=== PATIENT | female | born 1940 | race Caucasian/White ===

== ENCOUNTER 2020-11-19 13:40 | Emergency (ER) | payer MEDICARE, OTHER, SELFPAY ==
--- NOTE | ~2020-11-19 | CT_ITS ---
EXAMINATION: CT thoracic spine wo con EXAM DATE: 11/19/2020 15:47 INDICATION: mid back pain, recent fall . TECHNIQUE: Spiral CT thoracic spine wo con was performed without contrast. Axial, coronal and sagit doron images were reviewed. The dose-length product (DLP) for this examination was 1531.81 mGy-cm. Th e exposure was tailored according to patient size (auto mA exposure control), and iterative reconstru ction (ASIR) was used as additional dose reduction technique. Comparison is made to prior examination from 02/27/2019. FINDINGS: There are treated compression fractures with vertebroplasty at the T11, T12, L1 and L2 leve ls. There is mild compression fracture at T8 superior endplate which is new compared to 2019, could b e an acute finding given hazy paraspinal fat planes at this level. The mild compression fracture at t he level below, T9 was present on prior study and appears unchanged. Bones appear osteopenic. No unst able type fractures identified. 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 IMPRESSION: 1. Mild compression fractures T8 and T9, T8 possibly acute. Reviewed, dictated and finalized at location B.
[2020-11-19 13:42] VITALS: BP 144/69; PULSE 91; RESP 18; TEMP 37; O2SAT 97
--- NOTE | 2020-11-19 15:22 | ED.BACK ---
HPI - Back Pain/Injury General Chief Complaint: Back Pain/Injury <Valerie Gaona PA-C - Last Filed: 11/19/20 16:28> Stated Complaint: BACK PAIN <MARIPOSA Villagran Last Filed: 11/19/20 16:28> Time Seen by Provider: 11/19/20 14:52 <MARIPOSA Villagran Last Filed: 11/19/20 16:28> Source: patient <MARIPOSA Villagran Last Filed: 11/19/20 16:28> Mode of arrival: ambulatory <MARIPOSA Villagran Last Filed: 11/19/20 16:28> Limitations: no limitations <MARIPOSA Villagran Last Filed: 11/19/20 16:28> History of Present Illness HPI Narrative: This is a 80 year old female that presents to the ER for mid back pain present over the last couple of days. Reports the pain is worse with movement and relieved with rest. She has been taking Ibuprofen with some relief. Reports she did have a ground level fall a couple weeks ago. Reports tripping down a step and falling forward. Does not report any certain injuries after this though. Denies decreased range of motion, weakness or numbness. <Valerie Gaona PA-C - Last Filed: 11/19/20 16:28> Related Data Home Medications: Home Medications Medication Instructions Recorded Confirmed ezetimibe-simvastatin [Vytorin 1 tablet PO DAILY 02/27/19 11/19/20 10-40] lisinopril 20 mg PO DAILY 11/19/20 11/19/20 meloxicam 15 mg PO PRN 11/19/20 11/19/20 <MARIPOSA Villagran Last Filed: 11/19/20 16:28> Allergies/Adverse Reactions: Allergies Allergy/AdvReac Type Severity Reaction Status Date / Time atorvastatin Allergy Severe CHEST PAIN Verified 08/25/18 16:15 <MARIPOSA Villagran Last Filed: 11/19/20 16:28> Review of Systems Review of Systems: CONSTITUTIONAL: Denies fever SKIN: Denies rash MUSCULOSKELETAL: Reports back pain, joint pain, and myalgia. NEUROLOGIC: Denies numbness, or weakness. <Valerie Gaona PA-C - Last Filed: 11/19/20 16:28> All systems reviewed & are unremarkable except as noted in HPI and below <Valerie Gaona PA-C - Last Filed: 11/19/20 16:28> PMFSH Past Medical History Medical History: Medical History (Updated 11/19/20 @ 16:26 by Valerie Gaona PA-C) History of hyperlipidemia History of osteopenia <Valerie Gaona PA-C - Last Filed: 11/19/20 16:28> Surgical History Surgical History: Surgical History (Updated 02/27/19 @ 10:28 by Valerie Gaona PA-C) History of cataract extraction History of hysterectomy History of spinal fusion <Valerie Gaona PA-C - Last Filed: 11/19/20 16:28> Social History Social History: Social History (Updated 11/19/20 @ 15:25 by Valerie Gaona PA-C) Substance use: never <Valerie Gaona PA-C - Last Filed: 11/19/20 16:28> Exam Narrative: GENERAL: Elderly, well-nourished, and in no acute distress. HEAD: Normocephalic, atraumatic. EYES: EOMI. CHEST: Clear to auscultation. No respiratory distress. No wheezes rales or rhonchi HEART: Regular rate and rhythm. No murmur heard. Normal peripheral pulses. EXTREMITIES: Normal range of motion. No edema. Strength equal in bilateral upper and lower extremities (5/5) SKIN: Warm, dry, no rash. NEURO: No focal deficits. Alert and oriented x3. PSYCH: Normal mood and affect <Valerie Gaona PA-C - Last Filed: 11/19/20 16:28> Course Vital Signs Vital signs: Vital Signs Temperature 98.6 F 11/19/20 13:42 Pulse Rate 91 11/19/20 13:42 Respiratory Rate 18 11/19/20 13:42 Blood Pressure 144/69 H 11/19/20 13:42 Pulse Oximetry 97 11/19/20 13:42 Temperature 98.6 F 11/19/20 13:42 Pulse Rate 91 11/19/20 13:42 Respiratory Rate 18 11/19/20 13:42 Blood Pressure 144/69 H 11/19/20 13:42 Pulse Oximetry 97 11/19/20 13:42 <Valerie Gaona PA-C - Last Filed: 11/19/20 16:28> MDM - Back Pain/Injury MDM Narrative Medical decision making narrative: Patient presents the emergency department for thoracic back pain noted over the last couple
[2020-11-19] MEDS: ACETAMINOPHEN 500 MG TABLET 1000 MG PO (15:31)
== END 2020-11-19 16:35 | disposition home or self-care (01) ==
PROVIDERS: Emergency Provider General Practice; PCP Internal Medicine
DX: S22.000A Wedge compression fracture of unspecified thoracic vertebra, initial encounter for closed fracture (principal); E78.5 Hyperlipidemia, unspecified; Z98.1 Arthrodesis status; W10.9XXA Fall (on) (from) unspecified stairs and steps, initial encounter
CPT/HCPCS: 72128; 99284; A9270

== ENCOUNTER 2020-12-27 07:40 | Emergency (ER) | payer MEDICARE, OTHER, SELFPAY ==
--- NOTE | ~2020-12-27 | US_ITS ---
EXAMINATION: US right upper quadrant DATE: 12/27/2020 08:49 INDICATION: Right upper quadrant pain TECHNIQUE: Multiple grayscale and Doppler ultrasound images of the abdomen were obtained. COMPARISON: None available FINDINGS: Bowel gas obscures visualization of the pancreas. The visualized portions of the pancreas a re unremarkable. The liver is normal with normal echogenicity and echotexture. No surface nodularity. Normal hepatopetal flow in the main portal vein. There is a 3 mm nonmobile echogenic focus of the ga llbladder. The gallbladder is otherwise normal with no abnormal wall thickening or pericholecystic fl uid. The normal common bile duct measures 6 mm. There was no sonographic Luis sign. IMPRESSION: 1. No sonographic correlate for the patient's symptoms. 2. 3 mm echogenic focus of the gallbladder which could reflect a mobile stone or small polyp. Reviewed, dictated and finalized at location A. IMPRESSION: 1. No sonographic correlate for the patient's symptoms. 2. 3 mm echogenic focus of the gallbladder which could reflect a mobile stone o r small polyp.
[2020-12-27 07:46] VITALS: BP 163/73; PULSE 81; RESP 18; TEMP 36.9; O2SAT 99
[2020-12-27 08:24] LABS: Basophils Absolute Auto 0.1 K/mm3 (0.0-0.1); Basophils Percent Auto 0.9 % (0.2-1.2); Eosinophils Absolute Auto 0.3 K/mm3 (0-0.3); Eosinophils Percent Auto 5.6 % (0-4.4); Hematocrit 40.2 % (37.0-47.0); Hemoglobin 13.3 g/dL (12.0-15.0); Immature Granulocyte Absolute 0.02 K/mm3 (0.00-0.031); Immature Granulocyte Percent A 0.4 % (0-0.5); Lymphocytes Absolute Auto 2.29 K/mm3 (0.9-3.2); Lymphocytes Percent Auto 40.4 % (18.3-44.2); Mean Corpuscular HGB Conc 33.1 g/dl (32-36); Mean Corpuscular Volume 96.6 fl (80-100); Mean Platelet Volume 10.4 fl (7.4-10.4); Monocytes Absolute Auto 0.5 K/mm3 (0.1-0.6); Neutrophils Absolute Auto 2.5 K/mm3 (1.3-6.7); Neutrophils Percent Auto 43.7 % (45.5-73.1); Platelet Count Result 144 k/mm3 (150-375); Red Blood Count 4.16 M/mm3 (4.2-5.4); Red Cell Distribution Width 12.5 % (11.5-14.5); White Blood Count 5.7 K/mm3 (4.5-10.0)
[2020-12-27 08:34] LABS: Alanine Aminotransferase 27 U/L (4-35); Albumin Level 4.3 g/dL (3.5-5.1); Alkaline Phosphatase 68 U/L (38-126); Anion Gap 6 mmol/L (8-16); Aspartate Amino Transferase 34 U/L (14-36); Bilirubin,Total 0.7 mg/dL (0.2-1.3); Blood Urea Nitrogen 21 mg/dL (7-17); Calcium 9.6 mg/dL (8.4-10.2); Carbon Dioxide 27 mmol/L (22-30); Chloride 104 mmol/L (98-107); Estimated CRCL calculation 49 ml/min; Estimated Glomerular Filt Rate > 60; Glucose 114 mg/dL (65-110); Lipase 67 U/L (23-300); Potassium 4.1 mmol/L (3.4-5.0); Sodium 137 mmol/L (137-145)
[2020-12-27 09:15] LABS: Add Urine Microscopic? YES; Appearance Urine Cloudy (Clear); Bilirubin Urine Negative (Negative); Blood Urine Negative (Negative); Color Urine Yellow (Yellow); Glucose Urine UA Negative (Negative); Ketones Urine Negative (Negative); Leukocyte Esterase Ur 2+ LEU/UL (Negative); Mucus Urine Few /lpf; Nitrate Urine Negative (Negative); Protein Urine Negative (Negative); Specific Grav Ur 1.017 (1.001-1.035); Squamous Epithelial Cell Urine Many /hpf (Few); Transitional Epi Cells Urine Rare /hpf (None Seen); Urobilinogen Urine Negative mg/dL (<2.0)
--- NOTE | 2020-12-27 09:47 | ED.GENADULT ---
HPI - General Adult General Chief complaint: Abdominal Pain Stated complaint: flank pain Time Seen by Provider: 12/27/20 07:44 History of Present Illness HPI narrative: Patient is a 80-year-old female who presents ER with epigastric abdominal pain. Ongoing for over a month. Radiates to her right back. Reports worsening over the last 2 days. No fevers or chills or sweats. No nausea or vomiting. Patient thought it may have been related to chronic back pain and underwent vertebroplasty 3 weeks ago but did not improve her abdominal discomfort. She is concerned is related to her gallbladder. She does think it worsens with eating. No urinary symptoms. Reports normal bowel movements. Related Data Home Medications Medication Instructions Recorded Confirmed ezetimibe-simvastatin [Vytorin 1 tablet PO DAILY 02/27/19 11/19/20 10-40] lisinopril 20 mg PO DAILY 11/19/20 11/19/20 meloxicam 15 mg PO PRN 11/19/20 11/19/20 Allergies Allergy/AdvReac Type Severity Reaction Status Date / Time atorvastatin AdvReac Severe CHEST PAIN Verified 12/27/20 07:52 Review of Systems Review of Systems: All systems reviewed & are unremarkable except as noted in HPI and below Constitutional: Constitutional: Denies chills, Denies fever(s) and Denies weakness ENT: Denies nasal congestion and Denies sore throat Cardiovascular: Cardiovascular: Denies chest pain and Denies radiating jaw, neck or arm pain Respiratory: Respiratory: Denies cough, Denies dyspnea and Denies wheezing Gastrointestinal: Gastrointestinal: Reports abdominal pain, Denies bloating, Denies constipation, Denies diarrhea, Denies nausea and Denies vomiting Musculoskeletal: Musculoskeletal: Denies back pain and Denies muscle cramps PMFSH Past Medical History Medical History (Updated 12/27/20 @ 09:52 by Tl Jennings MD) History of hyperlipidemia History of osteopenia Surgical History Surgical History (Updated 12/27/20 @ 09:48 by Tl Jennings MD) History of cataract extraction History of hysterectomy History of spinal fusion History of vertebroplasty Social History Social History (Updated 11/19/20 @ 15:25 by Valerie Gaona PA-C) Substance use: never Exam Narrative: GENERAL: Well-appearing, well-nourished, and in no acute distress. HEAD: Normocephalic, atraumatic. CHEST: Clear to auscultation. No respiratory distress. HEART: Regular rate and rhythm. Normal peripheral pulses. ABDOMEN: Soft, mild right quadrant tenderness without guarding, nondistended, normal active bowel sounds. EXTREMITIES: Normal range of motion. No edema. SKIN: Warm, dry, no rash. NEURO: Alert and oriented x3. PSYCH: Normal mood and affect. Course Course Emergency Course: Unremarkable evaluation. Informed results. No stones on ultrasound. No evidence of cholecystitis. UA contaminated and patient without urinary symptoms. Discharge home and follow-up with PCP for further evaluation. Vital Signs Vital signs: Vital Signs Temperature 98.5 F 12/27/20 07:46 Pulse Rate 81 12/27/20 07:46 Respiratory Rate 18 12/27/20 07:46 Blood Pressure 163/73 H 12/27/20 07:46 Pulse Oximetry 99 12/27/20 07:46 Temperature 98.5 F 12/27/20 07:46 Pulse Rate 81 12/27/20 07:46 Respiratory Rate 18 12/27/20 07:46 Blood Pressure 163/73 H 12/27/20 07:46 Pulse Oximetry 99 12/27/20 07:46 Medical Decision Making Vital Signs Vital Signs: Vital Signs Temperature 98.5 F 12/27/20 07:46 Pulse Rate 81 12/27/20 07:46 Respiratory Rate 18 12/27/20 07:46 Blood Pressure 163/73 H 12/27/20 07:46 Pulse Oximetry 99 12/27/20 07:46 Temperature 98.5 F 12/27/20 07:46 Pulse Rate 81 12/27/20 07:46 Respiratory Rate 18 12/27/20 07:46 Blood Pressure 163/73 H 12/27/20 07:46 Pulse Oximetry 99 12/27/20 07:46 Lab Data Result diagrams: 12/27/20 08:11 12/27/20 08:11 Labs: Lab Results 12/27/20 12/27/20
[2020-12-27 10:20] VITALS: BP 141/85; PULSE 65; RESP 18; O2SAT 98
== END 2020-12-27 10:22 | disposition home or self-care (01) ==
PROVIDERS: Emergency Provider Emergency Medicine; PCP Internal Medicine
DX: R10.11 Right upper quadrant pain (principal); E78.5 Hyperlipidemia, unspecified; M85.80 Other specified disorders of bone density and structure, unspecified site; Z98.49 Cataract extraction status, unspecified eye; Z98.1 Arthrodesis status; R93.2 Abnormal findings on diagnostic imaging of liver and biliary tract
CPT/HCPCS: 36415; 76705; 80053; 81001; 83690; 85025; 99284

== ENCOUNTER 2023-01-29 12:27 | Inpatient (IN) | payer MEDICARE, OTHER, SELFPAY ==
[2023-01-29] VITALS (8 sets, daily range): BP systolic 120–148; BP diastolic 59–88; PULSE 85–102; RESP 11–22; TEMP 36.4–37.6; O2SAT 92–100; BMI 30.2
--- NOTE | ~2023-01-29 | XR_ITS ---
EXAMINATION: XR chest 2V 01/29/2023 13:50 INDICATION: Status post fall. Weakness. PROCEDURE: 2 view chest COMPARISON: No prior studies for comparison. FINDINGS: The lungs are clear. The cardiomediastinal silhouette is within normal limits. There are no pleural effusions. There is no pneumothorax suspected. There are multiple thoracic and lumbar co mpression fractures treated with vertebroplasty. IMPRESSION: 1: NO ACUTE CARDIOPULMONARY DISEASE. Reviewed, dictated and finalized at location B. NICAL TRAINING INSTRUCTOR
--- NOTE | ~2023-01-29 | CT_ITS ---
EXAMINATION: CT hip LT wo con DATE: 01/29/2023 14:49 INDICATION: Left hip fracture TECHNIQUE: Computed tomography (CT) of the left hip was performed without intravenous contrast. The d ose-length product was 243.92 mGy-cm. Automated exposure control and iterative reconstruction [employer] ue were employed. COMPARISON: 01/29/2023 FINDINGS: There is a minimally displaced left femoral intertrochanteric fracture with slight posterio r angulation. Soft tissue surrounding the fracture site, consistent with hematoma. No foreign bodies. No pelvic fractures are seen. 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 IMPRESSION: 1. Mildly displaced left femoral intertrochanteric fracture. Reviewed, dictated and finalized at location B. ENERGY CONSULTANT SUPERVISOR
--- NOTE | ~2023-01-29 | XR_ITS ---
XR hip LT 2V w AP pelvis, XR femur LT min 2V 01/29/2023 13:50 Indication: Left leg pain after fall Procedure: 3 views left hip and 2 views left femur Comparison: No prior studies for comparison. Findings: There is a probable nondisplaced left femoral intertrochanteric fracture. Pelvic rings are intact. There is osteitis pubis. There is lower lumbar spondylosis partially visualized. Impression: 1: Probable nondisplaced left femoral intertrochanteric fracture. Consider confirmation with CT. Reviewed, dictated and finalized at location B. NESS PROCESS REPRESENTATIVE Impression: 1: Probable nondisplaced left femoral intertrochanteric fracture. Consider conf irmation with CT. Impression: 1: Probable nondisplaced left femoral intertrochanteric fracture. Consider conf irmation with CT.
--- NOTE | ~2023-01-29 | CT_ITS ---
EXAMINATION: CT brain wo con DATE: 01/29/2023 13:33 INDICATION: Trauma. Head injury. TECHNIQUE: Computed tomography (CT) of the head was performed without intravenous contrast. The dose- length product was 681.00 mGy-cm. Automated exposure control and iterative reconstruction technique w ere employed. COMPARISON: None FINDINGS: Generalized atrophy. There are scattered mild periventricular and subcortical white matter changes, most likely related to small vessel ischemic disease (microangiopathy). No ventriculomegaly or midline shift. Basilar cisterns are patent. Paranasal sinuses and mastoids are pneumatized. No dep ressed skull fractures. No acute intracranial hemorrhage, infarction, mass or mass effect. IMPRESSION: 1. No acute intracranial abnormality. Reviewed, dictated and finalized at location B. ODIAL WORKER
--- NOTE | ~2023-01-29 | CT_ITS ---
EXAMINATION: CT cervical spine wo con DATE: 01/29/2023 13:34 INDICATION: Neck pain after trauma TECHNIQUE: Computed tomography (CT) of the cervical spine was performed without intravenous contrast. The dose-length product was 221 mGy-cm. Automated exposure control and iterative reconstruction tech nique were employed. COMPARISON: None FINDINGS: Accentuated cervical lordosis. There is degenerative anterolisthesis at C3-4, retrolisthesi s at C5-6 and anterolisthesis at C7-T1. Craniovertebral junction is normal. No paraspinal soft tissue abnormality. Lung apices are normal. Mild dextrocurvature of the cervical spine. There is multilevel uncinate and facet hypertrophy. No evidence for perched facet. IMPRESSION: 1. No acute abnormality of the cervical spine. Reviewed, dictated and finalized at location B. CASTING OPERATOR
--- NOTE | ~2023-01-29 | XR_ITS ---
XR surgery orthopedic Indication: Left intertrochanteric nail placement TECHNIQUE: Fluoroscopy used during Left intertrochanteric nail placement performed by [Matty Markham MD] on 01/31/2023. 89 seconds of fluoroscopy with 6 fluoroscopic images captured. FINDINGS: Correlate with procedure note. IMPRESSION: Fluoroscopy used during Left intertrochanteric nail placement. Reviewed, dictated and finalized at location B. UNICATIONS SUPERINTENDENT
--- NOTE | 2023-01-29 13:00 | ED.FALL ---
HPI - Fall General Chief Complaint: Fall Stated Complaint: fall-ladder 6ft Time Seen by Provider: 01/29/23 12:40 History of Present Illness HPI Narrative: Patient is an 82-year-old female here after a fall off of a ladder. She states that she was in the garage on a 6 ft ladder, about care home up the ladder when she lost her footing and fell to the ground. She notes she fell onto her left side, she does believe that she hit her head. She is currently complaining of left hip and upper leg pain. She was lying on the ground for approximately 45 minutes before family was able to hear her and help her. EMS was called. [facility] gave her 25 mcg of fentanyl which only mildly helped the pain. She is currently complaining of pain in her left hip and left upper leg. Denies any back pain or headache. She denies any blood thinner use. No prodromal chest pain, shortness of breath or lightheadedness prior to the fall. Related Data Home Medications Medication Instructions Recorded Confirmed ezetimibe 10 mg-simvastatin 40 mg 1 tablet PO DAILY 02/27/19 11/19/20 tablet (Vytorin) lisinopril 20 mg tablet 20 mg PO DAILY 11/19/20 11/19/20 meloxicam 15 mg tablet 15 mg PO PRN 11/19/20 11/19/20 Allergies Allergy/AdvReac Type Severity Reaction Status Date / Time atorvastatin AdvReac Severe CHEST PAIN Verified 01/29/23 12:37 Review of Systems Review of Systems: All systems reviewed & are unremarkable except as noted in HPI and below PMFSH Past Medical History Medical History (Updated 01/29/23 @ 14:43 by Brenda Martin MD) History of hyperlipidemia History of osteopenia Surgical History Surgical History (Updated 12/27/20 @ 09:48 by Tl Jennings MD) History of cataract extraction History of hysterectomy History of spinal fusion History of vertebroplasty Social History Social History (Updated 11/19/20 @ 15:25 by Valerie Gaona PA-C) Substance use: never Exam Narrative: GENERAL: Well-appearing, well-nourished, and in no acute distress. HEAD: Normocephalic, atraumatic. EYES: PERRLA and EOMI. ENT: Nares clear. Mucous membranes moist. NECK: Supple. No C-spine tenderness CHEST: Clear to auscultation. No respiratory distress. No chest wall tenderness. HEART: Regular rate and rhythm. Normal peripheral pulses. ABDOMEN: Soft, nontender, nondistended. EXTREMITIES: No thoracic or lumbar tenderness. No upper extremity trauma appreciated. Strong bilateral radial pulses with normal range of motion bilateral upper extremities. Right hip nontender. Strong DP pulses bilaterally. She has tenderness over the lateral left hip and is holding this leg in flexion. Tenderness seems to extend to mid femur. No knee tenderness appreciated. Normal sensation distal to the injury. SKIN: Warm, dry, no rash. NEURO: No focal deficits. Alert and oriented x3. PSYCH: Normal mood and affect. Course Course Emergency Course: Chart review performed. Patient here after a fall with left hip pain. Triage vitals within normal limits. Last visit in our system was for abdominal pain and flank pain in 2020. Patient seen evaluated, appears to be in pain. She appears to have an isolated injury to the left hip and upper leg. Morphine and Zofran ordered for pain. Advised to remain NPO. Will additionally do CT head, C-spine given she did have head injury and is greater than 65, cannot apply Wirt head CT rules. Chest x-ray additionally ordered given mechanism. Basic blood work including a CPK of been ordered as she was down on the floor for 45 minutes waiting for help. Anticipate she will likely have a hip fracture and require hospitalization. Imaging reviewed by myself. She appears to have a left IT fracture. Will discuss with orthopedic surgery. Lab work performed, CBC within normal limits, mild alejandra, will give IVF, CPK only 270, unlikely rhabdomyolysis. Spoke with Dr. Capellan, patient should be NPO at midnight. Spoke with Pamela
--- NOTE | 2023-01-29 13:07 | ECG_ITS ---
Measurements Intervals Loop Rate: 87 P: 35 SC: 192 QRS: -6 QRSD: 105 T: 10 QT: 373 QTc: 449 Interpretive Statements SINUS RHYTHM LOW QRS VOLTAGE IN PRECORDIAL LEADS BASELINE ARTIFACT- I, II, III, AVR, AVL, AVF, V1 BORDERLINE ECG NO PREVIOUS ECG AVAILABLE FOR COMPARISON Electronically Signed On 01-29-2023 13:38:49 AMMUNITION STOREKEEPER by Freddie Toro D.O.
[2023-01-29] MEDS: MORPHINE SULFATE (*CRX) 4 MG/ML INJ IV PUSH (13:08)
[2023-01-29] MEDS: ONDANSETRON INJ 4 MG/2 ML VIAL IV PUSH (13:11)
[2023-01-29 13:59] LABS: Basophils Percent Auto 0.4 % (0.2-1.2); Eosinophils Absolute Auto 0.1 K/mm3 (0-0.3); Eosinophils Percent Auto 0.9 % (0-4.4); Hematocrit 32.9 % (37.0-47.0); Immature Granulocyte Absolute 0.04 K/mm3 (0.00-0.031); Immature Granulocyte Percent A 0.5 % (0-0.5); Lymphocytes Absolute Auto 1.03 K/mm3 (0.9-3.2); Lymphocytes Percent Auto 13.9 % (18.3-44.2); Mean Corpuscular HGB Conc 33.4 g/dl (32-36); Mean Corpuscular Hemoglobin 32.1 pg (26-34); Mean Corpuscular Volume 95.9 fl (80-100); Mean Platelet Volume 10.4 fl (7.4-10.4); Monocytes Absolute Auto 0.5 K/mm3 (0.1-0.6); Monocytes Percent Auto 6.1 % (2.6-8.5); Neutrophils Absolute Auto 5.8 K/mm3 (1.3-6.7); Neutrophils Percent Auto 78.2 % (45.5-73.1); Platelet Count Result 127 k/mm3 (150-375); Red Blood Count 3.43 M/mm3 (4.2-5.4); Red Cell Distribution Width 13.7 % (11.5-14.5); White Blood Count 7.4 K/mm3 (4.5-10.0)
[2023-01-29 14:09] LABS: Alanine Aminotransferase 34 U/L (6-35); Albumin Level 3.9 g/dL (3.5-5.1); Alkaline Phosphatase 81 U/L (38-126); Anion Gap 9 mmol/L (8-16); Aspartate Amino Transferase 46 U/L (14-36); Bilirubin,Total 0.8 mg/dL (0.2-1.3); Blood Urea Nitrogen 40 mg/dL (7-17); Calcium 9.3 mg/dL (8.4-10.2); Carbon Dioxide 24 mmol/L (22-30); Chloride 100 mmol/L (98-107); Creatine Kinase 270 U/L (30-135); Estimated Glomerular Filt Rate 43; Glucose 104 mg/dL (65-110); Potassium 3.5 mmol/L (3.4-5.0); Sodium 133 mmol/L (137-145)
[2023-01-29 14:10] LABS: INR 0.9
[2023-01-29 14:11] LABS: Partial Thromboplastin Time 29.1 SECONDS (22.3-36.8)
[2023-01-29] MEDS: SODIUM CHLORIDE 0.9% IV 1,000 ML 999 ML IV CONT (14:52)
[2023-01-29 15:34] LABS: Appearance Urine Clear (Clear); Bilirubin Urine Negative (Negative); Blood Urine Negative (Negative); Color Urine Yellow (Yellow); Glucose Urine UA Negative (Negative); Ketones Urine Negative (Negative); Leukocyte Esterase Ur Negative LEU/UL (Negative); Nitrate Urine Negative (Negative); Protein Urine Negative (Negative); Specific Grav Ur 1.012 (1.001-1.035); pH Urine 6.5 (5.0-9.0)
[2023-01-29 15:40] LABS: Add Urine Microscopic? NO
--- NOTE | 2023-01-29 16:12 | ADMGEN ---
This patient, Ally Brooks, was admitted to [facility] Room 330-01. Patient/family oriented to hospital policies and general routines including ID bracelet, bed and alarms, visiting hours, pain management, procedures, bathroom and other care routines, personal items, smoking policy, room service/diet, and visiting hours. Information on how to activate the Rapid Response Team has been discussed. Patient/Family are encouraged to report perceived risks to care and to ask questions if they do not understand what they are told or what they should do.
--- NOTE | 2023-01-29 17:19 | PM.IMHP ---
H&P: HPI History of Present Illness Date/Time: 01/29/23 18:00 Chief Complaint: Left hip pain after a fall. Narrative: This is a pleasant 82-year-old female with hypertension, chronic kidney disease stage 3, anemia, and gastroesophageal reflux disease who presented to the emergency department via EMS for evaluation of left hip pain after a fall. The patient provides the following history. She was on the 4th rung of a 6 ft ladder getting some decorations out of the garage when she lost her footing and fell to the ground. She landed on her left side with immediate pain in the left hip and upper leg. She believes that she hit her head but there was no loss of consciousness. She yelled for her but he did not hear her and eventually someone came around about 45 minutes later and called 911. CT of the head and neck were without acute findings. Hip CT showed a mildly displaced left femoral inter trochanteric fracture. She is being admitted in this setting for pain control and orthopedic consultation. At the time my evaluation she feels better after having received morphine. She denies paresthesias, skin color, and temperature changes distal to the fracture site. Review of Systems Review of Systems: Twelve systems were reviewed. No fever, chills, or sweats. No recent cold or flu symptoms. No history of cardiac or pulmonary disease. She denies exertional chest pain and shortness of breath. No orthopnea, paroxysmal nocturnal dyspnea, or lower extremity edema. No nausea, vomiting, or diarrhea. No dysuria. Except as documented, all other systems were reviewed and are negative. [facility] Past Medical History Medical History (Updated 01/29/23 @ 22:07 by Pamela Dinero PA-C) Chronic kidney disease, stage 3 Gastroesophageal reflux disease Hyperlipidemia Hypertension Osteopenia Surgical History Surgical History (Updated 01/29/23 @ 17:24 by Pamela Dinero PA-C) History of bilateral carpal tunnel release History of breast biopsy History of cataract extraction History of hysterectomy History of lumbar fusion History of repair of left rotator cuff History of vertebroplasty Family History Family History (Updated 01/29/23 @ 17:24 by Pamela Dinero PA-C) Other Family history non-contributory Social History Social History (Updated 01/29/23 @ 17:24 by Pamela Dinero PA-C) Social History: Surrogate medical decision maker: Jose Brooks, spouse. Code status: Modified code, no intubation. Okay with CPR and medication. Smoking status: Never smoker Substance use: never Lack of Transportation: No Lack of Food: Never True Current Housing: I Have Housing Concerned About Future Housing: No Difficulty Paying Gas/Electric Bills: No Difficulty Paying for Meds: No Currently Unemployed: No Education: Decline to Answer Difficulty w/ Childcare or Family Care: No Spiritual care concerns: No Meds Home Medications and Allergies Home Medications Medication Instructions Recorded Confirmed Type allopurinol 100 mg tablet 100 mg PO DAILY 01/29/23 01/29/23 History furosemide 40 mg tablet 40 mg PO BID 01/29/23 01/29/23 History losartan 25 mg tablet 25 mg PO DAILY 01/29/23 01/29/23 History pantoprazole 40 mg tablet,delayed 40 mg PO DAILY 01/29/23 01/29/23 History release Allergies Allergy/AdvReac Type Severity Reaction Status Date / Time atorvastatin AdvReac Severe CHEST PAIN Verified 01/29/23 16:13 Vital Signs Vital Signs - 24 hr 01/29/23 12:26 01/29/23 12:55 01/29/23 13:11 Temperature 97.5 F L Pulse Rate 87 85 92 Respiratory Rate 16 19 22 H Blood Pressure 124/73 121/70 148/88 H Pulse Oximetry 100 100 100 Oxygen Delivery Room Air 01/29/23 14:02 01/29/23 14:49 01/29/23 15:06 Temperature Pulse Rate 90 95 96 Respiratory Rate 12 11 L 13 Blood Pressure 130/67 139/70 127/59 L Pulse Oximetry 100 99 92 Oxygen Delivery 01/29/23 16:12 01/29/23 16:45 Temperature
[2023-01-29] MEDS: MORPHINE SULFATE (*CRX) 2 MG/ML INJ IV PUSH ×2 (18:53→23:38)
[2023-01-29] MEDS: traMADol HCL (*CRX) 25 MG TABLET PO (20:42)
[2023-01-30] MEDS: MORPHINE SULFATE (*CRX) 2 MG/ML INJ IV PUSH ×5 (05:33→22:10)
[2023-01-30 06:00] VITALS: BP 107/59; PULSE 85; RESP 18; TEMP 36.8; O2SAT 95
[2023-01-30 06:47] LABS: Hematocrit 29.4 % (37.0-47.0); Hemoglobin 9.7 g/dL (12.0-15.0); Immature Platelet Fraction Pct 2.5 % (0.9-11.2); Mean Corpuscular Hemoglobin 32.3 pg (26-34); Mean Platelet Volume 10.8 fl (7.4-10.4); Platelet Count Result 113 k/mm3 (150-375); Red Cell Distribution Width 13.7 % (11.5-14.5); White Blood Count 7.3 K/mm3 (4.5-10.0)
[2023-01-30 07:15] LABS: Alanine Aminotransferase 26 U/L (6-35); Albumin Level 3.1 g/dL (3.5-5.1); Alkaline Phosphatase 53 U/L (38-126); Anion Gap 6 mmol/L (8-16); Aspartate Amino Transferase 38 U/L (14-36); Bilirubin,Total 0.9 mg/dL (0.2-1.3); Blood Urea Nitrogen 28 mg/dL (7-17); Calcium 8.5 mg/dL (8.4-10.2); Carbon Dioxide 25 mmol/L (22-30); Chloride 105 mmol/L (98-107); Estimated Glomerular Filt Rate 48; Glucose 106 mg/dL (65-110); Magnesium 2.1 mg/dL (1.6-2.3); Potassium 3.6 mmol/L (3.4-5.0); Sodium 136 mmol/L (137-145)
--- NOTE | 2023-01-30 08:10 | PM.CNOR ---
Assessment and Plan Assessment and plan (1) Closed intertrochanteric fracture of left femur: Qualifiers: Encounter type: initial encounter Fracture alignment: displaced Qualified Code(s): S72.142A - Displaced intertrochanteric fracture of left femur, initial encounter for closed fracture Code(s): S72.142A - Displaced intertrochanteric fracture of left femur, initial encounter for closed fracture Status: Acute Assessment and Plan: 82-year-old woman with fall at home yesterday. Left hip fracture with impaction, comminution. New patient evaluation for chief complaint Left hip fracture. History, physical exam and radiographs reviewed with the patient. Discussed the condition, nature, etiology and course of natural history with the patient. Treatment options including surgical and nonoperative treatment were reviewed. Risks and benefits of each as well as alternatives reviewed. The patient's questions were answered. Conservative treatment ice, Pain control, mechanical DVT prophylaxis. Discussed nonoperative and operative treatment options with the patient. Risks and benefits of each as well as alternatives were reviewed. All of the patient's questions were answered. The risks of surgery reviewed including but not limited to: Neurovascular damage, wound complication, infection, blood clot, pulmonary embolus, stroke, myocardial infarction, and anesthetic risks up to and including . Continued pain and possible dysfunction were explained. Specific risks of the procedure including later recurrence of deformity. No guarantees were offered. If hardware used, discussed risk of failure/ breakage and possible need for removal. If complications occur, the patient understands the need for further treatment, possible further surgery. Patient verbalizes understanding and wishes to proceed. PLAN: left reduction with trochanteric nail fixation History of Present Illness HPI Consult date: 01/30/23 Requesting physician: Brenda Martin MD Chief complaint: Left Hip Fracture Narrative: 82-year-old with fall at home yesterday off of ladder. Left hip pain and inability to move left leg found to have left hip fracture. Admitted for further care. Lives at home with . Previous independent ambulator. Denies any prior problems with the left hip. Denies numbness or tingling. Review of Systems Constitutional: Constitutional: Denies fever(s) Eyes: Eyes: Denies blurry vision ENT: Reports Normal hearing present Cardiovascular: Cardiovascular: Denies chest pain and Denies dyspnea Respiratory: Respiratory: Denies dyspnea and Denies wheezing Gastrointestinal: Gastrointestinal: Denies abdominal pain Genitourinary: Genitourinary: Denies urinary urgency Musculoskeletal: Musculoskeletal: Reports as per HPI and Denies numbness Integumentary/Breasts: Skin/Breast: Denies changing lesions and Denies sores Neurologic: Reports Normal hearing present, Denies behavioral changes, Denies confusion, Denies numbness and Denies convulsions Psychiatric: Psychiatric: Denies behavioral changes, Denies confusion and Denies hallucinations Endocrine: Endocrine: Denies heat intolerance Hematologic/Lymphatic: Hematologic/Lymphatic: Denies easy bleeding Allergic/Immunologic: Allergic/Immunologic: Denies wheezing PMFSH Past Medical History Medical History Chronic kidney disease, stage 3 Gastroesophageal reflux disease Hyperlipidemia Hypertension Osteopenia Surgical History Surgical History History of bilateral carpal tunnel release History of breast biopsy History of cataract extraction History of hysterectomy History of lumbar fusion History of repair of left rotator cuff History of vertebroplasty Family History Family History Other Family history non
[2023-01-30] MEDS: ACETAMINOPHEN 325 MG TABLET 650 MG PO (10:10)
[2023-01-30] MEDS: LOSARTAN POTASSIUM 25 MG TABLET PO (10:11)
[2023-01-30] MEDS: allopurinoL 100 MG TABLET PO (10:11)
[2023-01-30] MEDS: PANTOPRAZOLE 40 MG TABLET PO (10:11)
[2023-01-30] MEDS: FUROSEMIDE 40 MG TABLET PO (10:11)
[2023-01-30] MEDS: SODIUM CHLORIDE 0.9% IV 1,000 ML 75 ML IV CONT ×2 (11:15→22:10)
[2023-01-30 14:00] VITALS: BP 99/51; PULSE 74; RESP 16; TEMP 35.7; O2SAT 97
--- NOTE | 2023-01-30 14:37 | PM.IMPN ---
Progress Note: A&P Assessment and Plan (1) Closed intertrochanteric fracture of left femur: Qualifiers: Encounter type: initial encounter Fracture alignment: displaced Qualified Code(s): S72.142A - Displaced intertrochanteric fracture of left femur, initial encounter for closed fracture Code(s): S72.142A - Displaced intertrochanteric fracture of left femur, initial encounter for closed fracture Status: Acute Assessment and Plan: Hip CT showed left inter trochanteric fracture Ortho consulted, to have surgical repair tomorrow at 12 continue pain control (2) Elevated creatine kinase: Code(s): R74.8 - Abnormal levels of other serum enzymes Status: Acute Assessment and Plan: CK was a bit elevated but likely due to being on the ground for 45 minutes post fall. Repeat CK level in a.m (3) Chronic kidney disease, stage 3: Code(s): N18.30 - Chronic kidney disease, stage 3 unspecified Status: Chronic Assessment and Plan: chronic kidney disease stage 3 and her creatinine today is 1.10. continue to monitor Subjective Date/time seen: 01/30/23 14:37 Interval history: Patient is an 82 YO female with PMH hypertension, chronic kidney disease stage 3, anemia, and gastroesophageal reflux disease admitted from ER for left hip pain after a fall. She was on the 4th rung of a 6 ft ladder getting some decorations out of the garage when she lost her footing and fell to the ground. She landed on her left side with immediate pain in the left hip and upper leg. She believes that she hit her head but there was no loss of consciousness. CT of the head and neck showed no acute findings. Hip CT showed a mildly displaced left femoral inter trochanteric fracture. She denies paresthesias, skin color, and temperature changes distal to the fracture site. Ortho consulted and scheduled for surgery tomorrow at noon. Will make NPO at midnight, continue pain control and fluids per her son's request. PT/OT and care coordination consulted for d/c planning post surgery as she will likely need rehab placement. Review of Systems Review of Systems: Twelve systems were reviewed. No fever, chills, or sweats. No recent cold or flu symptoms. No history of cardiac or pulmonary disease. She denies exertional chest pain and shortness of breath. No orthopnea, paroxysmal nocturnal dyspnea, or lower extremity edema. No nausea, vomiting, or diarrhea. No dysuria. Except as documented, all other systems were reviewed and are negative. Exam Narrative: General: Well-developed female appearing younger than her stated age supine in bed in moderate pain. HEENT: Normocephalic, atraumatic. PERRL, EOMI. Oral mucosa moist. Neck: Supple. Respiratory: Lungs are clear to auscultation bilaterally. Cardiovascular: RRR with S1-S2. Gastrointestinal: Abdomen is soft, nontender, and nondistended with positive bowel sounds. Skin: Warm and dry. No rash or lesions on limited exam. Extremities: No cyanosis, clubbing, or edema. Radial and pedal pulses intact. Musculoskeletal: She is tender to palpation over the left anterolateral hip. Neurological: Alert and oriented. Cranial nerves 2-12 are grossly intact. No gross focal deficits to casual conversation. Psychiatric: Pleasant and cooperative with normal mood and affect. Judgment and insight intact. Objective Data Vital Signs Vital Signs: Vital Signs - 24 hr 01/29/23 14:49 01/29/23 15:06 01/29/23 16:12 Temperature 97.6 F Pulse Rate 95 96 102 H Respiratory Rate 11 L 13 18 Blood Pressure 139/70 127/59 L 148/66 H Pulse Oximetry 99 92 98 Oxygen Delivery 01/29/23 16:45 01/29/23 22:00 01/30/23 06:00 Temperature 99.6 F 98.3 F Pulse Rate 90 85 Respiratory Rate 18 18 Blood Pressure 120/60 107/59 L Pulse Oximetry 97 95 Oxygen Delivery Room Air 01/30/23 10:11 01/30/23 14:00 Temperature 96.2 F L Pulse Rate 74 Respiratory Rate 16 Blo
[2023-01-30] MEDS: TIZANIDINE HCL 2 MG TABLET PO (15:31)
[2023-01-30 20:00] VITALS: PULSE 74; RESP 16; O2SAT 97
[2023-01-30 22:00] VITALS: BP 120/61; PULSE 79; RESP 12; TEMP 36.9; O2SAT 96
[2023-01-31] VITALS (12 sets, daily range): BP systolic 106–134; BP diastolic 51–67; PULSE 83–101; RESP 12–18; TEMP 36–38.8; O2SAT 92–100
[2023-01-31] MEDS: TIZANIDINE HCL 2 MG TABLET PO (00:50)
[2023-01-31] MEDS: MORPHINE SULFATE (*CRX) 2 MG/ML INJ IV PUSH ×5 (01:52→20:44)
[2023-01-31 05:43] LABS: Basophils Percent Auto 0.2 % (0.2-1.2); Eosinophils Absolute Auto 0.2 K/mm3 (0-0.3); Hematocrit 30.4 % (37.0-47.0); Immature Granulocyte Absolute 0.06 K/mm3 (0.00-0.031); Immature Granulocyte Percent A 0.6 % (0-0.5); Immature Platelet Fraction Pct 2.4 % (0.9-11.2); Lymphocytes Absolute Auto 1.53 K/mm3 (0.9-3.2); Lymphocytes Percent Auto 15.8 % (18.3-44.2); Mean Corpuscular HGB Conc 32.9 g/dl (32-36); Mean Corpuscular Hemoglobin 32.3 pg (26-34); Mean Corpuscular Volume 98.1 fl (80-100); Mean Platelet Volume 10.4 fl (7.4-10.4); Monocytes Absolute Auto 0.9 K/mm3 (0.1-0.6); Monocytes Percent Auto 9.5 % (2.6-8.5); Neutrophils Percent Auto 71.9 % (45.5-73.1); Platelet Count Result 106 k/mm3 (150-375); Red Cell Distribution Width 13.7 % (11.5-14.5); White Blood Count 9.7 K/mm3 (4.5-10.0)
[2023-01-31 06:08] LABS: Anion Gap 7 mmol/L (8-16); Blood Urea Nitrogen 28 mg/dL (7-17); Calcium 8.3 mg/dL (8.4-10.2); Carbon Dioxide 26 mmol/L (22-30); Chloride 105 mmol/L (98-107); Creatine Kinase 137 U/L (30-135); Estimated Glomerular Filt Rate 53; Glucose 106 mg/dL (65-110); Potassium 3.7 mmol/L (3.4-5.0); Sodium 138 mmol/L (137-145)
--- NOTE | 2023-01-31 08:24 | WPDHPUPDATE1 ---
History and Physical Update Update Date/Time: 01/31/23 08:24 History and Physical has been reviewed, including an updated exam of the patient. There are NO changes in the patient's condition. Risks, benefits, and alternatives have been discussed and questions answered. Patient agrees to proceed with procedure.
--- NOTE | 2023-01-31 09:03 | PM.IMPN ---
Progress Note: A&P Assessment and Plan (1) Closed intertrochanteric fracture of left femur: Qualifiers: Encounter type: initial encounter Fracture alignment: displaced Qualified Code(s): S72.142A - Displaced intertrochanteric fracture of left femur, initial encounter for closed fracture Code(s): S72.142A - Displaced intertrochanteric fracture of left femur, initial encounter for closed fracture Status: Acute Assessment and Plan: 01/30/[address] showed left inter trochanteric fracture Ortho consulted, to have surgical repair tomorrow at 12 continue pain control 01/31/23: S/P Trochanteric nail fixation of left hip intertrochanteric fracture. Continue pain control PT and OT ordered for tomorrow, will likely need rehab placement Orthopedics following (2) Elevated creatine kinase: Code(s): R74.8 - Abnormal levels of other serum enzymes Status: Acute Assessment and Plan: 01/30/23: CK was a bit elevated but likely due to being on the ground for 45 minutes post fall. Repeat CK level in a.m 01/31/23: Total CK 137 (3) Chronic kidney disease, stage 3: Code(s): N18.30 - Chronic kidney disease, stage 3 unspecified Status: Chronic Assessment and Plan: 01/30/23: chronic kidney disease stage 3 and her creatinine today is 1.10. continue to monitor 01/31/23: BUN 28, creatinine 1.0 Continue to monitor Time Spent With Patient Time with patient: Greater than 35 minutes Subjective Date/time seen: 01/31/23 09:03 Interval history: This is an 82 year old female who presented to the hospital after sustaining a fall from a 6 foot ladder. Patient was on the 4th rung when she lost her footing falling on her left side. She had immediate pain in the left hip and upper leg. Work up in the hospital includes a head CT which was negative for any acute intracranial abnormality; CT of the C-spine was negative for any acute abnormality; probable nondisplaced left femoral intertrochanteric fracture; left femur x-ray shown probable nondisplaced left femoral intertrochanteric fracture; chest x-ray which did not reveal any acute cardiopulmonary disease; Left hip CT which revealed mild displaced left femoral intertrochanteric fracture. Orthopedics was consulted. UA was negative for bacteria. Total CK 270, BUN 40, Creatinine 1.20 On examination today patient is alert and oriented x4, lying in the bed. She denies any pain at this time. S/P ORIF of left hip fracture. Currently has an ice bag to her left hip with two small incisions present that are well approximated. VSS, she is on room air, she remains afebrile. She denies any nausea, vomiting, diarrhea, shortness of breath, chest pain, or abdominal pain. Labs today revealed WBC 9.7, Hgb 10., Hct 30.4,Na+ 138, K+ 3.7, Chloride 105, BUN 28, Creatinine 1.0, Ca+ 8.3, Total CK 137. Review of Systems Review of Systems: All systems reviewed & are unremarkable except as noted in HPI and below Constitutional: Constitutional: Reports as per HPI and Reports no additional constitutional complaints Eyes: Eyes: Reports as per HPI and Reports no additional eye complaints ENT: Reports system reviewed and no additional complaints, except as documented and Reports as per HPI Cardiovascular: Cardiovascular: Reports as per HPI and Reports no additional cardiovascular complaints Respiratory: Respiratory: Reports as per HPI and Reports no additional respiratory complaints Gastrointestinal: Gastrointestinal: Reports as per HPI and Reports no additional gastrointestinal complaints Genitourinary: Genitourinary: Reports no additional female genitourinary complaints and Reports as per HPI Musculoskeletal: Musculoskeletal: Reports no additional musculoskeletal complaints and Reports as per HPI Integumentary/Breasts: Skin/Breast: Reports system reviewed and no additional complaints, except as docu and Reports as per HPI Neurologic: Reports system re
[2023-01-31] MEDS: ACETAMINOPHEN 500 MG TABLET 1000 MG PO (11:35)
[2023-01-31] MEDS: LACTATED RINGERS 1,000 ML 30 ML IV CONT ×2 (11:45→13:40)
--- NOTE | 2023-01-31 11:45 | WPDANESEPPF ---
Anes - Initial Pre Proc Eval Procedure: Operation Date: 01/31/23 12:00 Proposed Procedures p Left Hip Intertrochanteric Nail(Left) - Matty Markham MD Date/Time: 01/31/23 11:45 Surgeon: Truong Sylvester MD Pre Op Diagnosis: Left Hip Fracture Patient Data Age: 82 Gender: F Height: 1.5 m Weight: 68 kg Last Vital Signs Temp 36.6 C 01/31/23 04:18 Pulse 87 01/31/23 04:18 Resp 16 01/31/23 04:18 BP 130/61 01/31/23 04:18 Pulse Ox 98 01/31/23 04:18 O2 Del Method Room Air 01/31/23 08:10 Allergies Allergy/AdvReac Type Severity Reaction Status Date / Time atorvastatin AdvReac Severe CHEST PAIN Verified 01/31/23 11:23 Home Medications Medication Instructions Recorded Confirmed Type allopurinol 100 mg tablet 100 mg PO DAILY 01/29/23 01/29/23 History furosemide 40 mg tablet 40 mg PO BID 01/29/23 01/29/23 History losartan 25 mg tablet 25 mg PO DAILY 01/29/23 01/29/23 History pantoprazole 40 mg tablet,delayed 40 mg PO DAILY 01/29/23 01/29/23 History release Laboratory Tests 01/31/23 05:19 WBC 9.7 K/mm3 (4.5-10.0) RBC 3.10 L M/mm3 (4.2-5.4) Hgb 10.0 L g/dL (12.0-15.0) Hct 30.4 L % (37.0-47.0) MCV 98.1 fl (80-100) MCH 32.3 pg (26-34) MCHC 32.9 g/dl (32-36) RDW 13.7 % (11.5-14.5) Plt Count 106 L k/mm3 (150-375) MPV 10.4 fl (7.4-10.4) Immature Gran % (Auto) 0.6 H % (0-0.5) Neut % (Auto) 71.9 % (45.5-73.1) Lymph % (Auto) 15.8 L % (18.3-44.2) Mcduffie % (Auto) 9.5 H % (2.6-8.5) Eos % (Auto) 2.0 % (0-4.4) Baso % (Auto) 0.2 % (0.2-1.2) Lymph # (Auto) 1.53 K/mm3 (0.9-3.2) [place]duffie # (Auto) 0.9 H K/mm3 (0.1-0.6) Eos # (Auto) 0.2 K/mm3 (0-0.3) Baso # (Auto) 0.0 K/mm3 (0.0-0.1) Abs Immat Gran (auto) 0.06 H K/mm3 (0.00-0.031) Absolute Neuts (auto) 7.0 H K/mm3 (1.3-6.7) Absolute Nucleated RBC 0.0 K/mm3 (0.0-0.012) Nucleated RBC % 0.0 % (0.0-0.2) % Immature Plt Fraction 2.4 % (0.9-11.2) Sodium 138 mmol/L (137-145) Potassium 3.7 mmol/L (3.4-5.0) Chloride 105 mmol/L (98-107) Carbon Dioxide 26 mmol/L (22-30) Anion Gap 7 L mmol/L (8-16) BUN 28 H mg/dL (7-17) Creatinine 1.00 mg/dL (0.7-1.0) Estim Creat Clear Calc Not Reportable Estimated GFR 53 L (59 - ) Glucose 106 mg/dL (65-110) Calcium 8.3 L mg/dL (8.4-10.2) Total Creatine Kinase 137 H U/L (30-135) Patient hx anesthesia problems: none Family hx anesthesia problems: none Results Review: All pre-operative results and documents have been reviewed as part of the pre-operative evaluation. [facility] Past Medical History Medical History Chronic kidney disease, stage 3 Gastroesophageal reflux disease Hyperlipidemia Hypertension Osteopenia Surgical History Surgical History History of bilateral carpal tunnel release History of breast biopsy History of cataract extraction History of hysterectomy History of lumbar fusion History of repair of left rotator cuff History of vertebroplasty Family History Family History Other Family history non-contributory Social History Social History Social History: Surrogate medical decision maker: Jose Brooks, spouse. Code status: Modified code, no intubation. Okay with CPR and medication. Smoking status: Never smoker Substance use: never Lack of Transportation: No Lack of Food: Never True Current Housing: I Have Housing Concerned About Future Housing: No Difficulty Paying Gas/Electric Bills: No Difficulty Paying for Meds: No Currently Unemployed: No Education: Decline to Answer Difficulty w/ Childcare or Family Care: No Spiritual care conc
[2023-01-31] MEDS: KETOROLAC 15 MG/ML VIAL (*BKC) IV PUSH (11:53)
[2023-01-31] MEDS: TRANEXAMIC ACID 1,000MG/ISO100 1,000 MG/100 ML BAG 200 MG IVPB (11:53)
[2023-01-31] MEDS: ceFAZolin 2 GM/D5W 50 ML 2 GM/50 ML BAG IVPB (12:15)
[2023-01-31] MEDS: BUPIVACAINE/EPINEPHRINE 0.5% 50 ML VIAL INFILTRATE (13:03)
--- NOTE | 2023-01-31 13:47 | W.PM.PROC2 ---
Procedure Note - Detailed Date of Procedure 01/31/23 Pre-op Diagnosis Left Hip Fracture Post-op Diagnosis Same Procedure Performed Trochanteric nail fixation left hip intertrochanteric fracture Surgeon Matty Markham MD [employer] Specialist 1st banking assistant Anesthesia General Indications 82-year-old woman who fell and sustained a left hip intertrochanteric fracture. Presents for operative treatment Description of Procedure After informed consent the operative extremity was marked in the preoperative holding area. Patient received intravenous antibiotics. The patient was taken to the operative room, placed in the supine position, general anesthesia induced by the anesthesia team. Patient was placed on a fracture table with longitudinal traction applied to the left leg. Right leg was extended out of the field. The hip fracture was reduced to near anatomic position and verified with image intensification. A time-out was performed confirming the patient, site of the surgery and plan. The left lower extremity was prepped and draped sterilely from the knee to the iliac crest region using a ChloraPrep skin solution. Incision was made just proximal to greater trochanter down to the subcutaneous tissues. Hemostasis controlled with electrocautery. Blunt dissection through the fascia to the tip of the greater trochanter. A starter awl was placed at the tip of the greater trochanter into the medullary canal of the femur. This was checked with image intensification and was in good position. Intramedullary guide pérez positioned. A one-step hand reaming done proximally. Intramedullary canal was reamed with a 12.5 millimeter flexible reamer. Neck angle selected off of preoperative radiographs temp plating. 130 degree 12mm X 20cm Nail opened on the back table and assembled. This was then inserted over the guide pérez to the correct depth. Guide pérez removed. Lag screw was then placed with a stab incision over the lateral femur using a 10 blade knife. Blunt dissection down to the lateral side of the bone. Soft tissue protectors placed. Guide pin placed in the center- center position of the femoral head and measured. 85 millimeter x 10 millimeter lag screw placed to correct depth and verified with image intensification. Traction released from the leg and compression of the fracture performed with the external compression device. Distal locking of the nail then performed. Stab incision made lateral distal thigh. Blunt dissection down lateral side of the femur. Soft tissue protector placed. Femur drilled from lateral to medial through the distal nail. Distal femur measured and the appropriate size screw placed. Image intensification confirmed the placement through the locking hole. Final image intensification confirmed reduction of the fracture and placement of the hardware. Wounds then thoroughly irrigated with antibiotic solution. Fascia repaired with 0 Vicryl interrupted suture. Subcutaneous tissue repaired with 00 Vicryl interrupted suture and skin repaired with 3-0 Monocryl subcuticular stitch and Dermabond. Sterile dressings applied. Patient then awoke from anesthesia, extubated, taken to recovery room stable condition. All sponge, needle and instrument counts correct at the end the case. Implants Arthrex left side standard trochanteric nail, 12 mm, 130 degree with 85 mm lag screw, 42 mm distal locking screw. Left handed screw utilized. Estimated Blood Loss -50.0 Urine Output -325.0 Drains No Packing No Pathology None sent Complications None Condition Stable Disposition PACU [facility] Billing Surgery - Charge Forward: Surgery Billing ([id number])
[2023-01-31] MEDS: FUROSEMIDE 40 MG TABLET PO (17:11)
[2023-01-31] MEDS: SENNA/DOCUSATE SODIUM TABLET 2 TAB PO (17:11)
--- NOTE | 2023-01-31 19:25 | PC.NURSE ---
On 01/31/23, the ARCHIVIST POLITICAL HISTORY, Reta Munoz, provided care and completed [facility]le[facility] documentation on this patient. I have reviewed the ARCHIVIST POLITICAL HISTORY's documentation and agree with the findings.
[2023-01-31] MEDS: ceFAZolin 1 GM/NS 50 ML 1 GM/50 ML BAG IVPB (20:06)
[2023-01-31] MEDS: SODIUM CHLORIDE 0.9% IV 1,000 ML 75 ML IV CONT (20:06)
--- NOTE | 2023-01-31 20:08 | PC.NURSE ---
Pt arrived to the unit post op and was reporting no pain. Pt resting comfortably in bed. Pt tolerating diet and was able to take medication. Pt has family at bedside. Pt monitored for any changes in status. Report given to broth mixer nurse.
[2023-02-01 00:25] VITALS: BP 103/61; PULSE 85; RESP 16; TEMP 36.2; O2SAT 97
[2023-02-01] MEDS: TIZANIDINE HCL 2 MG TABLET PO (01:33)
[2023-02-01] MEDS: ceFAZolin 1 GM/NS 50 ML 1 GM/50 ML BAG IVPB ×2 (03:53→11:34)
[2023-02-01 05:23] VITALS: BP 99/63; PULSE 73; RESP 16; TEMP 36.2; O2SAT 100
[2023-02-01 06:30] LABS: Basophils Percent Auto 0.1 % (0.2-1.2); Hematocrit 28.3 % (37.0-47.0); Hemoglobin 9.1 g/dL (12.0-15.0); Immature Granulocyte Absolute 0.08 K/mm3 (0.00-0.031); Immature Granulocyte Percent A 0.5 % (0-0.5); Immature Platelet Fraction Pct 4.8 % (0.9-11.2); Lymphocytes Absolute Auto 0.88 K/mm3 (0.9-3.2); Mean Corpuscular HGB Conc 32.2 g/dl (32-36); Mean Corpuscular Hemoglobin 31.9 pg (26-34); Mean Corpuscular Volume 99.3 fl (80-100); Mean Platelet Volume 10.8 fl (7.4-10.4); Monocytes Absolute Auto 0.9 K/mm3 (0.1-0.6); Neutrophils Absolute Auto 12.7 K/mm3 (1.3-6.7); Neutrophils Percent Auto 87.4 % (45.5-73.1); Platelet Count Result 91 k/mm3 (150-375); Red Blood Count 2.85 M/mm3 (4.2-5.4); Red Cell Distribution Width 13.6 % (11.5-14.5); White Blood Count 14.6 K/mm3 (4.5-10.0)
[2023-02-01 06:42] LABS: Anion Gap 7 mmol/L (8-16); Blood Urea Nitrogen 36 mg/dL (7-17); Calcium 8.3 mg/dL (8.4-10.2); Carbon Dioxide 23 mmol/L (22-30); Chloride 105 mmol/L (98-107); Estimated Glomerular Filt Rate 43; Glucose 127 mg/dL (65-110); Sodium 135 mmol/L (137-145)
[2023-02-01 07:30] LABS: Ovalocytes 1+ (NORMAL)
[2023-02-01 07:31] LABS: Anisocytosis 1+ (NORMAL); Schistocytes None Seen (NORMAL)
--- NOTE | 2023-02-01 08:21 | PM.IMPN ---
Progress Note: A&P Assessment and Plan (1) Closed intertrochanteric fracture of left femur: Qualifiers: Encounter type: initial encounter Fracture alignment: displaced Qualified Code(s): S72.142A - Displaced intertrochanteric fracture of left femur, initial encounter for closed fracture Code(s): S72.142A - Displaced intertrochanteric fracture of left femur, initial encounter for closed fracture Status: Acute Assessment and Plan: 01/30/[address] showed left inter trochanteric fracture Ortho consulted, to have surgical repair tomorrow at 12 continue pain control 01/31/23: S/P Trochanteric nail fixation of left hip intertrochanteric fracture. Continue pain control PT and OT ordered for tomorrow, will likely need rehab placement Orthopedics following 02/01/23: Post op day 1 from a trochanteric nail fixation of the left hip intertrochanteric fracture. Continue pain control PT and OT to eval and treat today Orthopedic surgery following Will touch base with case management for outpatient rehab needs. reporting a sore throat today and difficulty swallowing, will start throat lozengers and will get speech therapy to see for bedside swallow study Reporting restless legs, will order Requip for tonight. Plan to discontinue garcia in the morning (2) Elevated creatine kinase: Code(s): R74.8 - Abnormal levels of other serum enzymes Status: Acute Assessment and Plan: 01/30/23: CK was a bit elevated but likely due to being on the ground for 45 minutes post fall. Repeat CK level in a.m 01/31/23: Total CK 137 02/01/23: Trending down as of yesterday. (3) Chronic kidney disease, stage 3: Code(s): N18.30 - Chronic kidney disease, stage 3 unspecified Status: Chronic Assessment and Plan: 01/30/23: chronic kidney disease stage 3 and her creatinine today is 1.10. continue to monitor 01/31/23: BUN 28, creatinine 1.0 Continue to monitor 02/01/23: BUN 36, Creatinine 1.20 continue to trend labs Time Spent With Patient Time with patient: 25 - 35 minutes Subjective Date/time seen: 02/01/23 08:21 Interval history: 01/31/23: This is an 82 year old female who presented to the hospital after sustaining a fall from a 6 foot ladder. Patient was on the 4th rung when she lost her footing falling on her left side. She had immediate pain in the left hip and upper leg. Work up in the hospital includes a head CT which was negative for any acute intracranial abnormality; CT of the C-spine was negative for any acute abnormality; probable nondisplaced left femoral intertrochanteric fracture; left femur x-ray shown probable nondisplaced left femoral intertrochanteric fracture; chest x-ray which did not reveal any acute cardiopulmonary disease; Left hip CT which revealed mild displaced left femoral intertrochanteric fracture. Orthopedics was consulted. UA was negative for bacteria. Total CK 270, BUN 40, Creatinine 1.20 On examination today patient is alert and oriented x4, lying in the bed. She denies any pain at this time. S/P ORIF of left hip fracture. Currently has an ice bag to her left hip with two small incisions present that are well approximated. VSS, she is on room air, she remains afebrile. She denies any nausea, vomiting, diarrhea, shortness of breath, chest pain, or abdominal pain. Labs today revealed WBC 9.7, Hgb 10., Hct 30.4,Na+ 138, K+ 3.7, Chloride 105, BUN 28, Creatinine 1.0, Ca+ 8.3, Total CK 137. 02/01/23: On examination today patient is alert oriented x4, sitting in the chair. Vital signs are stable, she remains on room air, she is afebrile. She states that she is not experiencing much pain in the left hip. She has been working with physical therapy and occupational therapy. She denies any fever, chills, nausea, vomiting, diarrhea, abdominal pain, chest pain, shortness of breath. She does report restless leg syndrome and I ordered Requip for her
--- NOTE | 2023-02-01 09:18 | PM.PNORT ---
Progress Note: A&P Assessment and Plan (1) Closed intertrochanteric fracture of left femur: Qualifiers: Encounter type: initial encounter Fracture alignment: displaced Qualified Code(s): S72.142A - Displaced intertrochanteric fracture of left femur, initial encounter for closed fracture <Kelli Hernandez BUSINESS SERVICES ASSISTANT - Last Filed: 02/01/23 09:54> Code(s): S72.142A - Displaced intertrochanteric fracture of left femur, initial encounter for closed fracture <Kellisa Abelino Hernandez BUSINESS SERVICES ASSISTANT - Last Filed: 02/01/23 09:54> Status: Acute <Kellisa Abelino Hernandez BUSINESS SERVICES ASSISTANT - Last Filed: 02/01/23 09:54> Assessment and Plan: POD #1 : Trochanteric nail fixation left hip intertrochanteric fracture Continue PT/OT. WBAT. Walker. HIGH FALL RISK. Continue pain control. Ice Hip. Protect skin. DVT prophylaxis with Arixtra. SCDs. Incentive Spirometry Use reviewed. Monitor Incisions. Dermabond in place. Bowel Regimen. Dispo: SCOTT pending progress with PT/OT <Kelli Hernandez, BUSINESS SERVICES ASSISTANT - Last Filed: 02/01/23 09:54> POD #1 : Trochanteric nail fixation left hip intertrochanteric fracture Continue PT/OT. WBAT. Walker. HIGH FALL RISK. Continue pain control. Ice Hip. Protect skin. DVT prophylaxis with Arixtra. SCDs. Incentive Spirometry Use reviewed. Monitor Incisions. Dermabond in place. Bowel Regimen. Dispo: SCOTT pending progress with PT/OT Plan switch from Arixtra to aspirin for DVT prophylaxis at discharge. <Matty Markham MD - Last Filed: 02/01/23 11:03> (2) Dysphagia: Qualifiers: Dysphagia type: unspecified Qualified Code(s): R13.10 - Dysphagia, unspecified <Kelli Hernandez BUSINESS SERVICES ASSISTANT - Last Filed: 02/01/23 09:54> Code(s): R13.10 - Dysphagia, unspecified <Kellisa Abelino Hernandez BUSINESS SERVICES ASSISTANT - Last Filed: 02/01/23 09:54> Status: Acute <Kelli Hernandez BUSINESS SERVICES ASSISTANT - Last Filed: 02/01/23 09:54> Assessment and Plan: Patient reports difficulty with swallowing s/p anesthesia. Appreciate hospitalist recommendations. Swallow study to be initiated. <RODERICK Metcalf - Last Filed: 02/01/23 09:54> Assessment and Plan: Reviewed postoperative exam, labs, vitals with attending MD, Dr. Markham, who agrees with plans as indicated above. No further recommendations at this time. <RODERICK Metcalf - Last Filed: 02/01/23 09:54> Subjective Subjective Date/Time Seen: 02/01/23 09:18 <RODERICK Metcalf - Last Filed: 02/01/23 09:54> Post Op day: 1 <RODERICK Metcalf - Last Filed: 02/01/23 09:54> Interval history: POD #1: Trochanteric nail fixation left hip intertrochanteric fracture Pain well controlled. Concerns about difficulty with swallowing s/p anesthesia. No difficulties preoperatively. <RODERICK Metcalf - Last Filed: 02/01/23 09:54> Review of Systems Constitutional: Constitutional: Denies chills, Denies fatigue, Denies fever(s), Denies night sweats and Denies weakness <RODERICK Metcalf - Last Filed: 02/01/23 09:54> Cardiovascular: Cardiovascular: Denies chest pain, Denies lightheadedness, Denies palpitations and Denies dyspnea <RODERICK Metcalf - Last Filed: 02/01/23 09:54> Respiratory: Respiratory: Denies cough, Denies dyspnea and Denies wheezing <RODERICK Metcalf - Last Filed: 02/01/23 09:54> Gastrointestinal: Gastrointestinal: Denies abdominal pain, Reports dysphagia, Denies diarrhea, Denies nausea and Denies vomiting <RODERICK Metcalf - Last Filed: 02/01/23 09:54> Musculoskeletal: Musculoskeletal: Reports arthralgias (left hip ), Reports joint swelling (left hip ) and Denies numbness <RODERICK Metcalf - Last Filed: 02/01/23 09:54> Neurologic: Denies numbness and Denies weakness <RODERICK Metcalf - Last Filed: 02/01/23 09:54> Endocrine: Endocrine: Denies fatigue and Denies palpitations <RODERICK Metcalf - Last Filed: 02/01/23 09:54> Allergic/Immunologic: Allergic/Immunologic: Denies wheezing <KIRIT Metcalf
[2023-02-01] MEDS: LOSARTAN POTASSIUM 25 MG TABLET PO (09:32)
[2023-02-01] MEDS: allopurinoL 100 MG TABLET PO (09:32)
[2023-02-01] MEDS: SENNA/DOCUSATE SODIUM TABLET 2 TAB PO ×2 (09:32→17:26)
[2023-02-01] MEDS: traMADol HCL (*CRX) 25 MG TABLET PO (09:32)
[2023-02-01] MEDS: PANTOPRAZOLE 40 MG TABLET PO (09:33)
[2023-02-01] MEDS: polyethylene glycoL 3350 17 GM POWD.PACK PO (09:33)
[2023-02-01] MEDS: FUROSEMIDE 40 MG TABLET PO ×2 (09:33→17:26)
[2023-02-01 12:22] VITALS: BP 108/58; PULSE 78; RESP 16; TEMP 36.2; O2SAT 99
--- NOTE | 2023-02-01 15:36 | PCSTNOTE ---
Bedside swallowing evaluation completed. Patient reportedly coughed when drinking water earlier today. She was recently intubated during hip surgery and states that her throat is sore. She states that she has no difficulty swallowing other than throat pain. Cursory oral peripheral examination results within normal limits. Patient reports that she ate chicken noodle soup for lunch and drank water with no difficulty and that she has lozenges for throat pain which are helping. Trials of water were given by straw in uncontrolled amounts. No signs of aspiration or any other swallowing difficulty occurred. Patient accepted one bite of chilled applesauce but refused to trial other food textures due to sore throat. Again, swallowing of pureed consistency was within normal limits. Recommend thin liquids and pureed consistency food and advance diet as tolerated by patient's pain threshold for sore throat. No further speech therapy is recommended. Please note that silent aspiration cannot be ruled out at bedside and can be evaluated with a modified barium swallow study. Thank you for the referral of this patient.
[2023-02-01 16:34] VITALS: BP 110/62; PULSE 80; TEMP 36.6; O2SAT 100
--- NOTE | 2023-02-01 19:36 | PC.NURSE ---
Reta Munoz provided care for this patient on 02/01/23. I have reviewed her assessments and agree with her charting
[2023-02-01] MEDS: rOPINIRole HCL 0.125 MG TABLET PO (20:01)
[2023-02-01 20:05] VITALS: O2SAT 99
[2023-02-01 23:25] VITALS: BP 131/65; PULSE 92; RESP 18; TEMP 36.7; O2SAT 99
[2023-02-02 06:49] VITALS: BP 137/72; PULSE 88; RESP 16; TEMP 36.7; O2SAT 98
[2023-02-02 06:59] LABS: Hemoglobin 9.3 g/dL (12.0-15.0); Immature Platelet Fraction Pct 4.1 % (0.9-11.2); Mean Corpuscular HGB Conc 33.2 g/dl (32-36); Mean Corpuscular Hemoglobin 32.6 pg (26-34); Mean Corpuscular Volume 98.2 fl (80-100); Mean Platelet Volume 10.8 fl (7.4-10.4); Platelet Count Result 122 k/mm3 (150-375); Red Blood Count 2.85 M/mm3 (4.2-5.4); Red Cell Distribution Width 13.7 % (11.5-14.5); White Blood Count 11.8 K/mm3 (4.5-10.0)
[2023-02-02 07:10] LABS: Alanine Aminotransferase 19 U/L (6-35); Albumin Level 2.9 g/dL (3.5-5.1); Alkaline Phosphatase 61 U/L (38-126); Anion Gap 8 mmol/L (8-16); Aspartate Amino Transferase 47 U/L (14-36); Bilirubin,Total 0.7 mg/dL (0.2-1.3); Blood Urea Nitrogen 39 mg/dL (7-17); Calcium 8.1 mg/dL (8.4-10.2); Carbon Dioxide 27 mmol/L (22-30); Chloride 102 mmol/L (98-107); Estimated Glomerular Filt Rate 39; Glucose 100 mg/dL (65-110); Potassium 3.7 mmol/L (3.4-5.0); Sodium 137 mmol/L (137-145)
[2023-02-02] MEDS: FUROSEMIDE 40 MG TABLET PO (08:15)
[2023-02-02] MEDS: allopurinoL 100 MG TABLET PO (08:15)
[2023-02-02] MEDS: SENNA/DOCUSATE SODIUM TABLET 2 TAB PO (08:15)
[2023-02-02] MEDS: LOSARTAN POTASSIUM 25 MG TABLET PO (08:15)
[2023-02-02] MEDS: FONDAPARINUX SODIUM 2.5 MG/0.5 ML SYRINGE SUB-Q (08:15)
[2023-02-02] MEDS: PANTOPRAZOLE 40 MG TABLET PO (08:15)
[2023-02-02] MEDS: polyethylene glycoL 3350 17 GM POWD.PACK PO (08:16)
--- NOTE | 2023-02-02 09:27 | PM.DS ---
DS: Admitting Diagnosis Discharge Date 02/02/23 Admitting Diagnosis Closed intertrochanteric fracture of left femur Fall from ladder Elevated creatinine kinase Chronic kidney disease, stage 3 Hypertension Hyperlipidemia Normocytic anemia DS: Discharge Diagnosis Discharge Diagnosis (1) Closed intertrochanteric fracture of left femur: Qualifiers: Encounter type: initial encounter Fracture alignment: displaced Qualified Code(s): S72.142A - Displaced intertrochanteric fracture of left femur, initial encounter for closed fracture Code(s): S72.142A - Displaced intertrochanteric fracture of left femur, initial encounter for closed fracture Status: Acute (2) Elevated creatine kinase: Code(s): R74.8 - Abnormal levels of other serum enzymes Status: Acute (3) Chronic kidney disease, stage 3: Code(s): N18.30 - Chronic kidney disease, stage 3 unspecified Status: Chronic DS: Summary Hospital Course Reason for hospitalization: Displaced intertrochanteric fracture of left femur Fall Hospital Course: This is an 82 year old female who presented to the hospital after sustaining a fall from a 6 foot ladder. Patient was on the 4th rung when she lost her footing falling on her left side. She had immediate pain in the left hip and upper leg. Work up in the hospital includes a head CT which was negative for any acute intracranial abnormality; CT of the C-spine was negative for any acute abnormality; probable nondisplaced left femoral intertrochanteric fracture; left femur x-ray shown probable nondisplaced left femoral intertrochanteric fracture;? chest x-ray which did not reveal any acute cardiopulmonary disease; Left hip CT which revealed mild displaced left femoral intertrochanteric fracture. Orthopedics was consulted. UA was negative for bacteria. Total CK 270, BUN 40, Creatinine 1.20. Patient was taken to the OR on 01/31/23 with Ortho and had a trochanteric nail fixation of left hip intertrochanteric fracture. PT and OT evaluated patient. Case management set patient up with SNF for outpatient rehab needs. She did have some post op trouble swallowing and had a bedside swallow study done which did not show any signs of aspiration or trouble with swallowing Patient did have a sore throat likely due to breathing tube during surgery. On examination today patient states that the sore throat is resolved. She denies any pain at this time. VSS, she is afebrile, currently on room air. Labs today shown WBC 11.8, Hgb 9.3, Hct 28.0, Plt 122, BUN 39, Creatinine 1.30, Ca+ 8.1. Patient is stable for discharge to SNF at this time. She will need to continue aspirin only for DVT prophylaxis as she recovers. She will follow up with ortho in 2 weeks and primary care within 1 week. Final diagnosis: Nondisplaced left femoral intertrochanteric fracture Procedure: Trochanteric nail fixation of left hip intertrochanteric fracture. Status at Discharge Cognitive/behavioral status at discharge: Alert and oriented x4 Functional status at discharge: uses cane/walker Overall status at discharge: patient is not back to baseline Time Spent with Patient Time attestation: Total time spent providing and/or coordinating discharge services: Time spent: Greater than 30 minutes Exam Narrative: General: In no acute distress, well nourished Head: atraumatic, no encephalopathy Eyes: EOMI, PERRLA, sclera clear ENT: mucous membranes tachy, reports sore throat today and difficulty swallowing Neck: supple, no JVD, no adenopathy, trachea midline Cardiac: Normal S1 and S2. No murmur, gallops or friction rubs, peripheral pulses intact. Respiratory: Lungs clear to auscultation, no adventitious lung sounds Gastrointestinal: soft, non-distended, non-tender, hypoactive bowel sounds. : voiding without difficulty. Extremities: Limited ROM of left hip, Moves all other extremities well Skin: Left hip two incisions open to air, well approximated. Neuro: Alert
--- NOTE | 2023-02-02 09:46 | PM.PNORT ---
Progress Note: A&P Assessment and Plan (1) Closed intertrochanteric fracture of left femur: Qualifiers: Encounter type: initial encounter Fracture alignment: displaced Qualified Code(s): S72.142A - Displaced intertrochanteric fracture of left femur, initial encounter for closed fracture <Kellisa Abelino Hernandez TIME PIECE REPAIRER - Last Filed: 02/02/23 09:53> Code(s): S72.142A - Displaced intertrochanteric fracture of left femur, initial encounter for closed fracture <Kellisa Abelino Hernandez, TIME PIECE REPAIRER - Last Filed: 02/02/23 09:53> Status: Acute <Kellisa Abelino Hernandez, TIME PIECE REPAIRER - Last Filed: 02/02/23 09:53> Assessment and Plan: POD #2: Trochanteric nail fixation left hip intertrochanteric fracture Continue PT/OT. WBAT. Walker. HIGH FALL RISK. Continue pain control. Ice Hip. Protect skin. DVT prophylaxis with Arixtra. SCDs. Incentive Spirometry Use reviewed. Monitor Incisions. Dermabond in place. Bowel Regimen. Dispo: SCOTT pending progress with PT/OT Plan switch from Arixtra to aspirin for DVT prophylaxis at discharge. <Kellisa Abelino Hernandez, TIME PIECE REPAIRER - Last Filed: 02/02/23 09:53> (2) Dysphagia: Qualifiers: Dysphagia type: unspecified Qualified Code(s): R13.10 - Dysphagia, unspecified <Kellisa Abelnio Hernandez, TIME PIECE REPAIRER - Last Filed: 02/02/23 09:53> Code(s): R13.10 - Dysphagia, unspecified <Kelli Abelino Hernandez TIME PIECE REPAIRER - Last Filed: 02/02/23 09:53> Status: Acute <Kelli Abelino Hernandez, TIME PIECE REPAIRER - Last Filed: 02/02/23 09:53> Assessment and Plan: Resolved <Kellisa Abelino Hernandez TIME PIECE REPAIRER - Last Filed: 02/02/23 09:53> (3) Fall from ladder: Qualifiers: Encounter type: initial encounter Qualified Code(s): W11.XXXA - Fall on and from ladder, initial encounter <Kellisa Abelino Hernandez TIME PIECE REPAIRER - Last Filed: 02/02/23 09:53> Code(s): W11.XXXA - Fall on and from ladder, initial encounter <RODERICK Metcalf - Last Filed: 02/02/23 09:53> Status: Acute <RODERICK Metcalf - Last Filed: 02/02/23 09:53> Assessment and Plan: Patient seen and examined with orthopedic team. Reviewed operative findings and treatment with the patient, , daughter in the room. Up in chair at this time tolerating diet. Pain controlled. Agree with plan. <Matty Markham MD - Last Filed: 02/02/23 10:23> Assessment and Plan: Reviewed postoperative exam, labs, vitals with attending MD, Dr. Markham, who agrees with plans as indicated above. No further recommendations at this time. <RODERICK Metcalf - Last Filed: 02/02/23 09:53> Subjective Subjective Date/Time Seen: 02/02/23 09:46 <RODERICK Metcalf - Last Filed: 02/02/23 09:53> Post Op day: 2 <RODERICK Metcalf - Last Filed: 02/02/23 09:53> Interval history: POD #2: Trochanteric nail fixation left hip intertrochanteric fracture Pain well controlled. Sitting up eating in the chair. No longer having difficulty with swallowing. <RODERICK Metcalf - Last Filed: 02/02/23 09:53> Review of Systems Constitutional: Constitutional: Denies chills, Denies fatigue, Denies fever(s), Denies night sweats and Denies weakness <RODERICK Metcalf - Last Filed: 02/02/23 09:53> Cardiovascular: Cardiovascular: Denies chest pain, Denies lightheadedness, Denies palpitations and Denies dyspnea <RODERICK Metcalf - Last Filed: 02/02/23 09:53> Respiratory: Respiratory: Denies cough, Denies dyspnea and Denies wheezing <RODERICK Metcalf - Last Filed: 02/02/23 09:53> Gastrointestinal: Gastrointestinal: Denies abdominal pain, Reports dysphagia, Denies diarrhea, Denies nausea and Denies vomiting <RODERICK Metcalf - Last Filed: 02/02/23 09:53> Musculoskeletal: Musculoskeletal: Reports arthralgias (left hip ), Reports joint swelling (left hip ) and Denies numbness <RODERICK Metcalf - Last Filed: 02/02/23 09:53> Neurologic: Denies numbness and Denies weakness <RODERICK Metcalf - Last Filed: 02/02/23 09:53> Endocrin
[2023-02-02] MEDS: traMADol HCL (*CRX) 25 MG TABLET PO (11:17)
== END 2023-02-02 12:41 | DRG 482 ==
LOC: ANHED 14:43 → ANH3MEDSUR 15:04
PROVIDERS: Nurse Practitioner; Orthopaedic Surgery; Physician Assistant; Admitting Provider Internal Medicine; Emergency Provider Student in an Organized Health Care Education/Training Program; PCP Internal Medicine; Visit Provider Nurse Practitioner Acute Care
PROC: 0QS736Z Reposition Left Upper Femur with Intramedullary Internal Fixation Device, Percutaneous Approach (ICD-10-PCS; CPT 27245; principal; 2023-01-31 12:00)
DX: S72.142A Displaced intertrochanteric fracture of left femur, initial encounter for closed fracture (principal); E78.5 Hyperlipidemia, unspecified; D63.1 Anemia in chronic kidney disease; R13.10 Dysphagia, unspecified; I12.9 Hypertensive chronic kidney disease with stage 1 through stage 4 chronic kidney disease, or unspecified chronic kidney disease; K21.9 Gastro-esophageal reflux disease without esophagitis; M85.80 Other specified disorders of bone density and structure, unspecified site; N18.30 Chronic kidney disease, stage 3 unspecified; R74.8 Abnormal levels of other serum enzymes; W11.XXXA Fall on and from ladder, initial encounter; Z90.710 Acquired absence of both cervix and uterus
CPT/HCPCS: 36415; 70450; 71046; 72125; 73502; 73552; 73700; 80048; 80053; 81003; 82550; 83735; 85025; 85027; 85055; 85610; 85730; 92610; 93005; 96374; 96375; 97110; 97116; 97161; 97166; 97530; 97535; 99199; 99285; A9270; C1713; J0690; J1100; J1652; J1885; J2270; J2405; J2704; J3010; J7030; J7120

== ENCOUNTER 2023-03-30 08:59 | Outpatient (CLI) | payer MEDICARE, OTHER, SELFPAY ==
--- NOTE | ~2023-03-30 | US_ITS ---
EXAMINATION:US venous doppler LE BI INDICATION:Prior left hip fracture. Status post surgery. Swelling. TECHNIQUE: Multiple grayscale, color flow and Doppler images of the right and left lower extremity de ep venous systems were obtained and reviewed. COMPARISON:No prior studies for comparison. FINDINGS: The common femoral, superficial femoral and popliteal veins demonstrate normal respiratory variation, augmentation and compressibility. Color flow is also seen within the posterior tibial, pe roneal, greater saphenous and profunda veins. IMPRESSION: 1: No lower extremity deep venous thrombosis. Reviewed, dictated and finalized at location B. JAVASCRIPT DEVELOPER
== END 2023-03-30 09:00 | disposition home or self-care (01) ==
LOC: ANHIMG 09:00
PROVIDERS: PCP Pain Medicine Pain Medicine; Visit Provider Orthopaedic Surgery
DX: M79.89 Other specified soft tissue disorders (principal); I82.409 Acute embolism and thrombosis of unspecified deep veins of unspecified lower extremity
CPT/HCPCS: 93970

== ENCOUNTER 2023-07-20 14:16 | Outpatient (CLI) | payer MEDICARE, OTHER, SELFPAY ==
[2023-07-20 14:56] LABS: Basophils Percent Auto 0.6 % (0.2-1.2); Eosinophils Absolute Auto 0.3 K/mm3 (0-0.3); Eosinophils Percent Auto 4.6 % (0-4.4); Hematocrit 31.8 % (37.0-47.0); Hemoglobin 10.6 g/dL (12.0-15.0); Immature Granulocyte Absolute 0.03 K/mm3 (0.00-0.031); Immature Granulocyte Percent A 0.4 % (0-0.5); Lymphocytes Absolute Auto 1.96 K/mm3 (0.9-3.2); Lymphocytes Percent Auto 28.4 % (18.3-44.2); Mean Corpuscular HGB Conc 33.3 g/dl (32-36); Mean Corpuscular Hemoglobin 31.5 pg (26-34); Mean Corpuscular Volume 94.6 fl (80-100); Mean Platelet Volume 10.4 fl (7.4-10.4); Monocytes Absolute Auto 0.6 K/mm3 (0.1-0.6); Monocytes Percent Auto 8.1 % (2.6-8.5); Neutrophils Percent Auto 57.9 % (45.5-73.1); Platelet Count Result 133 k/mm3 (150-375); Red Blood Count 3.36 M/mm3 (4.2-5.4); Red Cell Distribution Width 14.5 % (11.5-14.5); White Blood Count 6.9 K/mm3 (4.5-10.0)
[2023-07-20 15:14] LABS: Alanine Aminotransferase 30 U/L (6-35); Albumin Level 4.2 g/dL (3.5-5.1); Alkaline Phosphatase 83 U/L (38-126); Anion Gap 6 mmol/L (4-12); Aspartate Amino Transferase 41 U/L (14-36); Bilirubin,Total 0.8 mg/dL (0.2-1.3); Blood Urea Nitrogen 36 mg/dL (7-17); Calcium 9.1 mg/dL (8.4-10.2); Carbon Dioxide 25 mmol/L (22-30); Chloride 104 mmol/L (98-107); Estimated Glomerular Filt Rate 43; Glucose 107 mg/dL (65-110); Potassium 3.9 mmol/L (3.4-5.0); Sodium 135 mmol/L (137-145); Uric Acid 5.3 mg/dL (2.5-7.5)
== END 2023-07-20 14:17 | disposition home or self-care (01) ==
PROVIDERS: PCP Family Medicine; Visit Provider Family Medicine
DX: E03.9 Hypothyroidism, unspecified (principal); I10 Essential (primary) hypertension; E79.0 Hyperuricemia without signs of inflammatory arthritis and tophaceous disease; D50.0 Iron deficiency anemia secondary to blood loss (chronic)
CPT/HCPCS: 36415; 80053; 82607; 84443; 84550; 85025

== ENCOUNTER 2023-08-14 08:45 | Outpatient (RCR) | payer MEDICARE, OTHER, SELFPAY ==
--- NOTE | 2023-06-04 09:01 | OPREHPOC ---
Outpatient Therapy Plan of Care This is a Multidisciplinary Plan of Care that may contain components documented by all disciplines (PT, OT, and ST.) PT Problem 1 PT Problem #1 Knowledge Deficit PT Goal 1 Goal 1. Patient will perform independent HEP Target Visit 4 PT Problem 2 PT Problem #2 Pain PT Goal 1 Goal 1. Patient will report no pain with all ADLs Target Visit 10 PT Problem 3 PT Problem #3 Impaired Strength PT Goal 1 Goal 1. Improve LE strength to 4+/5 in all planes eagle Target Visit 10 PT Problem 4 PT Problem #4 Impaired Balance PT Goal 1 Goal 1. Improve single limb stance to 10 seconds each to improve support with single limb activities like gait Target Visit 10 PT Problem 5 PT Problem #5 Impaired Gait PT Goal 1 Goal 1. Patient able to ambulate at least 250 feet on the 2 minute walk test without a walker Target Visit 10
--- NOTE | 2023-06-04 09:01 | PTOPEVAL1 ---
Assessment and note entered by Jesenia Chavez DPT Evaluation Information Assessment Status Evaluation Subjective Information Pt reports she fractured her L hip the week before . Fell off a ladder in her garage. She had surgery (Dr. Markham) the next day and then had therapy in the hospital for a week. Had home health therapy for about a month. States she has had no therapy since home health discharged her at the end of March. Highest pain 3-4/10 and lowest 0/10. Is using a walker now, did not use one prior to her fall. Is doing some cooking and cleaning but not what she would normally be doing. Dressing and bathing independently and is able to drive. Patient has 1 step in to her living room, has stairs to the basement but does not use them. Patient goal: walk without a walker Sees Dr. Markham in July, returns to PCP in July as well. Pt has osteoporosis Reported Pain Level Pain Score 0: Self Report Assessment PT Clinical Summary The patient is presenting to skilled therapy following a L hip fracture and surgery in February 2023. She presents with decreased gait, balance, and LE strength contributing to her current walker use and pain and difficulty performing normal cooking and cleaning tasks. She will highly benefit from therapy to address her impairments in order to reduce pain and improve overall function . Plan of Care Interventions Electrical Stimulation,Gait Training,Hot Pack/Cold Pack,Manual Therapy,Neuro Re-education,Patient/ Caregiver Education,Therapeutic Activities, Therapeutic Exercise PT Services Indicated Yes Treatment Frequency and 2 times a week for 10 visits Duration These treatments will address the objective and functional deficits as defined above. The patient will be advanced safely and appropriately in order for the patient to progress towards his/her prior level of function. Additional exercises will be introduced and as well as a comprehensive home exercise program upon discharge, if needed, ?to ensure carryover of functional gains achieved in the clinic. This treatment plan has been reviewed and agreement upon by the patient.
--- NOTE | 2023-07-12 14:19 | OPREHPOC ---
Outpatient Therapy Plan of Care This is a Multidisciplinary Plan of Care that may contain components documented by all disciplines (PT, OT, and ST.) PT Problem 1 PT Problem #1 Knowledge Deficit PT Goal 1 Goal 1. Patient will perform independent HEP Target Visit 4 Progress Met PT Problem 2 PT Problem #2 Pain PT Goal 1 Goal 1. Patient will report no pain with all ADLs Target Visit 18 Progress Partially Met PT Problem 3 PT Problem #3 Impaired Strength PT Goal 1 Goal 1. Improve LE strength to 4+/5 in all planes eagle Target Visit 18 Progress Partially Met PT Problem 4 PT Problem #4 Impaired Balance PT Goal 1 Goal 1. Improve single limb stance to 10 seconds each to improve support with single limb activities like gait Target Visit 18 Progress Not Met PT Problem 5 PT Problem #5 Impaired Gait PT Goal 1 Goal 1. Patient able to ambulate at least 250 feet on the 2 minute walk test without a walker Target Visit 18 Progress Partially Met
--- NOTE | 2023-07-12 14:19 | PTOPPROG ---
Assessment and note entered by Jesenia Chavez DPT Evaluation Information Assessment Status Progress Subjective Information Pt feels much better than when she started therapy. States she is able to get out and about like she did previously and is now using a cane instead of a walker. Highest pain in last week 5/ 10 and lowest 0/10. Returns to MD at the end of the month. Prior to fall and surgery patient did not use a cane most of the time. Assessment PT Clinical Summary The patient has made good progress in therapy and reports overall decreased pain and improved function with activities like cooking and cleaning . She is now walking with a cane and she demonstrates improved LE strength and ability to navigate stairs. She continues to display gait impairments and will benefit from further therapy to address strength, gait, and balance in order to return to prior level of function. Plan of Care Interventions Electrical Stimulation,Gait Training,Hot Pack/Cold Pack,Manual Therapy,Neuro Re-education,Patient/ Caregiver Education,Therapeutic Activities, Therapeutic Exercise PT Services Indicated Yes Treatment Frequency and 2 times a week for 8 visits Duration These treatments will address the objective and functional deficits as defined above. The patient will be advanced safely and appropriately in order for the patient to progress towards his/her prior level of function. Additional exercises will be introduced and as well as a comprehensive home exercise program upon discharge, if needed, ?to ensure carryover of functional gains achieved in the clinic. This treatment plan has been reviewed and agreement upon by the patient.
--- NOTE | 2023-07-26 10:46 | PCPTNOTE ---
Patient no show, left voice mail.
--- NOTE | 2023-08-16 08:50 | PCPTNOTE ---
The patient did not show for her scheduled appointment on this date. Prince Palm, MPT
--- NOTE | 2023-08-22 11:35 | PCPTNOTE ---
This treatment is being continued on visit number [id number]. Please see documentation on both accounts to view progress. Completed interventions, outcomes, and problems have been marked as Inactive to facilitate the copying of the Care plan routine for recurring accounts.
== END 2023-08-22 10:36 | disposition home or self-care (01) ==
LOC: ANHPT 08:45
PROVIDERS: PCP Family Medicine; Visit Provider Family Medicine
DX: R26.9 Unspecified abnormalities of gait and mobility (principal); R26.89 Other abnormalities of gait and mobility
CPT/HCPCS: 97014; 97110; 97112; 97116; 97140; 97161; 97530; 97750; 99199; G0283

== ENCOUNTER 2023-09-04 10:14 | Outpatient (RCR) | payer MEDICARE, OTHER, SELFPAY ==
--- NOTE | 2023-08-22 11:36 | PCPTNOTE ---
This treatment is being continued from visit number [id number] . Please see documentation on both accounts to view progress. Completed interventions, outcomes, and problems have been marked as Inactive to facilitate the copying of the Care plan routine for recurring accounts.
--- NOTE | 2023-09-04 11:36 | PTOPDC ---
Assessment and note entered by Charla De La Vega, PT Discharge Report Assessment Status Discharge Subjective Information still have spasms and pain in R leg- thigh; have been doing more, active and doing yard work now; is able to do all of her usual home chores; use the cane 90% of the time, balance still a problem; sometimes in the house lose her cane and have to find it; am still doing the exercises at home; in the past week have had dizzy spells, think because dehyrated from lasix that take 2x day; have been going to her basement with the railing; Reported Pain Level Pain Score Self Report Additional Pain Score Comments no pain in legs or back right now, with sitting down; when stand up- back hurts 4/10; have spasms in R thigh - more with sitting about 1 hour. Assessment PT Clinical Summary Ally has received 18 PT sessions. She did not show for 2 appointments. Compared to the last progress report: pain in her legs has decreased, but continues to have low back pain 0-4/10; increase strength of R and L LE 2 minute walking test distance is within 10'; is using the small base quad cane for walking, and uses the walker for walking in the grass outside; education completed for HEP. The goals were partially met. Discharge PT services. She is to continue with her HEP and walking as tolerated, with limitation of back pain. Plan of Care PT Services Indicated No
== END 2023-09-04 14:03 | disposition home or self-care (01) ==
LOC: ANHPT 10:14
PROVIDERS: PCP Family Medicine; Visit Provider Family Medicine
DX: R26.9 Unspecified abnormalities of gait and mobility (principal); R26.89 Other abnormalities of gait and mobility
CPT/HCPCS: 97110; 97530

== ENCOUNTER 2023-12-17 10:44 | Emergency (ER) | payer MEDICARE, OTHER, SELFPAY ==
--- NOTE | ~2023-12-17 | XR_ITS ---
EXAMINATION: XR ribs LT 2V w CXR 2V DATE: 12/17/2023 11:22 INDICATION: Posterior lateral left rib pain post fall TECHNIQUE: PA and lateral of the chest and 4 views of the left ribs were obtained. COMPARISON: Chest radiograph dated 01/29/2023 FINDINGS: There is some callus formation associated with likely subacute or chronic fracture of the posterolate ral right third and/or fourth ribs. Additional chronic-appearing fractures of the posterolateral righ t 10th and 11th ribs. The right-sided rib fractures appear new since the prior study. Unchanged old h ealed fracture of the posterolateral left eighth rib which is appears unchanged since the prior study . There is an additional minimally displaced fracture of the anterolateral left seventh rib, unclear whether this was present at the time of the prior imaging. Lungs are clear with no focal airspace op[place] cities, pulmonary edema, pleural effusion or pneumothorax. Heart size within normal limits for AP sara hnique. No evident interval change in thoracic kyphosis with multiple chronic compression fractures i n the mid thoracic through the mid lumbar spine and with chronic vertebroplasties at multiple levels. IMPRESSION: 1. Age-indeterminate minimally displaced fracture of the anterolateral left seventh rib. There are a few additional bilateral subacute or chronic rib fractures. 2. No acute cardiopulmonary disease. 3. Stable appearance of a thoracic kyphosis with multiple chronic compression fractures, many with ve rtebro plasties in the thoracic and lumbar spine. Reviewed, dictated and finalized at location A. IMPRESSION: 1. Age-indeterminate minimally displaced fracture of the anterolateral left sev enth rib. There are a few additional bilateral subacute or chronic rib fracture s. 2. No acute cardiopulmonary disease. 3. Stable appearance of a thoracic kyphosis with multiple chronic compression f ractures, many with vertebro plasties in the thoracic and lumbar spine.
[2023-12-17 10:48] VITALS: BP 141/68; PULSE 60; RESP 16; TEMP 36.2; O2SAT 99
--- NOTE | 2023-12-17 12:12 | ED.FALL ---
HPI - Fall General Chief Complaint: Fall Stated Complaint: L LATERAL RIB PAIN S/P TRIP AND FALL Time Seen by Provider: 12/17/23 11:09 History of Present Illness HPI Narrative: Patient is an 83-year-old female who presents ER with left back/chest wall pain. She stumbled backwards into a metal shelf 4 days ago. She has had pain since then. No difficulty breathing. She can feel something moving/ clicking in her chest wall. She is known to have osteoporosis. Has tried bnjv-ohe-krxkusr medications without improvement. She does have hydrocodone at home but has not tried it. Related Data Home Medications Medication Instructions Recorded Confirmed calcitriol 0.25 mcg capsule 0.25 mcg PO DAILY 05/08/23 07/24/23 ergocalciferol (vitamin D2) 1,250 1,250 mcg PO WEEKLY 05/08/23 07/24/23 mcg (50,000 unit) capsule bdjxgbta-ylpnsdu-jcyv-lutein tablet tablet PO 05/08/23 07/24/23 Allergies Allergy/AdvReac Type Severity Reaction Status Date / Time No Known Allergies Allergy Unverified 12/13/23 09:26 Review of Systems Constitutional: Constitutional: Reports no additional constitutional complaints Cardiovascular: Cardiovascular: Reports no additional cardiovascular complaints Respiratory: Respiratory: Reports no additional respiratory complaints Gastrointestinal: Gastrointestinal: Reports no additional gastrointestinal complaints [facility] Past Medical History Medical History Arthritis of knee, left Chronic kidney disease, stage 3 Closed intertrochanteric fracture of left femur Dysphagia Fall from ladder Gastroesophageal reflux disease Hyperlipidemia Hypertension Osteopenia Painful orthopaedic hardware Surgical History Surgical History History of bilateral carpal tunnel release History of breast biopsy History of cataract extraction History of hysterectomy History of lumbar fusion History of repair of left rotator cuff History of vertebroplasty Family History Family History Other Family history non-contributory Social History Social History Social History: Surrogate medical decision maker: Jose Deleonen, spouse. Code status: Modified code, no intubation. Okay with CPR and medication. Smoking status: Never smoker Second hand tobacco smoke exposure: No Alcohol intake: never Substance use: never Substance use type: does not use Do You Feel Safe in your Home?: Yes Lack of Transportation: No Lack of Food: Never True Current Housing: I Have Housing Concerned About Future Housing: No Difficulty Paying Gas/Electric Bills: No Difficulty Paying for Meds: No Currently Unemployed: YES Education: Don't Know Difficulty w/ Childcare or Family Care: No Living arrangements: with family Occupation/Education: retired Gender identity (if verbalized by the patient): Female Sexual Orientation (if Verbalized by the Patient): Straight or Heterosexual Spiritual care concerns: No Exam Narrative: GENERAL: Well-appearing, well-nourished, and in no acute distress. HEAD: Normocephalic, atraumatic. ENT: Mucous membranes moist. CHEST: Clear to auscultation. No respiratory distress. Bruising along lateral chest wall left side with tenderness with palpation HEART: Regular rate and rhythm. Normal peripheral pulses. EXTREMITIES: Normal range of motion. No edema. NEURO: Alert and oriented x3. PSYCH: Normal mood and affect. Course Course Emergency Course: discussed imaging results and treatment plan. Incentive spirometry ordered. Discharge home. Vital Signs Vital signs: Vital Signs Temperature 97.2 F L 12/17/23 10:48 Pulse Rate 60 12/17/23 10:48 Respiratory Rate 16 12/17/23 10:48 Blood Pressure 141/68 H 12/17/23 10:48 Pulse Oximetry 99 12/17/23 10:4
[2023-12-17 12:38] VITALS: BP 136/72; PULSE 67; RESP 18; TEMP 36.4; O2SAT 97
== END 2023-12-17 12:38 | disposition home or self-care (01) ==
PROVIDERS: Emergency Provider Emergency Medicine; PCP Family Medicine
DX: S22.32XA Fracture of one rib, left side, initial encounter for closed fracture (principal); I12.9 Hypertensive chronic kidney disease with stage 1 through stage 4 chronic kidney disease, or unspecified chronic kidney disease; N18.30 Chronic kidney disease, stage 3 unspecified; E78.5 Hyperlipidemia, unspecified; K21.9 Gastro-esophageal reflux disease without esophagitis; M81.0 Age-related osteoporosis without current pathological fracture; M17.12 Unilateral primary osteoarthritis, left knee; Z98.42 Cataract extraction status, left eye; Z98.41 Cataract extraction status, right eye; Z90.710 Acquired absence of both cervix and uterus; Z98.1 Arthrodesis status; W01.198A Fall on same level from slipping, tripping and stumbling with subsequent striking against other object, initial encounter
CPT/HCPCS: 71046; 71100; 99283

== ENCOUNTER 2024-02-22 12:20 | Emergency (ER) | payer MEDICARE, OTHER, SELFPAY ==
--- NOTE | ~2024-02-22 | CT_ITS ---
EXAMINATION: CT pelvis wo con DATE: 02/22/2024 13:11 INDICATION: Trauma with fall one week prior TECHNIQUE: High resolution computed tomography (CT) of the pelvis was performed without intravenous c ontrast. Additional sagittal and coronal reconstructions were performed. Automated exposure control a nd iterative reconstruction technique were employed. The dose-length product was 419.61 mGy-cm. COMPARISON: Radiographs dated 01/09/2024, 04/18/2023 and 03/14/2023 FINDINGS: Again seen is a chronic comminuted intratrochanteric fracture of the proximal left femur which is bee n fixed with an antegrade intramedullary pérez and femoral neck dynamic compression screw. There is wagner e chronic callus formation about the fracture with minimal osseous bridging along the inferior margin of the fracture at the majority the fracture plane remains ununited. There is been ongoing progressi ve increasing subsidence of the femoral head and neck with progressive osteolysis of the femoral neck along the proximal margin of the fracture. The tip of the femoral neck screw which on prior radiogra phs has been progressively moving towards and eventually beyond the articular cortical margin of the femoral head now extends 7 mm beyond the articular cortex of the femoral head now contacting the supe romedial articular cortex of the left acetabulum. No acute pelvic or proximal femoral fractures ident ified. Mild osteoarthritis at the bilateral hip and sacroiliac joints. There is some heterotopic ossi fication along the distal left iliopsoas tendon. Lumbarized S1 segment. Chronic L3 and L4 lumbar compression fractures with change of prior vertebropl asty. There has been interval progression in vertebral body height loss at and L5 superior endplate c ompression fracture since lumbar spine CT dated 02/27/2019. There is subtle cortical angulation with underlying linear sclerosis at the anterior margin of the L4 vertebral body suggesting acute to subac [place] fracture. Gallbladder and visualized portions of the liver and bilateral kidneys are normal. There are few dive rticula along the sigmoid colon without adjacent from trace stranding to suggest diverticulitis. Pelv ic floor relaxation with rectoanal junction approximately 2.5 similar caudal to the level of the pubo coccygeal line. Bladder is normal. The uterus is not identified and has likely been surgically resect ed. IMPRESSION: 1. Likely acute to subacute progression of a chronic L5 compression fracture. 2. Internally fixed chronic comminuted intratrochanteric fracture of the proximal left femur with sug gestion of minimal amount of osseous bridging anteriorly with the majority fracture remaining ununite d. 3. Chronic progressive subsidence of the femoral head and neck with some osteolysis along the proxima l fracture margin and progressive protrusion of the tip of the femoral neck screw which extends 7 mm beyond the articular cortex of the femoral head and abuts the articular cortex at the superomedial le ft acetabulum. Reviewed, dictated and finalized at location A. LY CONTROLLER IMPRESSION: 1. Likely acute to subacute progression of a chronic L5 compression fracture. 2. Internally fixed chronic comminuted intratrochanteric fracture of the proxim al left femur with suggestion of minimal amount of osseous bridging anteriorly with the majority fracture remaining ununited. 3. Chronic progressive subsidence of the femoral head and neck with some osteol ysis along the proximal fracture margin and progressive protrusion of the tip o f the femoral neck screw which extends 7 mm beyond the articular cortex of the femoral head and abuts the articular cortex at the superomedial left acetabulum .
--- NOTE | ~2024-02-22 | CT_ITS ---
Noncontrast CT scan of the lumbar spine CLINICAL HISTORY: Trauma TECHNIQUE: Axial noncontrast imaging of the lumbar spine was performed. Sagittal and coronal reformat gonzalo images were constructed. Dose reduction technique was used on this scan by utilizing automated ex posure control and iterative reconstruction technique. The dose-length product (DLP) was 875.63 mGy-c m. FINDINGS: There is severe compression fracture of L4, with progressive loss of height as compared to prior exam from 02/27/2019, however the acuity of the progressive loss of height is unclear. Multiple additional compression fractures are present, with vertebroplasty cement, involving T10, T11, T12, L 1, L2, L3. These findings are stable as compared to 02/27/2019. Stable retropulsion of T12. At L1-L2, no definite disc bulge or herniation seen. There is mild facet hypertrophy. No spinal canal stenosis. There is mild bilateral neural foraminal narrowing. At L2-L3, there is minimal disc bulge and mild facet arthropathy. No central canal stenosis or defini te neural foraminal narrowing. L3-L4, there is no disc bulge or herniation. There is prominent facet arthropathy. No central canal s tenosis. There is moderate bilateral neural foraminal narrowing. At L4-L5, there is disc bulge and severe facet arthropathy, resulting in severe spinal canal stenosis . There is severe right neural foraminal narrowing, and moderate to advanced left neural foraminal na rrowing. At L5-S1, there is no disc bulge or herniation. No spinal canal stenosis or neural foraminal narrowin g. Paravertebral soft tissues are unremarkable. Large hiatal hernia present. Impression: Severe compression fracture of L4. There has been progressive loss of height since prior exam from 2018. This is suspected to be chronic compression fracture, but this is not certain. MR could be considered to better evaluate for marrow edema, as indicated. Multiple additional stable compression fractures of the thoracolumbar spine with vertebroplasty cemen t. Severe degenerative spondylosis at L4-L5. Relatively mild degenerative change at the remainder of the lumbar spine. Reviewed, dictated and finalized at location M. TENANCE COORDINATOR Impression: Severe compression fracture of L4. There has been progressive loss of height si nce prior exam from February 2019. This is suspected to be chronic compression fracture, but this is not certain. MR could be considered to better evaluate fo r marrow edema, as indicated. Multiple additional stable compression fractures of the thoracolumbar spine wit h vertebroplasty cement. Severe degenerative spondylosis at L4-L5. Relatively mild degenerative change a t the remainder of the lumbar spine.
[2024-02-22 12:26] VITALS: BP 141/74; PULSE 100; RESP 20; TEMP 36.2; O2SAT 98
--- NOTE | 2024-02-22 12:52 | ED.GENADULT ---
HPI - General Adult General Chief complaint: Fall Stated complaint: fall Time Seen by Provider: 02/22/24 12:29 History of Present Illness HPI narrative: 83-year-old female presented to the emergency department for evaluation for lower back pain. Patient reports she had a ground level fall in her driveway approximately a 1.5 weeks ago. Patient reports she is trying to close the door of her jeep when she fell backwards and landed on her buttocks. Patient states she did not fall back and strike her head. Patient was able to be assisted to her feet and was able to ambulate and continue on with her day. Related Data Home Medications ?Medication ?Instructions ?Recorded ?Confirmed ?Last Taken ?Type calcitriol 0.25 mcg capsule 0.25 mcg PO DAILY 05/08/23 02/15/24 Unknown History ergocalciferol (vitamin D2) 1,250 1,250 mcg PO WEEKLY 05/08/23 02/15/24 Unknown History mcg (50,000 unit) capsule tmexinup-pfdowsd-fjfo-lutein tablet tablet PO 05/08/23 02/15/24 Unknown History Allergies Allergy/AdvReac Type Severity Reaction Status Date / Time No Known Allergies Allergy Unverified 02/15/24 09:36 Review of Systems Review of Systems: All systems reviewed & are unremarkable except as noted in HPI and below PMFSH Past Medical History Medical History Trochanteric bursitis, left hip Painful orthopaedic hardware Arthritis of knee, left Dysphagia Chronic kidney disease, stage 3 Gastroesophageal reflux disease Hypertension Osteopenia Hyperlipidemia Closed intertrochanteric fracture of left femur Fall from ladder Surgical History Surgical History History of bilateral carpal tunnel release History of repair of left rotator cuff History of breast biopsy History of lumbar fusion History of vertebroplasty History of cataract extraction History of hysterectomy Family History Family History Other Family history non-contributory Social History Social History Social History: Surrogate medical decision maker: Jose Deleonen, spouse. Code status: Modified code, no intubation. Okay with CPR and medication. Smoking status: Never smoker Second hand tobacco smoke exposure: No Alcohol intake: never Substance use: never Substance use type: does not use Do You Feel Safe in your Home?: Yes Lack of Transportation: No Lack of Food: Never True Current Housing: I Have Housing Concerned About Future Housing: No Difficulty Paying Gas/Electric Bills: No Difficulty Paying for Meds: No Currently Unemployed: YES Education: Don't Know Difficulty w/ Childcare or Family Care: No Living arrangements: with family Occupation/Education: retired Gender identity (if verbalized by the patient): Female Sexual Orientation (if Verbalized by the Patient): Straight or Heterosexual Spiritual care concerns: No Exam Narrative: APPEARANCE: Well appearing, no pain, no distress, well-nourished. HEAD: normocephalic, atraumatic. EYES: PERRLA/EOMI, conjunctivae clear. NOSE: Normal no drainage EARS:TMS clear with good light reflex. THROAT: Pharynx clear, no exudate. NECK: Supple. No adenopathy, no masses. RESPIRATORY: Airway patent, respirations nonlabored. Clear to auscultation bilaterally, no rales, rhonchi, wheezing. CARDIOVASCULAR: Regular rate and rhythm without murmurs rubs or gallops. ABDOMINAL: Soft, nontender, nondistended, normal bowel sounds MUSCULOSKELETAL: Moves all extremities. Strength/ROM intact, No edema, No calf tenderness. No midline tenderness to palpation of the lumbar spine NEURO: Alert. Cranial nerves II through XII intact. Good gait. Good coordination SKIN: Warm, dry. Normal Color Course Vital Signs Vital signs: Vital Signs Temperature 97.2 F L 02/22/24 12:26 Pulse Rate 100 02/22/24 12:26 Respiratory Rate 20 02/22/24 12:26 Blood Pressure 141/74 H 02/22/24 12:26 Pulse Oximetry 98 02/22/24 12:26 Oxygen Delivery Room Air 02/22/24 12:26 Temperature 97.8 F 02/22/24 16:09 Pulse Rate 95 02/22/24 16:09 Respiratory Rate 18 02/22/24 16:09 Blood Pressure 128/80 02/22/24 16:09 Pulse Oximetry 99 02/22/24 16:09 Oxygen Delivery Room Air 02/22/24 12:26 Medical Decision Making MDM Narrative Medical decision making narrative: 83-year-old female present to the emergency department for evaluation for lower back pain after a fall last week. CT was concerning for acute on chronic L4 compression fracture. Patient is neurologically intact. Patient was emphatic about not receiving pain medications. Patient was willing to try a back brace. [facility] clinic was consulted and patient was placed in an LSO. Patient does have previous follow-up with Neurosurgery and she was encouraged to have follow-up with them at [place]. Patient was also provided information to follow-up with our neurosurgeons if needed. Patient was comfortable the plan for discharge and close follow-up. All questions concerns were addressed. Differential Diagnosis Differential Diagnosis: Lumbar fracture, sciatica Vital Signs Vital Signs: Vital Signs Temperature 97.2 F L 02/22/24 12:26 Pulse Rate 100 02/22/24 12:26 Respiratory Rate 20 02/22/24 12:26 Blood Pressure 141/74 H 02/22/24 12:26 Pulse Oximetry 98 02/22/24 12:26 Oxygen Delivery Room Air 02/22/24 12:26 Temperature 97.8 F 02/22/24 16:09 Pulse Rate 95 02/22/24 16:09 Respiratory Rate 18 02/22/24 16:09 Blood Pressure 128/80 02/22/24 16:09 Pulse Oximetry 99 02/22/24 16:09 Oxygen Delivery Room Air 02/22/24 12:26 Imaging Data Radiologist's impression: Impressions Pelvis CT 02/22/24 13:37 IMPRESSION: 1. Likely acute to subacute progression of a chronic L5 compression fracture. 2. Internally fixed chronic comminuted intratrochanteric fracture of the proximal left femur with suggestion of minimal amount of osseous bridging anteriorly with the majority fracture remaining ununited. 3. Chronic progressive subsidence of the femoral head and neck with some osteolysis along the proximal fracture margin and progressive protrusion of the tip of the femoral neck screw which extends 7 mm beyond the articular cortex of the femoral head and abuts the articular cortex at the superomedial left acetabulum. Lumbar Spine CT 02/22/24 13:51 Impression: Severe compression fracture of L4. There has been progressive loss of height since prior exam from February 2019. This is suspected to be chronic compression fracture, but this is not certain. MR could be considered to better evaluate for marrow edema, as indicated. Multiple additional stable compression fractures of the thoracolumbar spine with vertebroplasty cement. Severe degenerative spondylosis at L4-L5. Relatively mild degenerative change at the remainder of the lumbar spine. Discharge Plan Discharge Clinical Impression: Closed compression fracture of L4 vertebra Patient Disposition: Home, Self-Care Condition: Stable Instructions: Antibiotic Form, Vertebral Compression Fracture (ED) Additional Instructions: LSO brace for comfort. Have close follow-up with your neurosurgeon. If you have any worsening symptoms and please call or return to the emergency department. Patient Language: [place]de[place] Prescriptions: New (DME) back brace Misc See Rx Instructions .Route Qty: 1 0RF Rx Instructions: LSO back brace No Action calcitriol 0.25 mcg capsule 0.25 mcg PO DAILY ergocalciferol (vitamin D2) 1,250 mcg (50,000 unit) capsule 1,250 mcg PO WEEKLY fgdevxtq-ibkofyt-wsrw-lutein Tablet PO ropinirole 0.5 mg tablet 0.5 mg PO QHS Qty: 90 1RF baclofen 5 mg tablet 5 mg PO Q8H Qty: 90 0RF acetaminophen-codeine 300-30 mg tablet 1 tablet PO Q8H PRN (Reason: pain) Qty: 60 0RF furosemide 40 mg tablet 40 mg PO BID Qty: 60 0RF allopurinol 100 mg tablet 100 mg PO DAILY Qty: 30 0RF pantoprazole 40 mg tablet,delayed release (DR/EC) 40 mg PO DAILY Qty: 90 0RF losartan 25 mg tablet 25 mg PO DAILY Qty: 30 0RF Follow-up/Referrals: Negrita Dexter MD [Physician] - Kindra Becerra MD [Primary Care Provider] -
[2024-02-22 16:09] VITALS: BP 128/80; PULSE 95; RESP 18; TEMP 36.6; O2SAT 99
== END 2024-02-22 16:25 | disposition home or self-care (01) ==
PROVIDERS: Emergency Provider Emergency Medicine; PCP Family Medicine
DX: S32.040A Wedge compression fracture of fourth lumbar vertebra, initial encounter for closed fracture (principal); I12.9 Hypertensive chronic kidney disease with stage 1 through stage 4 chronic kidney disease, or unspecified chronic kidney disease; N18.30 Chronic kidney disease, stage 3 unspecified; E78.5 Hyperlipidemia, unspecified; M85.80 Other specified disorders of bone density and structure, unspecified site; M17.12 Unilateral primary osteoarthritis, left knee; Z98.1 Arthrodesis status; Z98.49 Cataract extraction status, unspecified eye; Z90.710 Acquired absence of both cervix and uterus; W18.39XA Other fall on same level, initial encounter
CPT/HCPCS: 72131; 72192; 99284

== ENCOUNTER 2024-03-12 11:39 | Outpatient (CLI) | payer MEDICARE, OTHER, SELFPAY ==
--- NOTE | ~2024-03-12 | XR_ITS ---
XR hip RT min 2V Ordering provider: Sandy Guerrier PA-C History: . W19.XXXA - Unspecified fall, initial encounter . Comparison: None. FINDINGS: BONES: No acute fracture or dislocation. HIP JOINT SPACES: Mild to moderate osteoarthritic changes of the right hip. SACROILIAC JOINT SPACES/LUMBAR SPINE: The sacroiliac joint spaces are normal. Mild degenerative du es of the visualized lower lumbar spine. PUBIC SYMPHYSIS: Pubic symphysitis. SOFT TISSUES: Normal. IMPRESSION: No acute osseous abnormality pelvis and right hip. Reviewed, dictated and finalized at location A. CTOR OF HEALTHCARE SYSTEMS
--- NOTE | ~2024-03-12 | XR_ITS ---
3 VIEWS LUMBAR SPINE Ordering provider: Sandy Guerrier PA-C History: . W19.XXXA - Unspecified fall, initial encounter . Comparison: None. FINDINGS: VERTEBRAL BODIES:Fast is seen in T10, T11 , T12, L1, L2 and L3. Highly suggestive compression fractu re of L4. MRI evaluation advised. DISK SPACES: Narrowing of the disc L4-L5 and and L5-S1. Multilevel facet joint disease. SOFT TISSUES: Normal. Pubic symphysitis. IMPRESSION: Highly suggestive compression fracture of L4. MRI evaluation advised. Multilevel vertebroplasty. Reviewed, dictated and finalized at location A. OWN MACHINE OPERATOR
== END 2024-03-12 11:40 | disposition home or self-care (01) ==
LOC: ANHIMG 11:42
PROVIDERS: PCP Physician Assistant; Visit Provider Physician Assistant
DX: M54.50 Low back pain, unspecified (principal); M25.551 Pain in right hip; W19.XXXA Unspecified fall, initial encounter
CPT/HCPCS: 72100; 73502

== ENCOUNTER 2024-08-02 12:24 | Emergency (ER) | payer MEDICARE, OTHER, SELFPAY ==
--- NOTE | ~2024-08-02 | XR_ITS ---
[XR ribs RT 2V w CXR 2V ] INDICATION: Right rib pain after fall TECHNIQUE: Frontal projection of the upper right ribs, frontal projection of the lower right ribs, ob lique projection of all the right ribs, frontal inspiratory chest x-ray for interpretation. FINDINGS: There are right ninth, 10th and 11th rib fractures. There are healed right third and fourth rib fractures. There are multiple compression fractures of the thoracic lumbar spine many of which a re treated with vertebroplasty. Generalized osteopenia. Cardiomegaly. Large hiatal hernia. Accentuate d thoracic kyphosis secondary to compression fractures. There are no soft tissue abnormality seen. T he lungs are clear. No pneumothorax identified. IMPRESSION: 1: Acute right ninth, 10th and 11th rib fractures. Reviewed, dictated and finalized at location A.
--- OUTSIDE RECORDS SUMMARY | 2024-08-02 12:27 | XMS_ITS ---
Author Organization [facility] Address [address] [place] [address] Care Team Providers Care Heavy Duty Custodian Name Role Phone Philip Rony Unavailable [phone] Encounters Encounter Location Date Provider Diagnosis [place] Office 2043 [facility] [address] [place] [address] 05/02/2024 Rony Palacios Plan Of Treatment Next Appt Details Provider Name:Rony Palacios , 08/22/2024 01:30:00 PM, 2043 [facility], [facility] 15, [place], [address], Progress Notes * Ally BROOKSDOB:1940 (84 yo F)Acc No.[id number]:05/02/2024 Progress Notes Patient: Ally ALFARO Provider: Tommie PICKETT MD, Michaelle.Lidia.C.P, F.A.S.N. :1940 A ge:84 Y S ex:Female Date:05/02/2024 Address:[address] , [facility] Subjective: * Chief Complaints: * * Medical History: Objective: * Vitals: Assessment: Plan: * Treatment: * Billing Information: * Visit Code: * Procedure Codes: * Electronic signature of Eliot Palacios MD on 08/02/2024 at 12:27 PM CDT Sign off status: Pending * Provider: Tommie PICKETT MD, Michaelle.Lidia.C.P, F.A.S.N. Date: 05/02/2024 Generated for Printing/Faxing/eTransmitting on: 08/02/2024 12:27 PM CDT
--- OUTSIDE RECORDS SUMMARY | 2024-08-02 12:27 | XMS_ITS | Encounter Summary ---
Author Organization [facility] Address [address] [place] [address] Care Team Providers Care Filler Block Inserter Remover Name Role Phone Jagdish Hay MD Primary Care Provider Justin Salmeron MD Primary Care Provider [phone] Encounter Details Date Type Department Care Team (Late st Contact Info) Description 03/10/2019 Telephone [facility] [address] [place] [address] Brenda Steel, RN Social History Tobacco Use Types Packs/Day Years Used Date Smoking Tobacco: Never Assessed Comments Unknown Sex and Gender Information Value Date Recorded Sex Assigned at Not on file Legal Sex Female 6:43 PM LEASING ASSISTANT Gender Identity Not on file Sexual Orientation Not on file documented as of this encounter Plan of Treatment Not on file documented as of this encounter Visit Diagnoses Not on filedocumented in this encounter Care Teams Filler Block Inserter Remover Relationship Specialty Start Date End Date Jagdish Hay MD PCP - General 11/03/16 12/20/20 Justin Salmeron MD PCP - General 12/21/20 documented as of this encounter
--- OUTSIDE RECORDS SUMMARY | 2024-08-02 12:27 | XMS_ITS | Referral Summary ---
Author Organization [facility] Address 1 [place] [address] Care Team Providers Care Hazardous Waste Remover Name Role Phone Justin Salmeron MD Primary Care Provider Encounters Date Type Department Care Team Description 06/05/2024 Telephone [facility] [address] [facility] Medical Office Building [address] [place] [address] Juliane Burris MD 06/03/2024 Orders Only [facility] [address] [facility] Advanced Medicine 5th [place] [address] [place] [id number] Juliane Burris MD Age-related osteoporosis without current pathological fracture (Primary Dx) 05/27/[address] Medical Office Building [address] [place] [address] Juliane Burris MD from Last 3 Months Allergies Active Allergy Reactions Criticality Noted Date Comments Atorvastatin Other (See comments) Low 04/03/2017 Medications multivitamin capsuleIndicatio ns:supplement includes calcium and Vit D Take 1 capsule by mouth daily Multi- Calcium 150 mg/ 1000 international units vitamin D Active UNABLE TO FINDIndications: hypertension Take 1 each by mouth daily Med Name: 20 mg lexipril per pt Active UNABLE TO FINDIndications: Pain Take 2 each by mouth 2 (two) times a day Med Name:extra strength ibuprofen Active varicella zoster (Zostavax, PF,) 19,400 unit/0.65 mL injection zostavax 18738 unt/0.65ml solr Active aspirin 81 mg enteric coated tablet aspirin 81 mg tablet,delayed release Take 1 tablet every day by oral route. 06/05/19 14 Active calcium carbonate-vitami n D3 1,500 mg (600mg elemental) -800 unit per tablet 500 mg +800 international units 150 mg from multi Total calcium 650 mg 04/08/19 21 Active cholecalciferol (VITAMIN D-3) 25 mcg (1,000 unit) tablet 5 tablets (5,000 Units total) Vitamin D 1000+1000 multi +800 calcium = Vitamin D 2800 international units daily Active ezetimibe-simvas tatin (VYTORIN) 10-40 mg per tablet ezetimibe 10 mg-simvastatin 40 mg tablet Take 1 tablet every day by oral route. Active fluticasone propionate (FLONASE) 50 mcg/actuation nasal spray fluticasone propionate 50 mcg/actuation nasal spray,suspension Active lisinopril-hydro CHLOROthiazide (ZESTORETIC) 20-25 mg per tablet lisinopril 20 mg-hydrochlorothi azide 25 mg tablet Active meloxicam (MOBIC) 15 mg tablet meloxicam 15 mg tablet TAKE 1 TABLET BY MOUTH ONCE DAILY Active pantoprazole DR (PROTONIX) 40 mg EC tablet Active pen needle, diabetic (Unifine Pentips) 31 gauge x 3/16 needleIndication s:Age-related osteoporosis without current pathological fracture Use daily with Tymlos 100 each 1 09/22/19 22 Active Additional Information Patient not taking.Reported on 09/12/2022 pen needle, diabetic (Unifine Pentips) 32 gauge x 5/32 needleIndication s:Age-related osteoporosis without current pathological fracture Use daily with Forteo 100 each 1 10/04/19 22 Active Additional Information Patient not taking.Reported on 03/10/2022 allopurinoL (ZYLOPRIM) 100 mg tablet Take 1 tablet (100 mg total) by mouth daily 01/12/20 22 Active calcitRIOL (ROCALTROL) 0.25 mcg capsule Take 1 capsule (0.25 mcg total) by mouth daily 01/12/20 22 Active furosemide (LASIX) 40 mg tablet Take 1 tablet (40 mg total) by mouth 2 (two) times a day 02/07/20 22 Active losartan (COZAAR) 25 mg tablet Take 1 tablet (25 mg total) by mouth daily 01/12/20 22 Active calcium carbonate/vitami n D3 (CALCIUM 500 + D ORAL) Take 1,000 mg by mouth Active mupirocin (BACTROBAN) 2 % ointmentIndicati ons:Minor Bacterial Skin Infections Apply topically 2 (two) times a day 22 g 06/24/19 23 Active Additional Information Patient not taking.Reported on 09/12/2022 traZODone (DESYREL) 50 mg tablet Take by mouth daily as needed 07/29/19 23 Active abaloparatide 80 mcg (3,120 mcg/1.56 mL) pen injectorIndicati ons:Age-related osteoporosis without current pathological fracture Inject 0.04 mL (80 mcg total) under the skin daily 1.56 mL 09/13/19 23 Active Additional Information Patient not taking.Reported on 10/30/2022 Active Problems Problem Noted Date Diagnosed Date Essential hypertension 04/15/2024 Hyperlipidemia 04/15/2024 Idiopathic osteoarthritis 04/15/2024 Incontinence without sensory awareness Renal osteodystrophy 04/15/2024 Stage 2 chronic kidney disease 04/15/2024 Stage 3 chronic kidney disease 04/15/2024 Compression fracture of lumbar vertebra 04/04/19 17 06/23/2022 Immunizations Immunization Administration Dates Next Due Influenza, Quadrivalent, Split, Intramuscular Influenza, Quadrivalent, Spl it, Preservative Free, Intramuscular 12/09/2019 Influenza, Trivalent, High D ose, Split, Preservative Free, Intramuscular 04/03/2017,04/03/2017 Pneumococcal Polysaccharide PPV23 12/29/2015 ZOSTER LIVE 08/25/2014 Social History Tobacco Use Types Packs/Day Years Used Date Smoking Tobacco: Never Smokeless Tobacco: Never Alcohol Use Standard Drinks/Week Comments Yes 0 (1 standard drink = 0.6 oz pur e alcohol) rare AUDIT-C Answer Date Recorded Frequency of Alcohol Consumption Never 03/31/2019 Average Number of Drinks Not on file 020 Frequency of Binge Drinking Not on file 03/06 Personal Safety Answer Date Recorded Have you ever been in or are you currently in a harmful physical or emotional relationship or is someone making you feel afraid or unsafe? Denies 03/31/2024 Comments Unknown Sex and Gender Information Value Date Recorded Sex Assigned at Not on file Legal Sex Female 6:43 PM HEAD WAITER Gender Identity Not on file Sexual Orientation Not on file Last Filed Vital Signs Vital Sign Reading Time Taken Comments Blood Pressure 113/55 03/31/2024 12:30 PM HEAD WAITER Pulse 86 03/31/2024 12:30 PM HEAD WAITER Temperature 36.6 C (97.8 F) 03/31/2024 10:25 AM HEAD WAITER Respiratory Rate 10 03/31/2024 12:00 PM HEAD WAITER Oxygen Saturation 98% 03/31/2024 12:30 PM HEAD WAITER Inhaled Oxygen Concentration - - Weight 59.9 kg (132 lb) 04/15/2024 10:25 AM HEAD WAITER Height 149.9 cm (4' 11) 04/15/2024 10:25 AM HEAD WAITER Body Mass Index 26.66 04/15/2024 10:25 AM HEAD WAITER Plan of Treatment Not on file Medical Devices Implanted Type Area Supervisor Pastry Device Identifier Shelf Expiration Date Model / Serial / Lot [employer] [id number] [employer] H[employer]oplex Without Needle Delivery System Kit Bone - [id number] Implanted:Qty: 1 on 03/31/2019 at [facility] [employer] XII 02/01/2021 [id number] / / [id number] Procedures Procedure Name Priority Date/Time Associated Diagnosis Comments DEXA TBS AXIAL SKELETON BONE DENSITY 1 OR MORE SITES Schedule Routine, Read Routine (OP Routine) 09/12/2022 11:13 AM CDT Age-related osteoporosis without current pathological fracture from Last 3 Months or Most Recently Relevant to Health Maintenance Results * Dexa TBS Axial Skeleton Bone Density 1 or more sites (09/12/2022 11:13 AM CDT) Anatomical Region Laterality Modality Wrist, Body N/A Radiographic Chioma ging Narrative 09/12/2022 8:41 PM CDT Patient Name: Ally Brooks Date of : 1940 Date of scan: 09/12/2022 Bone mineral density was performed on a [employer] Discovery Densitometer. Based on machine cross-calibration and precision studies the least significant changes of this densitometer is 0.024 g/cm2 at the spine, 0.020 g/cm2 at the total proximal femur, and 0.014g/cm2 at the forearm. HISTORY: This is a 82 y.o. postmenopausal female with a history of osteoporosis and vitamin D deficiency. She reports that she has never smoked. She has never used smokeless tobacco. Currently on treatment with calcium, vitamin D, and abaloparatide (Tymlos), previously treated with alendronate (Fosamax) and denosumab (Prolia), and current complaint of back pain and neck pain. INDICATIONS: Menopause status, treatment monitoring, vitamin D deficiency, and history of osteoporosis. FINDINGS: BONE MINERAL DENSITY OF THE PROXIMAL FEMUR Bone Mineral Density (BMD) of the left hip total was found to be 0.752 gm/cm2. This corresponds to a T-score standard deviations from the mean of young adults of -1.6. Femoral neck is 0.634 gm/cm2 with a T-score (standard deviations from the mean of young adults) of -1.9. When compared to the previous study of 03/10/2022 there has been no significant changes in bone density. BONE MINERAL DENSITY OF THE FOREARM Bone Mineral density (BMD) of the left proximal 1/3 of the radius measures 0.522 gm/cm2. This corresponds to a T-score (standard deviations from the mean of young adults) of -2.9. When compared to the previous study of 03/10/2022 there has been no significant changes in bone density. A forearm bone density study was performed in addition to the routine study because of the presence of vertebroplasty material. SUMMARY: Bone mineral density shows evidence of osteoporosis and marked increase risk of fracture. There has been no significant changes in bone density since previous measurement. The lumbar spine Trabecular Bone Score TBS was not obtained due to the bone mineral density of the spine not being acquired. ADDITIONAL COMMENTS: Postmenopausal Women and Men Over 50: Diagnostic criteria: Osteoporosis: BMD at or below -2.5 T-score; Osteopenia (low bone mass): BMD between -1.0 and -2.5 T-score. If the patient has a history of a fragility fracture, a fracture that occurred with trauma equivalent to a fall from a standing position or less, then the diagnosis is osteoporosis regardless of bone density. The history and data sections of the bone mineral density scan were prepared by Stefanie Guzman)(CBDT) who is accredited by the International Society of Clinical Densitometry. The overall patient assessment and scan interpretation were performed by Juliane Burris M.D. who is certified by the International Society of Clinical Densitometry. [id number] Juliane Burris MD IMG DXA PROCEDURES Final Resu lt from Last 3 Months or Most Recently Relevant to Health Maintenance Insurance MEDICARE RAILROAD [facility] MEDICARE ADVANTAGE [facility] Address: [address] [address] [place] [phone] [id number] [facility] UHC MEDICARE ADVANTAGE [place] [phone] [facility] MEDICARE Advance Directives For more information, please contact: [phone] * Full Code (Latest Code Status on File) Date Activated Date Inactivated Comments 12/14/2020 10:28 AM 12/14/2020 4:20 PM * Full Code Date Activated Date Inactivated Comments 12/14/2020 10:28 AM 12/14/2020 10:28 AM Care Teams Hazardous Waste Remover Relationship Specialty Start Date End Date Justin Salmeron MD PCP - General 12/21/20
--- OUTSIDE RECORDS SUMMARY | 2024-08-02 12:28 | XMS_ITS ---
Author Organization [facility] Address [address] [place] [address] Care Team Providers Care Director Of Corporate Sponsorships Name Role Phone Rony Palacios Unavailable [phone] Problems Problem Type SNOMED Code ICD Code Onset Dates Problem Status W/U Status Risk Notes Problem Chronic kidney disease stage 3 (disorder) (913254637) Chronic kidney disease, stage 3 unspecified (N18.30) Active confirmed Problem Primary generalised osteoarthritis (534314968) Primary generalized (osteo)arthritis (M15.0) Active confirmed Problem Incontinence without sensory awareness (289293407) 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 :1940 A ge:83 Y S ex:Female Date:04/04/2024 Address:[address] [place] [address] [place]ma[place] , [facility] Subjective: * Chief Complaints: * * Medical [...] Treatment: * Billing Information: * Visit Code: 95549 Office Visit, Est Pt., Level 4. * Procedure Codes: * Electronic signature of Eliot Palacios MD on 08/02/2024 at 12:27 PM CDT Sign off status: Pending * Provider: Tommie PICKETT MD, F.A.C.P, F.A.S.N. Date: 0 04/04/2024 Generated for Printing/Faxing/eTransmitting on: 0 08/02/2024 12:27 PM CDT
--- OUTSIDE RECORDS SUMMARY | 2024-08-02 12:28 | XMS_ITS | Patient Health Record ---
Author Organization [facility] Address [address] [place] [address] Care Team Providers Care Party Coordinator Name Role Phone Rony Palacios Unavailable [phone] Reason For Referral No Information Medications Medication SIG (Take, Route, Frequency, Duration) Notes Start Date End Date Status Allopurinol 100 MG Take 1 tablet by mary th once daily for 90 Active Calcitriol 0.25 MCG Take 1 capsule by mo uth once daily for 90 days Active Furosemide 40 MG 1 tablet Orally TWIC E A DAY for 90 days Active Losartan Potassium 25 MG Take 1 tablet b y mouth once daily for 90 Active Problems Problem Type SNOMED Code ICD Code Onset Dates Problem Status W/U Status Risk Notes Problem Hyperlipidemia (58124042) Hyperlipidemia, unspecified (E78.5) Active confirmed Problem Essential hypertension (80481253) Essential (primary) hypertension (I10) Active confirmed Problem Primary generalised osteoarthritis (917380362) Primary generalized (osteo)arthritis (M15.0) Active confirmed Problem Renal osteodystrophy (48565241) Renal osteodystrophy (N25.0) Active confirmed Problem Secondary hyperparathyroidism of renal origin (79310493) Secondary hyperparathyroidism of renal origin (N25.81) Active confirmed Problem Incontinence without sensory awareness (632324087) Incontinence without sensory awareness (N39.42) Active confirmed Problem Proteinuria (00030843) Proteinuria, unspecified (R80.9) Active confirmed Problem Chronic kidney disease stage 3 (disorder) (247693082) Chronic kidney disease, stage 3 unspecified (N18.30) Active confirmed Problem Elevation of lev els of liver transaminase levels (R74.01) Active confirmed Encounters Encounter Location Date Provider Diagnosis [facility] [address] [facility] 15 [place] [address] 08/31/2023 Rony Palacios Chronic kidney disea se, stage 2 (mild) N18.2 ; Essential (primary) hypertension I10 ; Hyperlipidemia, unspecified E78.5 and Renal osteodystrophy N25.0 [facility] [address] [place] [address] 11/02/2023 Rony Palacios Chronic kidney disea se, stage 2 (mild) N18.2 ; Renal osteodystrophy N25.0 ; Essential (primary) hypertension I10 and Hyperlipidemia, unspecified E78.5 [facility] [address] [place] [address] 04/04/2024 Rony Palacios Chronic kidney disea se, stage 3 unspecified N18.30 ; Essential (primary) hypertension I10 ; Renal osteodystrophy N25.0 ; 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 ; Primary generalized (osteo)arthritis M15.0 and Incontinence without sensory awareness N39.42 [facility] [address] [place] [address] 05/16/2024 Rony Palacios Chronic kidney disea se, stage 3 unspecified N18.30 ; Renal osteodystrophy N25.0 ; Essential (primary) hypertension I10 ; Hyperlipidemia, unspecified E78.5 ; Primary generalized (osteo)arthritis M15.0 ; Incontinence without sensory awareness N39.42 ; Secondary hyperparathyroidism of renal origin N25.81 ; Proteinuria, unspecified R80.9 and Elevation of levels of liver transaminase levels R74.01 Tony Anderson [address] [place] [address] 05/14/2024 Rony Palacios [facility] [address] [place] [address] 05/16/2024 Rony Palacios [facility] [address] [facility] [address] [address] 05/19/2024 Rony Palacios Assessments Encounter Date Diagnosis (ICD Code) Assessment Notes Treatment Notes Treatment Clinical Notes Section Notes 08/31/2023 Chronic kidney disea se, stage 2 (mild) (ICD-10 - N18.2) 11/02/2023 Chronic kidney disea se, stage 2 (mild) (ICD-10 - N18.2) 11/02/2023 Renal osteodystrophy (ICD-10 - N25.0) 04/04/2024 Essential (primary) hypertension (ICD-10 - I10) 04/04/2024 Chronic kidney disea se, stage 3 unspecified (ICD-10 - N18.30) 05/16/2024 Chronic kidney disea se, stage 3 unspecified (ICD-10 - N18.30) 11/02/2023 Essential (primary) hypertension (ICD-10 - I10) 05/16/2024 Renal osteodystrophy (ICD-10 - N25.0) 04/04/2024 Renal osteodystrophy (ICD-10 - N25.0) 08/31/2023 Essential (primary) hypertension (ICD-10 - I10) 08/31/2023 Hyperlipidemia, unspecified (ICD-10 - E78.5) 11/02/2023 Hyperlipidemia, unspecified (ICD-10 - E78.5) 04/04/2024 Hyperuricemia withou t signs of inflammatory arthritis and tophaceous disease (ICD-10 - E79.0) 05/16/2024 Essential (primary) hypertension (ICD-10 - I10) 05/16/2024 Hyperlipidemia, unspecified (ICD-10 - E78.5) 04/04/2024 Primary generalized (osteo)arthritis (ICD-10 - M15.0) 08/31/2023 Renal osteodystrophy (ICD-10 - N25.0) 04/04/2024 Incontinence without sensory awareness (ICD-10 - N39.42) 05/16/2024 Primary generalized (osteo)arthritis (ICD-10 - M15.0) 05/16/2024 Incontinence without sensory awareness (ICD-10 - N39.42) 05/16/2024 Secondary hyperparathyroidism of renal origin (ICD-10 - N25.81) 05/16/2024 Proteinuria, unspecified (ICD-10 - R80.9) 05/16/2024 Elevation of levels of liver transaminase levels (ICD-10 - R74.01) Plan Of Treatment Next Appt Details Provider Name:Rony Palacios , 08/22/2024 01:30:00 PM, [address], [address], [place], [address],
--- OUTSIDE RECORDS SUMMARY | 2024-08-02 12:28 | XMS_ITS ---
Author Organization [facility] Address [address] [address] [place] [address] Care Team Providers Care Station Worker Name Role Phone Rony Palacios Unavailable [phone] Problems Problem Type SNOMED Code ICD Code Onset Dates Problem Status W/U Status Risk Notes Problem Secondary hyperparathyroidism of renal origin (59241479) Secondary hyperparathyroidism of renal origin (N25.81) Active confirmed Problem Proteinuria (38264673) Proteinuria, unspecified (R80.9) Active confirmed Problem Elevation of lev els of liver transaminase levels (R74.01) Active confirmed Encounters Encounter Location Date Provider Diagnosis [place] [facility] [address] [facility] 15 [place] [address] 05/16/2024 Rony Palacios Chronic kidney disea se, [...] Name:Rony Palacios , 08/22/2024 01:30:00 PM, [address] [facility], [facility], [place], [address], Progress Notes * Ally BACONDOB:1940 (84 yo F)Acc No.[id number]:05/16/2024 Progress Notes Patient: Ally ALFARO Provider: Tommie PICKETT MD, F.A.C.P, F.A.S.N. :1940 A ge:84 Y S ex:Female Date:05/16/2024 Address:[address] [place] [address] Subjective: * Chief Complaints: * * Medical [...] Treatment: * Billing Information: * Visit Code: 00528 Office Visit, Est Pt., Level 4. * Procedure Codes: * Electronic signature of Eliot Palacios MD on 08/02/2024 at 12:27 PM CDT Sign off status: Pending * Provider: Tommie PICKETT MD, Michaelle.Lidia.C.P, F.A.S.N. Date: 0 05/16/2024 Generated for Printing/Faxing/eTransmitting on: 0 08/02/2024 12:27 PM CDT
--- OUTSIDE RECORDS SUMMARY | 2024-08-02 12:28 | XMS_ITS | Clinical Summary ---
Author Organization [facility] Address 1 [place] [address] Care Team Providers Care Wound Care Rn Name Role Phone Justin Salmeron MD Primary Care Provider [phone] Allergies Active Allergy Reactions Criticality Noted Date [...] (Zostavax, PF,) 19,400 unit/0.65 mL injection zostavax 19375 unt/0.65ml solr Active aspirin 81 mg enteric [...] needle, diabetic (Unifine Pentips) 31 gauge x 316 needleIndication s:Age-related osteoporosis without current pathological fracture Use daily with Tymlos 100 each 1 09/22/19 22 Active Additional Information Patient not taking.Reported on 09/12/2022 pen needle, diabetic (Unifine Pentips) 32 gauge x needleIndication s:Age-related osteoporosis without current pathological fracture [...] fracture of lumbar vertebra 04/04/19 17 06/23/2022 Encounters Date Type Department Care Team Description 06/05/[address] Medical Office Building [address] [place] [address] Juliane Burris MD 06/03/2024 Orders Only [facility] [address] [facility] 5th [place] [address] [place] [address] Juliane Burris MD Age-related osteoporosis without current pathological fracture (Primary Dx) 05/27/[address] Medical Office Building [address] [place] [address] Juliane Burris MD from Last 3 Months Immunizations Immunization Administration Dates Next Due Influenza, Quadrivalent, Split, Intramuscular Influenza, Quadrivalent, Spl it, Preservative Free, Intramuscular 12/09/2019 Influenza, Trivalent, High D ose, Split, Preservative Free, Intramuscular 04/03/2017,04/03/2017 Pneumococcal Polysaccharide PPV23 12/29/2015 ZOSTER LIVE 08/25/2014 Surgical History Surgery Date Site/Laterality Comments KYPHOPLASTY LUMBAR 04/06/2016 N/A KYPHOPLASTY THORACIC 03/31/2019 N/A HYSTERECTOMY SHOULDER SURGERY Left KYPHOPLASTY THORACIC 12/14/2020 N/A KYPHOPLASTY LUMBAR 03/31/2024 N/A Medical History Medical History Date Comments Hypertension Family History Medical History Relation Name Comments Osteoporosis Mother Broken bones Neg Hx Hip fracture Neg Hx Kyphosis Neg Hx Scoliosis Neg Hx Relation Name Status Comments Mother Social History Tobacco Use Types Packs/Day Years [...] on file 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 Gender Identity Not on file Sexual Orientation Not on file Obstetrics History Last Filed Vital Signs Vital Sign Reading Time Taken Comments Blood Pressure 113/55 03/31/2024 12:30 PM ACTING TEACHER Pulse 86 03/31/2024 12:30 PM ACTING TEACHER Temperature 36.6 C (97.8 F) 03/31/2024 10:25 AM ACTING TEACHER Respiratory Rate 10 03/31/2024 12:00 PM ACTING TEACHER Oxygen Saturation 98% 03/31/2024 12:30 PM ACTING TEACHER Inhaled Oxygen Concentration - - Weight 59.9 kg (132 lb) 04/15/2024 10:25 AM ACTING TEACHER Height 149.9 cm (4' 11) 04/15/2024 10:25 AM ACTING TEACHER Body Mass Index 26.66 04/15/2024 10:25 AM ACTING TEACHER Plan of Treatment Health Maintenance Due Date Last Done Comments Depression Screening 1940 DTaP/Tdap/Td Vaccine (1 - Tdap) 1952 Hepatitis B Screening 1959 Well Visit 65+ 2006 Zoster Vaccine (2 of 3) 10/20/2014 08/25/2014 Pneumococcal vaccine 65+ (2 of 2 - PCV) 12/28/2016 12/29/2015 Osteoporosis Screening-Bone Density Scan 09/12/2024 09/12/2022, 03/10/2022, 09/20/2021 Influenza Vaccine (Season Ended) 2024 12/09/2019, 04/03/2017, 04/03/2017, Additional history exists Fall Risk Assessment 03/31/2025 03/31/2024 Medical Devices Implanted Type Area Quarantine Inspector Device Identifier Shelf Expiration Date Model / Serial / Lot SpotRight [id number] Vertaplex Hv Autoplex Without Needle Delivery System Kit Bone - [id number] Implanted:Qty: 1 on 03/31/2019 at [facility] 02/01/2021 [id number] / / [id number] Procedures Procedure Name Priority Date/Time Associated Diagnosis [...] Bone mineral density was performed on a HoloGreenBytes Discovery Densitometer. Based on machine cross-calibration and [...] by the International Society of Clinical Densitometry. [id number] Juliane Burris MD IMG DXA PROCEDURES Final Resu lt from Last 3 Months or Most Recently Relevant to Health Maintenance Insurance MEDICARE RAILROAD [facility] MEDICARE ADVANTAGE [facility] MEDICARE ADVANTAGE [facility] [place] [address] Advance Directives For more information, please contact: [phone] * Full Code (Latest Code Status on File) Date Activated Date Inactivated Comments 12/14/2020 10:28 AM 12/14/2020 4:20 PM * Full Code Date Activated Date Inactivated Comments 12/14/2020 10:28 AM 12/14/2020 10:28 AM Care Teams Wound Care Rn Relationship Specialty Start Date End Date Justin Salmeron MD PCP - General 12/21/20
[2024-08-02 12:31] VITALS: BP 111/61; PULSE 98; RESP 16; TEMP 36.4; O2SAT 97
--- OUTSIDE RECORDS SUMMARY | 2024-08-02 13:12 | XMS_ITS | Encounter Summary ---
Author Organization [facility] Healthcare Address [address] [place] [address] Care Team Providers Care Fabrication Mig Welder Name Role Phone Jagdish Hay MD Primary Care Provider [phone] Justin Salmeron MD Primary Care Provider [phone] Encounter Details Date Type Department Care Team (Late st Contact Info) Description 03/10/2019 Telephone [facility] Radiology 1 [place] [address] Brenda Steel, RN Social History Tobacco Use Types Packs/Day Years Used Date Smoking Tobacco: Never Assessed Comments Unknown Sex and Gender Information Value Date Recorded Sex Assigned at Not on file 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
--- OUTSIDE RECORDS SUMMARY | 2024-08-02 13:12 | XMS_ITS | Clinical Summary ---
Author Organization [facility] Address 1 [place] [address] Care Team Providers Care Electronic Intelligence Officer Name Role Phone Justin Salmeron MD Primary Care Provider [phone] Allergies Active Allergy Reactions Criticality Noted Date [...] (Zostavax, PF,) 19,400 unit/0.65 mL injection zostavax 25132 unt/0.65ml solr Active aspirin 81 mg enteric [...] Type Department Care Team Description 06/05/[address] Medical Office Building [address] [place] [address] Juliane Burris MD 06/03/[address] [facility] [address] 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 Gender Identity Not on file Sexual Orientation Not on file Obstetrics History Last Filed Vital Signs Vital Sign Reading Time Taken Comments Blood Pressure 113/55 03/31/2024 12:30 PM CLAY PRODUCTS MACHINE OPERATOR Pulse 86 03/31/2024 12:30 PM CLAY PRODUCTS MACHINE OPERATOR Temperature 36.6 C (97.8 F) 03/31/2024 10:25 AM CLAY PRODUCTS MACHINE OPERATOR Respiratory Rate 10 03/31/2024 12:00 PM CLAY PRODUCTS MACHINE OPERATOR Oxygen Saturation 98% 03/31/2024 12:30 PM CLAY PRODUCTS MACHINE OPERATOR Inhaled Oxygen Concentration - - Weight 59.9 kg (132 lb) 04/15/2024 10:25 AM CLAY PRODUCTS MACHINE OPERATOR Height 149.9 cm (4' 11) 04/15/2024 10:25 AM CLAY PRODUCTS MACHINE OPERATOR Body Mass Index 26.66 04/15/2024 10:25 AM CLAY PRODUCTS MACHINE OPERATOR Plan of Treatment Health Maintenance Due Date [...] 03/31/2025 03/31/2024 Medical Devices Implanted Type Area Industrial Truck Mechanic Device Identifier Shelf Expiration Date Model / Serial / Lot Linkyt [id number] Vertaplex Hv Autoplex Without Needle Delivery System Kit Bone - [id number] Implanted:Qty: 1 on 03/31/2019 at [facility] 02/01/2021 [id number] / / [id number] Procedures Procedure Name Priority Date/Time Associated Diagnosis [...] Bone mineral density was performed on a HoloMorris Innovative Discovery Densitometer. Based on machine cross-calibration and [...] by the International Society of Clinical Densitometry. [id number] Juliane Burris MD IMG DXA PROCEDURES Final Resu lt from Last 3 Months or Most Recently Relevant to Health Maintenance Insurance MEDICARE RAILROAD [facility] MEDICARE ADVANTAGE [facility] Address: [address] [address] [place] [address] [facility] MEDICARE ADVANTAGE [facility] Address: [facility] [address] [place] [address] [facility] MEDICARE [facility] Address: [facility] [address] [place] [address] Advance Directives For more information, please contact: [phone] * Full Code (Latest Code Status on File) Date Activated Date Inactivated Comments 12/14/2020 10:28 AM 12/14/2020 4:20 PM * Full Code Date Activated Date Inactivated Comments 12/14/2020 10:28 AM 12/14/2020 10:28 AM Care Teams Electronic Intelligence Officer Relationship Specialty Start Date End Date Justin Salmeron MD PCP - General 12/21/20
--- OUTSIDE RECORDS SUMMARY | 2024-08-02 13:12 | XMS_ITS | Referral Summary ---
Author Organization [facility] Address 1 [place] [address] Care Team Providers Care Vocational Teacher Name Role Phone Justin Salmeron MD Primary Care Provider Encounters Date Type Department Care Team Description 06/05/2024 Telephone [facility] [address] [facility] Medical Office Building 2 [address] [place] [address] Juliane Burris MD 06/03/2024 Orders Only [facility] [address] [facility] 5th [place] [address] [place] [address] Juliane Burris MD Age-related osteoporosis without current pathological fracture (Primary Dx) 05/27/[address] Medical Office Building [address] [place] [address] Juliane Burris MD from Last [...] (Zostavax, PF,) 19,400 unit/0.65 mL injection zostavax 26928 unt/0.65ml solr Active aspirin 81 mg enteric [...] on file Legal Sex Female 6:43 PM 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 Gender Identity Not on file Sexual Orientation Not on file Last Filed Vital Signs Vital Sign Reading Time Taken Comments Blood Pressure 113/55 03/31/2024 12:30 PM PROCESS STRIPPER Pulse 86 03/31/2024 12:30 PM PROCESS STRIPPER Temperature 36.6 C (97.8 F) 03/31/2024 10:25 AM PROCESS STRIPPER Respiratory Rate 10 03/31/2024 12:00 PM PROCESS STRIPPER Oxygen Saturation 98% 03/31/2024 12:30 PM PROCESS STRIPPER Inhaled Oxygen Concentration - - Weight 59.9 kg (132 lb) 04/15/2024 10:25 AM PROCESS STRIPPER Height 149.9 cm (4' 11) 04/15/2024 10:25 AM PROCESS STRIPPER Body Mass Index 26.66 04/15/2024 10:25 AM PROCESS STRIPPER Plan of Treatment Not on file Medical Devices Implanted Type Area Pig Handler Device Identifier Shelf Expiration Date Model / Serial / Lot [employer] [id number] Verta4-Tell Hv Autoplex Without Needle Delivery System Kit Bone - [id number] Implanted:Qty: 1 on 03/31/2019 at [facility] 02/01/2021 [id number] / / [id number] Procedures Procedure Name Priority Date/Time Associated Diagnosis [...] Bone mineral density was performed on a [employer]BERHAWK Innovations Discovery Densitometer. Based on machine cross-calibration and [...] by the International Society of Clinical Densitometry. [id number] Juliane Burris MD IMG DXA PROCEDURES Final Resu lt from Last 3 Months or Most Recently Relevant to Health Maintenance Insurance MEDICARE RAILROAD [facility] Address: [address] [id number] [phone] [facility] UHC MEDICARE ADVANTAGE [address] [place] [id number] [facility] [place] [address] Advance Directives For more information, please contact: [phone] * Full Code (Latest Code Status on File) Date Activated Date Inactivated Comments 12/14/2020 10:28 AM 12/14/2020 4:20 PM * Full Code Date Activated Date Inactivated Comments 12/14/2020 10:28 AM 12/14/2020 10:28 AM Care Teams Vocational Teacher Relationship Specialty Start Date End Date Justin Salmeron MD PCP - General 12/21/20
[2024-08-02 14:01] VITALS: BP 114/69; PULSE 87; RESP 16; O2SAT 98
[2024-08-02] MEDS: HYDROcodone/acetaminophen (*CRX) 5-325 MG TABLET 1 TAB PO (14:01)
--- NOTE | 2024-08-02 14:42 | ED.FALL ---
HPI - Fall General Chief Complaint: Fall Stated Complaint: Right side pain after falling 2 days ago Time Seen by Provider: 08/02/24 13:04 History of Present Illness HPI Narrative: Patient is an 84-year-old female who presents ER with right-sided chest wall pain. Two days ago her old dual jumped up and pushed her in the back and she fell onto her right side on the wood floor. She did not strike her head or lose consciousness. She has pain on the right side with physical movements. No difficulty breathing. No productive cough. Related Data Home Medications ?Medication ?Instructions ?Recorded ?Confirmed ?Last Taken ?Type calcitriol 0.25 mcg capsule 0.25 mcg PO DAILY 05/08/23 05/05/24 Unknown History ergocalciferol (vitamin D2) 1,250 1,250 mcg PO WEEKLY 05/08/23 05/05/24 Unknown History mcg (50,000 unit) capsule egyzuqng-ctdvqyi-oxzb-lutein tablet tablet PO 05/08/23 05/05/24 Unknown History Allergies Allergy/AdvReac Type Severity Reaction Status Date / Time No Known Allergies Allergy Unverified 08/02/24 12:25 Review of Systems Review of Systems: All systems reviewed & are unremarkable except as noted in HPI and below Constitutional: Constitutional: Reports no additional constitutional complaints ENT: Reports system reviewed and no additional complaints, except as documented Cardiovascular: Cardiovascular: Reports no additional cardiovascular complaints Respiratory: Respiratory: Reports no additional respiratory complaints Musculoskeletal: Musculoskeletal: Reports no additional musculoskeletal complaints [facility] Past Medical History Medical History Trochanteric bursitis, left hip Painful orthopaedic hardware Arthritis of knee, left Dysphagia Chronic kidney disease, stage 3 Gastroesophageal reflux disease Hypertension Osteopenia Hyperlipidemia Closed intertrochanteric fracture of left femur Fall from ladder Surgical History Surgical History History of bilateral carpal tunnel release History of repair of left rotator cuff History of breast biopsy History of lumbar fusion History of vertebroplasty History of cataract extraction History of hysterectomy Family History Family History Other Family history non-contributory Social History Social History Social History: Surrogate medical decision maker: Jose Brooks, spouse. Code status: Modified code, no intubation. Okay with CPR and medication. Smoking status: Never smoker Second hand tobacco smoke exposure: No Alcohol intake: never Substance use: never Substance use type: does not use Do You Feel Safe in your Home?: Yes Lack of Transportation: No Lack of Food: Never True Current Housing: I Have Housing Concerned About Future Housing: No Difficulty Paying Gas/Electric Bills: No Difficulty Paying for Meds: No Currently Unemployed: YES Education: Don't Know Difficulty w/ Childcare or Family Care: No Living arrangements: with family Occupation/Education: retired Gender identity (if verbalized by the patient): Female Sexual Orientation (if Verbalized by the Patient): Straight or Heterosexual Spiritual care concerns: No Exam Narrative: GENERAL: Well-appearing, well-nourished, and in no acute distress. HEAD: Normocephalic, atraumatic. ENT: Mucous membranes moist. CHEST: Clear to auscultation. No respiratory distress. HEART: Regular rate and rhythm. Normal peripheral pulses. Tender palpation to the right chest wall mid axillary line and slightly more anterior Back: No reproducible midline tenderness the T/L-spine. EXTREMITIES: Normal range of motion. No edema. SKIN: Warm, dry, no rash. NEURO: Alert and oriented x3. PSYCH: Normal mood and affect. Course Course Emergency Course: Patient resting comfortably. Informed of results. [employer] for pain. Discharge home. Vital Signs Vital signs: Vital Signs Temperature 97.5 F L 08/02/24 12:31 Pulse Rate 98 08/02/24 12:31 Respiratory Rate 16 08/02/24 12:31 Blood Pressure 111/61 08/02/24 12:31 Pulse Oximetry 97 08/02/24 12:31 Oxygen Delivery Room Air 08/02/24 12:31 Temperature 97.5 F L 08/02/24 12:31 Pulse Rate 87 08/02/24 14:01 Respiratory Rate 16 08/02/24 14:01 Blood Pressure 114/69 08/02/24 14:01 Pulse Oximetry 98 08/02/24 14:01 Oxygen Delivery Room Air 08/02/24 12:31 MDM - Fall Imaging Data Radiologist's impression: ITS Impressions Ribs w/Chest X-Ray 08/02/24 13:53 IMPRESSION: 1: Acute right ninth, 10th and 11th rib fractures. Discharge Plan Discharge Clinical Impression: Fracture, ribs Patient Disposition: Home Condition: Stable Instructions: Rib Fracture (ED) Additional Instructions: Return the ER if you have difficulty breathing, you develop new productive cough, you have fever over 100.4? F, or have additional concerns. Patient Language: Khmer Prescriptions: New hydrocodone-acetaminophen 5-325 mg tablet 1 tablet PO Q6H PRN (Reason: pain) Qty: 12 0RF No Action calcitriol 0.25 mcg capsule 0.25 mcg PO DAILY ergocalciferol (vitamin D2) 1,250 mcg (50,000 unit) capsule 1,250 mcg PO WEEKLY kntcpbja-goyybhb-uyfo-lutein Tablet PO acetaminophen-codeine 300-30 mg tablet 1 tablet PO Q8H PRN (Reason: pain) Qty: 60 0RF ropinirole 0.5 mg tablet 0.5 mg PO QHS Qty: 90 1RF baclofen 5 mg tablet 5 mg PO Q8H Qty: 90 0RF (DME) back brace Misc See Rx Instructions .Route Qty: 1 0RF Rx Instructions: LSO back brace furosemide 40 mg tablet 40 mg PO BID Qty: 60 0RF allopurinol 100 mg tablet 100 mg PO DAILY Qty: 30 0RF pantoprazole 40 mg tablet,delayed release (DR/EC) 40 mg PO DAILY Qty: 90 0RF losartan 25 mg tablet 25 mg PO DAILY Qty: 30 0RF Follow-up/Referrals: Paul Minor MD [Primary Care Provider] - 1 Week
[2024-08-02 15:02] VITALS: BP 140/81; PULSE 92; RESP 16; O2SAT 98
== END 2024-08-02 15:03 | disposition home or self-care (01) ==
PROVIDERS: Emergency Provider Emergency Medicine; PCP Family Medicine
DX: S22.41XA Multiple fractures of ribs, right side, initial encounter for closed fracture (principal); W18.39XA Other fall on same level, initial encounter
CPT/HCPCS: 71046; 71100; 99283; A9270

== ENCOUNTER 2024-11-25 10:04 | Outpatient (CLI) | payer MEDICARE, OTHER, SELFPAY ==
--- OUTSIDE RECORDS SUMMARY | 2024-04-04 08:30 | XMS_ITS ---
Author Organization [facility] Office Address [address] [place] [address] Care Team Providers Care Health Concierge Name Role Phone Philip Rony Unavailable [phone] Problems Problem Type SNOMED Code ICD Code Onset Dates Problem Status W/U Status Risk Notes Problem Chronic kidney disease stage 3 (disorder) (953077381) Chronic kidney disease, stage 3 unspecified (N18.30) Active confirmed Problem Primary generalised osteoarthritis (193633482) Primary generalized (osteo)arthritis (M15.0) Active confirmed Problem Incontinence without sensory awareness (053771828) 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 :1940 A ge:83 Y S ex:Female Date:04/04/2024 Address:[facility] [address] , [facility] Subjective: * Chief Complaints: * * Medical [...] Treatment: * Billing Information: * Visit Code: 41811 Office Visit, Est Pt., Level 4. * Procedure Codes: * Electronic signature of Eliot Palacios MD on 11/25/2024 at 11:00 AM CDT Sign off status: Pending * Provider: Tommie PICKETT MD, F.Lidia.C.P, F.A.S.N. Date: 0 04/04/2024 Generated for Printing/Faxing/eTransmitting on: 0 11/25/2024 11:00 AM CDT
--- OUTSIDE RECORDS SUMMARY | 2024-05-02 08:15 | XMS_ITS ---
Author Organization [facility] Address [address] [place] [address] Care Team Providers Care Humanities Instructor Name Role Phone Rony Palacios Unavailable [phone] Encounters Encounter Location Date Provider Diagnosis [place] Office 2043 [facility] 15 [place] [address] 05/02/2024 Rony Palacios Plan Of Treatment No Information Progress Notes * Ally BROOKSDOB:1940 (84 yo F)Acc No.[id number]:05/02/2024 Progress Notes Patient: Ally ALFARO Provider: Tommie PICKETT MD, Michaelle.Lidia.C.P, F.A.S.N. :1940 A ge:84 Y S ex:Female Date:05/02/2024 Address:[facility] [address] [facility] Subjective: * Chief Complaints: * * Medical History: Objective: * Vitals: Assessment: Plan: * Treatment: * Billing Information: * Visit Code: * Procedure Codes: * Electronic signature of Eliot Palacios MD on 11/25/2024 at 11:00 AM CDT Sign off status: Pending * Provider: Tommie PICKETT MD, Michaelle.Lidia.C.P, F.A.S.N. Date: 05/02/2024 Generated for Printing/Faxing/eTransmitting on: 11/25/2024 11:00 AM CDT
--- OUTSIDE RECORDS SUMMARY | 2024-05-16 09:00 | XMS_ITS ---
Author Organization [facility] Address [address] [address] [place] [address] Care Team Providers Care Food Tester Name Role Phone Rony Palacios Unavailable [phone] Problems Problem Type SNOMED Code ICD Code Onset Dates Problem Status W/U Status Risk Notes Problem Secondary hyperparathyroidism of renal origin (14996125) Secondary hyperparathyroidism of renal origin (N25.81) Active confirmed Problem Proteinuria (75131173) Proteinuria, unspecified (R80.9) Active confirmed Problem Elevation of lev els of liver transaminase levels (R74.01) Active confirmed Encounters Encounter Location Date Provider Diagnosis [place] Office 2043 [facility] 15 [place] [address] 05/16/2024 Rony Palacios Chronic kidney disea se, stage 3 unspecified N18.30 ; Renal osteodystrophy N25.0 ; Essential (primary) hypertension I10 ; Hyperlipidemia, unspecified E78.5 ; Primary generalized (osteo)arthritis M15.0 ; Incontinence without sensory awareness N39.42 ; Secondary hyperparathyroidism of renal origin N25.81 ; Proteinuria, unspecified R80.9 and Elevation of levels of liver transaminase levels R74.01 Assessments Encounter Date Diagnosis (ICD Code) Assessment Notes Treatment Notes Treatment Clinical Notes Section Notes 05/16/2024 Chronic kidney disea se, stage 3 unspecified (ICD-10 - N18.30) 05/16/2024 Renal osteodystrophy (ICD-10 - N25.0) 05/16/2024 Essential (primary) hypertension (ICD-10 - I10) 05/16/2024 Hyperlipidemia, unspecified (ICD-10 - E78.5) 05/16/2024 Primary generalized (osteo)arthritis (ICD-10 - M15.0) 05/16/2024 Incontinence without sensory awareness (ICD-10 - N39.42) 05/16/2024 Secondary hyperparathyroidism of renal origin (ICD-10 - N25.81) 05/16/2024 Proteinuria, unspecified (ICD-10 - R80.9) 05/16/2024 Elevation of levels of liver transaminase levels (ICD-10 - R74.01) Plan Of Treatment No Information Progress Notes * Ally BROOKSDOB:1940 (84 yo F)Acc No.[id number]:05/16/2024 Progress Notes Patient: Ally ALFARO Provider: Tommie PICKETT MD, F.A.C.P, F.A.S.N. :1940 A ge:84 Y S ex:Female Date:05/16/2024 Address:[address] [place] [address] [address] , [facility] Subjective: * Chief Complaints: * * Medical History: Objective: * Vitals: Assessment: * Assessment: 1. C hronic kidney disease, stage 3 unspecified - N18.30 (Primary) 2 . R enal osteodystrophy - N25.0 3 . E ssential (primary) hypertension - I10 4 . H yperlipidemia, unspecified - E78.5 5 . P rimary generalized (osteo)arthritis - M15.0 6 . I ncontinence without sensory awareness - N39.42 ? 7 . S econdary hyperparathyroidism of renal origin - N25.81 8 . P roteinuria, unspecified - R80.9 9 . E levation of levels of liver transaminase levels - R74.01 Plan: * Treatment: * Billing Information: * Visit Code: 52999 Office Visit, Est Pt., Level 4. * Procedure Codes: * Electronic signature of Eliot Palacios MD on 11/25/2024 at 11:00 AM CDT Sign off status: Pending * Provider: Tommie PICKETT MD, F.A.C.P, F.A.S.N. Date: 05/16/2024 Generated for Printing/Faxing/eTransmitting on: 0 11/25/2024 11:00 AM CDT
--- OUTSIDE RECORDS SUMMARY | 2024-08-22 08:30 | XMS_ITS ---
Author Organization [facility] Address [address] [place] [address] Care Team Providers Care Casting Carrier Name Role Phone Rony Palacios Unavailable [phone] Encounters Encounter Location Date Provider Diagnosis [place] [facility] [address] [facility] [address] [place] [address] 08/22/2024 Rony Palacios Chronic kidney disea se, [...] Notes * Juan BROOKS:1940 (84 yo F)Acc No.[id number]:08/22/2024 Progress Notes Patient: Ally ALFARO Provider: Tommie PICKETT MD, F.Lidia.C.P, F.A.S.N. :1940 A ge:84 Y S ex:Female Date:08/22/2024 Address:[address] [place] [address] , [place] [address] Subjective: * Chief Complaints: * * Medical [...] Treatment: * Billing Information: * Visit Code: 69932 Office Visit, Est Pt., Level 4. * Procedure Codes: * Electronic signature of Eliot Palacios MD on 11/25/2024 at 11:00 AM CDT Sign off status: Pending * Provider: Tommie PICKETT MD, Michaelle.Lidia.Bj.P, F.A.S.N. Date: 08/22/2024 Generated for Printing/Faxing/eTransmitting on: 0 11/25/2024 11:00 AM CDT
--- OUTSIDE RECORDS SUMMARY | 2024-11-12 11:00 | XMS_ITS ---
Author Organization [facility] Address [address] [place] [address] Care Team Providers Care Information Systems Operator Name Role Phone Rony Palacios Unavailable [phone] Encounters Encounter Location Date Provider Diagnosis [place] [facility] [address] [facility] 15 [place] [address] 11/12/2024 Rony Palacios Chronic kidney disea se, [...] Notes * Juan BROOKS:1940 (84 yo F)Acc No.[id number]:11/12/2024 Patient: Ally ALFARO Provider: Tommie PICKETT MD, F.Lidia.C.P, F.A.S.N. :1940 A ge:84 Y S ex:Female Date:11/12/2024 Address:[address] [place] [address] , [place] [address] Subjective: * Chief Complaints: Objective: Assessment: * [...] Plan: * Billing Information: * Visit Code: 41466 Office Visit, Est Pt., Level 5. * Procedure Codes: * Electronic signature of Eliot Palacios MD on 11/25/2024 at 11:00 AM CDT Sign off status: Pending * Provider: Tommie PICKETT MD, Michaelle.Lidia.Bj.P, F.A.S.N. Date: 0 11/12/2024 Generated for Printing/Faxing/eTransmitting on: 11/25/2024 11:00 AM CDT
--- NOTE | 2024-11-25 10:13 | ECG_ITS ---
Test Date: 2024-11-25 10:29:20 Measurements Intervals [place] Rate: 79 P: 22 MI: 209 QRS: -19 QRSD: 109 T: 3 QT: 373 QTc: 429 Interpretive Statements SINUS RHYTHM WITH SINUS ARRHYTHMIA LOW QRS VOLTAGE IN PRECORDIAL LEADS [QRS DEFLECTION < 1.0 mV IN CHEST LEADS] MODERATE VOLTAGE CRITERIA FOR LVH, CONSIDER NORMAL VARIANT [MEETS CRITERIA IN ONE OF: R(aVL), S(V1), R(V5), R(V5/V6)+S(V1)] POOR R-WAVE PROGRESSION ABNORMAL ECG No previous ECG available for comparison Electronically Signed On 11-25-2024 12:35:53 CDT by Prince Angel M.D.
[2024-11-25 10:57] LABS: INR 1.0; Prothrombin Time 13.0 Seconds (11.1-14.7)
[2024-11-25 10:58] LABS: Partial Thromboplastin Time 32.9 Seconds (22.3-36.8)
--- OUTSIDE RECORDS SUMMARY | 2024-11-25 11:00 | XMS_ITS | Clinical Summary ---
Author Organization [facility] Address [address] [place] [address] Care Team Providers Care Customer Liaison Name Role Phone Justin Salmeron MD Primary Care Provider [phone] Allergies Active Allergy Reactions Criticality Noted Date [...] (Zostavax, PF,) 19,400 unit/0.65 mL injection zostavax 02340 unt/0.65ml solr Active aspirin 81 mg enteric [...] Encounters Date Type Department Care Team Description 10/23/2024 Telephone [facility] [address] [facility] Medical Office Building [address] [place] [address] Juliane Burris MD from Last [...] on file Legal Sex Female 6:43 PM SCRIP CLERK Gender Identity Not on file Sexual Orientation Not on file Obstetrics History Last Filed Vital Signs Vital Sign Reading Time Taken Comments Blood Pressure 113/55 03/31/2024 12:30 PM SCRIP CLERK Pulse 86 03/31/2024 12:30 PM SCRIP CLERK Temperature 36.6 C (97.8 F) 03/31/2024 10:25 AM SCRIP CLERK Respiratory Rate 10 03/31/2024 12:00 PM SCRIP CLERK Oxygen Saturation 98% 03/31/2024 12:30 PM SCRIP CLERK Inhaled Oxygen Concentration - - Weight 59.9 kg (132 lb) 04/15/2024 10:25 AM SCRIP CLERK Height 149.9 cm (4' 11) 04/15/2024 10:25 AM SCRIP CLERK Body Mass Index 26.66 04/15/2024 10:25 AM SCRIP CLERK Plan of Treatment Health Maintenance Due Date Last Done Comments Depression Screening 1940 DTaP/Tdap/Td Vaccine (1 - Tdap) 1952 Hepatitis B Screening 1959 Well Visit 65+ 2006 Zoster Vaccine (2 of 3) 10/20/2014 08/25/2014 Pneumococcal vaccine 65+ (2 of 2 - PCV) 12/28/2016 12/29/2015 Osteoporosis Screening-Bone Density Scan 09/12/2024 09/12/2022, 03/10/2022, 09/20/2021 Influenza Vaccine (#1) 2024 , 04/03/2017, 04/03/2017, Additional history exists Fall Risk Assessment 03/31/2025 03/31/2024 Medical Devices Implanted Type Area Carpenter Supervisor Wooden Ship Device Identifier Shelf Expiration Date Model / Serial / Lot [place] [employer] [id number] Vertaplex Hv Autoplex Without Needle Delivery System Kit Bone - [id number] Implanted:Qty: 1 on 03/31/2019 at [facility] [place] [facility] 02/01/2021 [id number] / / [id number] Procedures Procedure Name Priority Date/Time Associated Diagnosis [...] Bone mineral density was performed on a [employer] Densitometer. Based on machine cross-calibration and [...] by the International Society of Clinical Densitometry. [id number] Juliane Burris MD IMG DXA PROCEDURES Final Resu lt from Last 3 Months or Most Recently Relevant to Health Maintenance Insurance [place] [address] [address] [employer] [facility] [place] [address] [place] [address] [facility] [place] [address] [facility] MEDICARE ADVANTAGE [facility] MEDICARE Advance Directives For more information, please contact: [phone] * Full Code (Latest Code Status on File) Date Activated Date Inactivated Comments 12/14/2020 10:28 AM 12/14/2020 4:20 PM * Full Code Date Activated Date Inactivated Comments 12/14/2020 10:28 AM 12/14/2020 10:28 AM Care Teams Customer Liaison Relationship Specialty Start Date End Date Justin Salmeron MD PCP - General 12/21/20
--- OUTSIDE RECORDS SUMMARY | 2024-11-25 11:00 | XMS_ITS | Encounter Summary ---
Author Organization [facility] Address [address] [place] [address] Care Team Providers Care Tankage Grinder Name Role Phone Jagdish Hay MD Primary Care Provider [phone] Justin Salmeron MD Primary Care Provider [phone] Encounter Details Date Type Department Care Team (Late st Contact Info) Description 03/10/2019 Telephone [facility] Radiology [address] [place] [address] Brenda Steel, RN Social History Tobacco Use Types Packs/Day Years Used Date Smoking Tobacco: Never Assessed Comments Unknown Sex and Gender Information Value Date Recorded Sex Assigned at Not on file Legal Sex Female 6:43 PM PEG DRIVER Gender Identity Not on file Sexual Orientation Not on file documented as of this encounter Plan of Treatment Not on file documented as of this encounter Visit Diagnoses Not on filedocumented in this encounter Care Teams Tankage Grinder Relationship Specialty Start Date End Date Jagdish Hay MD PCP - General 11/03/16 12/20/20 Justin Salmeron MD PCP - General 12/21/20 documented as of this encounter
--- OUTSIDE RECORDS SUMMARY | 2024-11-25 11:00 | XMS_ITS | Patient Health Record ---
Author Organization [facility] Address [address] [place] [address] Care Team Providers Care Emblem Maker Name Role Phone Rony Palacios Unavailable [phone] Reason For Referral No Information Medications Medication SIG (Take, Route, Frequency, Duration) Notes Start Date End Date Status Furosemide 40 MG Take 1 tablet by mary th twice daily; Duration: 90 Active Allopurinol 100 MG Take 1 tablet by mary th once daily; Duration: 90 Active Losartan Potassium 25 MG Take 1 tablet b y mouth once daily; Duration: 90 Active Calcitriol 0.25 MCG Take 1 capsule by mo uth once daily; Duration: 90 days Active Problems Problem Type SNOMED Code ICD Code Onset Dates Problem Status W/U Status Risk Notes Problem Hyperlipidemia (38742765) Hyperlipidemia, unspecified (E78.5) Active confirmed Problem Essential hypertension (99114518) Essential (primary) hypertension (I10) Active confirmed Problem Primary generalised osteoarthritis (530904968) Primary generalized (osteo)arthritis (M15.0) Active confirmed Problem Renal osteodystrophy (88596405) Renal osteodystrophy (N25.0) Active confirmed Problem Secondary hyperparathyroidism of renal origin (83412060) Secondary hyperparathyroidism of renal origin (N25.81) Active confirmed Problem Incontinence without sensory awareness (417200816) Incontinence without sensory awareness (N39.42) Active confirmed Problem Proteinuria (44362292) Proteinuria, unspecified (R80.9) Active confirmed Problem Chronic kidney disease stage 3 (disorder) (771958049) Chronic kidney disease, stage 3 unspecified (N18.30) Active confirmed Problem Elevation of lev els of liver transaminase levels (R74.01) Active confirmed Encounters Encounter Location Date Provider Diagnosis [place] [facility] [address] [facility] [address] [place] [address] 04/04/2024 Rony Palacios Chronic kidney disea se, stage 3 unspecified N18.30 ; Essential (primary) hypertension I10 ; Renal osteodystrophy N25.0 ; 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 ; Primary generalized (osteo)arthritis M15.0 and Incontinence without sensory awareness N39.42 [place] [facility] [address] [place] [address] 05/16/2024 Rony Palacios Chronic kidney disea se, stage 3 unspecified N18.30 ; Renal osteodystrophy N25.0 ; Essential (primary) hypertension I10 ; Hyperlipidemia, unspecified E78.5 ; Primary generalized (osteo)arthritis M15.0 ; Incontinence without sensory awareness N39.42 ; Secondary hyperparathyroidism of renal origin N25.81 ; Proteinuria, unspecified R80.9 and Elevation of levels of liver transaminase levels R74.01 [place] [facility] [address] [place] [address] 08/22/2024 Rony Palacios Chronic kidney disea se, stage 3 unspecified N18.30 ; Renal osteodystrophy N25.0 ; Essential (primary) hypertension I10 ; Hyperlipidemia, unspecified E78.5 ; Primary generalized (osteo)arthritis M15.0 ; Incontinence without sensory awareness N39.42 ; Secondary hyperparathyroidism of renal origin N25.81 ; Proteinuria, unspecified R80.9 and Elevation of levels of liver transaminase levels R74.01 [place] [facility] [address] [place] [address] 11/12/2024 Rony Palacios Chronic kidney disea se, stage 3 unspecified N18.30 ; Renal osteodystrophy N25.0 ; Essential (primary) hypertension I10 ; Hyperlipidemia, unspecified E78.5 ; Primary generalized (osteo)arthritis M15.0 ; Incontinence without sensory awareness N39.42 ; Secondary hyperparathyroidism of renal origin N25.81 ; Proteinuria, unspecified R80.9 and Elevation of levels of liver transaminase levels R74.01 [facility] [address] [place] [address] 05/14/2024 Rony Palacios [place] [facility] [address] [address] 05/16/2024 Rony Palacios [facility] [address] [place] [address] 05/19/2024 Rony Palacios Assessments Encounter Date Diagnosis (ICD Code) Assessment Notes Treatment Notes Treatment Clinical Notes Section Notes 05/16/2024 Chronic kidney disea se, stage 3 unspecified (ICD-10 - N18.30) 08/22/2024 Chronic kidney disea se, stage 3 unspecified (ICD-10 - N18.30) 11/12/2024 Chronic kidney disea se, stage 3 unspecified (ICD-10 - N18.30) 04/04/2024 Essential (primary) hypertension (ICD-10 - I10) 04/04/2024 Chronic kidney disea se, stage 3 unspecified (ICD-10 - N18.30) 04/04/2024 Renal osteodystrophy (ICD-10 - N25.0) 11/12/2024 Renal osteodystrophy (ICD-10 - N25.0) 08/22/2024 Renal osteodystrophy (ICD-10 - N25.0) 05/16/2024 Renal osteodystrophy (ICD-10 - N25.0) 05/16/2024 Essential (primary) hypertension (ICD-10 - I10) 08/22/2024 Essential (primary) hypertension (ICD-10 - I10) 11/12/2024 Essential (primary) hypertension (ICD-10 - I10) 04/04/2024 Hyperuricemia withou t signs of inflammatory arthritis and tophaceous disease (ICD-10 - E79.0) 11/12/2024 Hyperlipidemia, unspecified (ICD-10 - E78.5) 04/04/2024 Primary generalized (osteo)arthritis (ICD-10 - M15.0) 08/22/2024 Hyperlipidemia, unspecified (ICD-10 - E78.5) 05/16/2024 Hyperlipidemia, unspecified (ICD-10 - E78.5) 05/16/2024 Primary generalized (osteo)arthritis (ICD-10 - M15.0) 08/22/2024 Primary generalized (osteo)arthritis (ICD-10 - M15.0) 11/12/2024 Primary generalized (osteo)arthritis (ICD-10 - M15.0) 04/04/2024 Incontinence without sensory awareness (ICD-10 - N39.42) 11/12/2024 Incontinence without sensory awareness (ICD-10 - N39.42) 08/22/2024 Incontinence without sensory awareness (ICD-10 - N39.42) 05/16/2024 Incontinence without sensory awareness (ICD-10 - N39.42) 05/16/2024 Secondary hyperparathyroidism of renal origin (ICD-10 - N25.81) 08/22/2024 Secondary hyperparathyroidism of renal origin (ICD-10 - N25.81) 11/12/2024 Secondary hyperparathyroidism of renal origin (ICD-10 - N25.81) 11/12/2024 Proteinuria, unspecified (ICD-10 - R80.9) 08/22/2024 Proteinuria, unspecified (ICD-10 - R80.9) 05/16/2024 Proteinuria, unspecified (ICD-10 - R80.9) 05/16/2024 Elevation of levels of liver transaminase levels (ICD-10 - R74.01) 08/22/2024 Elevation of levels of liver transaminase levels (ICD-10 - R74.01) 11/12/2024 Elevation of levels of liver transaminase levels (ICD-10 - R74.01) Plan Of Treatment No Information
[2024-11-25 11:26] LABS: Anion Gap 7 mmol/L (4-12); Blood Urea Nitrogen 33 mg/dL (7-17); Calcium 9.2 mg/dL (8.4-10.2); Carbon Dioxide 25 mmol/L (22-30); Chloride 102 mmol/L (98-107); Estimated Glomerular Filt Rate 55; Glucose 101 mg/dL (65-110); Potassium 3.7 mmol/L (3.4-5.0); Sodium 134 mmol/L (137-145)
== END 2024-11-25 10:05 | disposition home or self-care (01) ==
LOC: ANHSURGERY 10:10
PROVIDERS: Anesthesiology; PCP Student in an Organized Health Care Education/Training Program; Visit Provider Orthopaedic Surgery
DX: I12.9 Hypertensive chronic kidney disease with stage 1 through stage 4 chronic kidney disease, or unspecified chronic kidney disease (principal); N18.9 Chronic kidney disease, unspecified; E78.5 Hyperlipidemia, unspecified
CPT/HCPCS: 36415; 80048; 85610; 85730; 93005

== ENCOUNTER 2024-12-04 00:44 | Day surgery (SDC) | payer MEDICARE, OTHER, SELFPAY ==
--- OUTSIDE RECORDS SUMMARY | 2024-04-04 08:30 | XMS_ITS ---
Author Organization [facility] Office Address [address] [place] [address] Care Team Providers Care Venue Coordinator Name Role Phone Philip Rony Unavailable [phone] Problems Problem Type SNOMED Code ICD Code Onset Dates Problem Status W/U Status Risk Notes Problem Chronic kidney disease stage 3 (disorder) (442612393) Chronic kidney disease, stage 3 unspecified (N18.30) Active confirmed Problem Primary generalised osteoarthritis (052724526) Primary generalized (osteo)arthritis (M15.0) Active confirmed Problem Incontinence without sensory awareness (355542635) Incontinence without sensory awareness (N39.42) Active confirmed Encounters Encounter Location Date Provider Diagnosis [facility] [address] [facility] [address] [place] [address] 04/04/2024 Rony Palacios Chronic kidney disea se, stage 3 unspecified N18.30 ; Essential (primary) hypertension I10 ; Renal osteodystrophy N25.0 ; 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 ; Primary generalized (osteo)arthritis M15.0 and Incontinence without sensory awareness N39.42 Assessments Encounter Date Diagnosis (ICD Code) Assessment Notes Treatment Notes Treatment Clinical Notes Section Notes 04/04/2024 Chronic kidney disease, stage 3 unspecified (ICD-10 - N18.30) 04/04/2024 Essential (primary) hypertension (ICD-10 - I10) 04/04/2024 Renal osteodystrophy (ICD-10 - N25.0) 04/04/2024 Hyperuricemia without signs of inflammatory arthritis and tophaceous disease (ICD-10 - E79.0) 04/04/2024 Primary generalized (osteo)arthritis (ICD-10 - M15.0) 04/04/2024 Incontinence without sensory awareness (ICD-10 - N39.42) Plan Of Treatment No Information Progress Notes * Juan BROOKS:1940 (84 yo F)Acc No.[id number]:04/04/2024 Progress Notes Patient: Ally ALFARO Provider: Tommie PICKETT MD, F.Lidia.C.P, F.A.S.N. :1940 A ge:83 Y S ex:Female Date:04/04/2024 Address:[facility] [address] , [id number] Subjective: * Chief Complaints: * * Medical History: Objective: * Vitals: Assessment: * Assessment: 1. C hronic kidney disease, stage 3 unspecified - N18.30 (Primary) 2 . E ssential (primary) hypertension - I10 3 . R enal osteodystrophy - N25.0 4 . H yperuricemia without signs of inflammatory arthritis and tophaceous disease - E79.0 5. P rimary generalized (osteo)arthritis - M15.0 6 . I ncontinence without sensory awareness - N39.42 Plan: * Treatment: * Billing Information: * Visit Code: 19940 Office Visit, Est Pt., Level 4. * Procedure Codes: * Electronic signature of Eliot Palacios MD on 12/04/2024 at 12:46 AM CDT Sign off status: Pending * Provider: Tommie PICKETT MD, F.Lidia.C.P, F.A.S.N. Date: 0 04/04/2024 Generated for Printing/Faxing/eTransmitting on: 12:46 AM CDT
--- OUTSIDE RECORDS SUMMARY | 2024-05-02 08:15 | XMS_ITS ---
Author Organization [facility] Address [address] [place] [address] Care Team Providers Care Sewer Pipe Sorter Name Role Phone Rony Palacios Unavailable [phone] Encounters Encounter Location Date Provider Diagnosis [place] Office 2043 [facility] 15 [place] [address] 05/02/2024 Rony Palacios Plan Of Treatment No Information Progress Notes * Ally BROOKSDOB:1940 (84 yo F)Acc No.[id number]:05/02/2024 Progress Notes Patient: Ally ALFARO Provider: Tommie PICKETT MD, Michaelle.Lidia.C.P, F.A.S.N. :1940 A ge:84 Y S ex:Female Date:05/02/2024 Address:[facility] [address] [facility] Subjective: * Chief Complaints: * * Medical History: Objective: * Vitals: Assessment: Plan: * Treatment: * Billing Information: * Visit Code: * Procedure Codes: * Electronic signature of Eliot Palacios MD on 12/04/2024 at 12:45 AM CDT Sign off status: Pending * Provider: Tommie PICKETT MD, Michaelle.Lidia.C.P, F.A.S.N. Date: 0 05/02/2024 Generated for Printing/Faxing/eTransmitting on: 12:45 AM CDT
--- OUTSIDE RECORDS SUMMARY | 2024-05-16 09:00 | XMS_ITS ---
Author Organization [facility] Address [address] [address] [place] [address] Care Team Providers Care Enterprise Sales Person Name Role Phone Rony Palacios Unavailable [phone] Problems Problem Type SNOMED Code ICD Code Onset Dates Problem Status W/U Status Risk Notes Problem Secondary hyperparathyroidism of renal origin (00433914) Secondary hyperparathyroidism of renal origin (N25.81) Active confirmed Problem Proteinuria (92150974) Proteinuria, unspecified (R80.9) Active confirmed Problem Elevation of lev els of liver transaminase levels (R74.01) Active confirmed Encounters Encounter Location Date Provider Diagnosis [place] Office 2043 [facility] 15 [place] [address] 05/16/2024 Rony Palacios Chronic kidney disea se, [...] Treatment No Information Progress Notes * Ally BACONDOB:1940 (84 yo F)Acc No.[id number]:05/16/2024 Progress Notes Patient: Ally ALFARO Provider: Tommie PICKETT MD, F.A.C.P, F.A.S.N. :1940 A ge:84 Y S ex:Female Date:05/16/2024 Address:[address] [place] [address] [place] , [facility] Subjective: * Chief Complaints: * * Medical [...] Treatment: * Billing Information: * Visit Code: 44183 Office Visit, Est Pt., Level 4. * Procedure Codes: * Electronic signature of Eliot Palacios MD on 12/04/2024 at 12:46 AM CDT Sign off status: Pending * Provider: Tommie PICKETT MD, F.A.C.P, F.A.S.N. Date: 0 05/16/2024 Generated for Printing/Faxing/eTransmitting on: 1 12:46 AM CDT
--- OUTSIDE RECORDS SUMMARY | 2024-08-22 08:30 | XMS_ITS ---
Author Organization [facility] Address [address] [place] [address] Care Team Providers Care Kiln Hand Name Role Phone Rony Palacios Unavailable [phone] Encounters Encounter Location Date Provider Diagnosis [place] [facility] [address] [facility] [address] [place] [address] 08/22/2024 Rony Palacios Chronic kidney disea se, stage [...] Treatment Notes Treatment Clinical Notes Section Notes 08/22/2024 Chronic kidney disea se, stage 3 unspecified (ICD-10 - N18.30) 08/22/2024 Renal osteodystrophy (ICD-10 - N25.0) 08/22/2024 Essential (primary) hypertension (ICD-10 - I10) 08/22/2024 Hyperlipidemia, unspecified (ICD-10 - E78.5) 08/22/2024 Primary generalized (osteo)arthritis (ICD-10 - M15.0) 08/22/2024 Incontinence without sensory awareness (ICD-10 - N39.42) 08/22/2024 Secondary hyperparathyroidism of renal origin (ICD-10 - N25.81) 08/22/2024 Proteinuria, unspecified (ICD-10 - R80.9) 08/22/2024 Elevation of levels of liver transaminase levels (ICD-10 - R74.01) Plan Of Treatment No Information Progress Notes * Juan BROOKS:1940 (84 yo F)Acc No.[id number]:08/22/2024 Progress Notes Patient: Ally ALFARO Provider: Tommie PICKETT MD, F.Lidia.C.P, F.A.S.N. :1940 A ge:84 Y S ex:Female Date:08/22/2024 Address:[address] [place] [address] , [place] [address] Subjective: * Chief Complaints: * * Medical [...] Treatment: * Billing Information: * Visit Code: 19613 Office Visit, Est Pt., Level 4. * Procedure Codes: * Electronic signature of Eliot Palacios MD on 12/04/2024 at 12:46 AM CDT Sign off status: Pending * Provider: Tommie PICKETT MD, Michaelle.Lidia.Bj.P, F.A.S.N. Date: 0 08/22/2024 Generated for Printing/Faxing/eTransmitting on: 1 12:46 AM CDT
--- OUTSIDE RECORDS SUMMARY | 2024-11-12 11:00 | XMS_ITS ---
Author Organization [facility] Address [address] [place] [address] Care Team Providers Care Web Operations Lead Name Role Phone Rony Palacios Unavailable [phone] Encounters Encounter Location Date Provider Diagnosis [place] [facility] [address] [facility] [address] [place] [address] 11/12/2024 Rony Palacios Chronic kidney disea se, stage [...] Treatment Notes Treatment Clinical Notes Section Notes 11/12/2024 Chronic kidney disea se, stage 3 unspecified (ICD-10 - N18.30) 11/12/2024 Renal osteodystrophy (ICD-10 - N25.0) 11/12/2024 Essential (primary) hypertension (ICD-10 - I10) 11/12/2024 Hyperlipidemia, unspecified (ICD-10 - E78.5) 11/12/2024 Primary generalized (osteo)arthritis (ICD-10 - M15.0) 11/12/2024 Incontinence without sensory awareness (ICD-10 - N39.42) 11/12/2024 Secondary hyperparathyroidism of renal origin (ICD-10 - N25.81) 11/12/2024 Proteinuria, unspecified (ICD-10 - R80.9) 11/12/2024 Elevation of levels of liver transaminase levels (ICD-10 - R74.01) Plan Of Treatment No Information Progress Notes * Juan BROOKS:1940 (84 yo F)Acc No.[id number]:11/12/2024 Patient: Ally ALFARO Provider: Tommie PICKETT MD, F.Lidia.C.P, F.A.S.N. :1940 A ge:84 Y S ex:Female Date:11/12/2024 Address:[address] [place] [address] , [place] [address] Subjective: * Chief Complaints: Objective: Assessment: * Assessment: 1. C hronic kidney [...] liver transaminase levels - R74.01 Plan: * Billing Information: * Visit Code: 50944 Office Visit, Est Pt., Level 5. * Procedure Codes: * Electronic signature of Eliot Palacios MD on 12/04/2024 at 12:46 AM CDT Sign off status: Pending * Provider: Tommie PICKETT MD, Michaelle.Lidia.Bj.P, F.A.S.N. Date: 0 11/12/2024 Generated for Printing/Faxing/eTransmitting on: 12:46 AM CDT
[2024-11-21 14:40] VITALS: BMI 27.1
--- NOTE | 2024-11-21 14:53 | PC.NURSE ---
[facility] has started construction of its new state of the art ER which will open Spring 2026. With this, we anticipate parking may be a challenge for some our surgical patients and families. Parking spaces are limited but are available for all Surgical, obstetrics, and ER patients sharing this lot. If you arrive and find you are having a hard time finding a parking space, please note that we understand the challenges, please drive around the hospital and park near Hospital Entrance 1. When you enter this entrance, you can ask a volunteer to direct or take you back to the surgical waiting area to check in. We appreciate everyone?s understanding of these expected challenges while we build for your future. Report to the Outpatient Waiting Room, entrance under the green pavilion located off [address], at time _0600am on date __12/04/24 . Planned Procedure Time: __0730am .? Time changes happen often and if your time is changed the preop area will call you the afternoon before. - You and your visitor will be asked to self-screen and do not enter if you have any COVID symptoms. Please call surgeon if you need to reschedule. - A mask is optional within the hospital at this time. Patients may have clear liquids (water, carbonated beverages, clear teas, apple juice) until 3 hours prior to surgery with a maximum of 20 ounces. - No food from midnight until time of surgery and no smoking, or chewing tobacco (or any form of nicotine). No chewing gum, candy or mints.( 04:30am) . Take only the following medications with a SIP of water on the morning of surgery: Tylenol if needed DO NOT STOP ANY OF YOUR OTHER PRESCRIPTION MEDICATIONS PRIOR TO SURGERY EXCEPT THE FOLLOWING Hold all vitamins and supplements for 3 days per anesthesiologist. Date if last dose 11/30/24 Medications to discontinue per physician HOLD ASPIRIN OR NSAIDS for [address] Markham. Date to take last dose____11/26/24 Please no make-up, nail german, hairspray, perfume, deodorant, or body powder the day of surgery.? No jewelry (including any body piercings) or valuables the day of surgery, leave them at home.? Please take a shower or bath the night before, or the morning of, surgery with an antibacterial soap.?GOLD DIAL Wear comfortable, loose fitting clothing.? . - Jewelry must be removed prior to entering the operating room.? Rings and piercings that are not removed may be cut off. - The hospital will not accept responsibility for valuables.? - Please leave all valuables, including medications, at home the day of surgery. If you are going home after surgery, a licensed school bus driver/custodian must drive you home.? - NO public transportation without another adult if you receive anesthesia. - We recommend that an adult stay with you for 24 hours following discharge. - We also recommend that you do not drive, make important decision, drink alcoholic beverages, or take any drugs that were not prescribed by your health care provider for at least 24 hours after your discharge time. Follow any additional instructions given to you from your surgeon. Telephone instructions given to Patient and asked if any additional questions and then verbalized understanding. Patient advised to call surgeon office or pre surgery nurse liaison [phone] if any additional questions.
--- NOTE | 2024-12-02 16:33 | PM.IMHP ---
H&P: HPI History of Present Illness Date/Time: 12/02/24 16:33 Chief Complaint: Left hip pain Narrative: 84-year-old woman who fell and sustained left hip intertrochanteric fracture January 2023. Treated with trochanteric nail with lag screw fixation. Has increased in left hip pain and stiffness. Radiographs show migration of the hip screw. Presents for operative treatment. Review of Systems Constitutional: Constitutional: Denies fever(s) Eyes: Eyes: Denies blurry vision ENT: Reports Normal hearing present Cardiovascular: Cardiovascular: Denies chest pain and Denies dyspnea Respiratory: Respiratory: Denies dyspnea and Denies wheezing Gastrointestinal: Gastrointestinal: Denies abdominal pain Genitourinary: Genitourinary: Denies urinary urgency Musculoskeletal: Musculoskeletal: Reports as per HPI and Denies numbness Integumentary/Breasts: Skin/Breast: Denies changing lesions and Denies sores Neurologic: Reports Normal hearing present, Denies behavioral changes, Denies confusion, Denies numbness and Denies convulsions Psychiatric: Psychiatric: Denies behavioral changes, Denies confusion and Denies hallucinations Endocrine: Endocrine: Denies heat intolerance Hematologic/Lymphatic: Hematologic/Lymphatic: Denies easy bleeding Allergic/Immunologic: Allergic/Immunologic: Denies wheezing PMFSH Past Medical History Medical History T10 vertebral fracture Left hip pain DVT (deep venous thrombosis) Trochanteric bursitis, left hip Painful orthopaedic hardware Arthritis of knee, left Dysphagia Chronic kidney disease, stage 3 Gastroesophageal reflux disease Hypertension Osteopenia Hyperlipidemia Closed intertrochanteric fracture of left femur Fall from ladder Surgical History Surgical History History of bilateral carpal tunnel release History of repair of left rotator cuff History of breast biopsy History of lumbar fusion History of vertebroplasty History of cataract extraction History of hysterectomy Family History Family History Other Family history non-contributory Social History Social History Social History: Surrogate medical decision maker: Jose Brooks, spouse. Code status: Modified code, no intubation. Okay with CPR and medication. Smoking status: Never smoker Second hand tobacco smoke exposure: No Alcohol intake: never Substance use: never Substance use type: does not use Do You Feel Safe in your Home?: Yes Lack of Transportation: No Lack of Food: Never True Current Housing: I Have Housing Concerned About Future Housing: No Difficulty Paying Gas/Electric Bills: No Difficulty Paying for Meds: No Currently Unemployed: YES Education: Don't Know Difficulty w/ Childcare or Family Care: No Living arrangements: with family Additional living arrangements comments: Occupation/Education: retired Gender identity (if verbalized by the patient): Female Sexual Orientation (if Verbalized by the Patient): Straight or Heterosexual Spiritual care concerns: No Meds Home Medications and Allergies Home Medications ?Medication ?Instructions ?Recorded ?Confirmed ?Type allopurinol 100 mg tablet 100 mg PO DAILY #30 tabs 02/13/23 11/21/24 Rx furosemide 40 mg tablet 40 mg PO BID #60 tabs 02/13/23 11/21/24 Rx losartan 25 mg tablet 25 mg PO DAILY #30 tabs 02/13/23 11/21/24 Rx calcitriol 0.25 mcg capsule 0.25 mcg PO DAILY 05/08/23 11/21/24 History ergocalciferol (vitamin D2) 1,250 1,250 mcg PO WEEKLY 05/08/23 11/21/24 History mcg (50,000 unit) capsule ajkvwepo-njlhnnw-pltl-lutein tablet 1 tablet PO DAILY 05/08/23 11/21/24 History back brace #1 ea 02/22/24 11/21/24 Rx baclofen 5 mg tablet 5 mg PO Q8H #90 tabs 05/05/24 11/21/24 Rx ropinirole 0.5 mg tablet 0.5 mg PO QHS #90 tabs 05/05/24 11/21/24 Rx azelastine 137 mcg (0.1 %) nasal 137 mcg (0.137 mL) intranasal Q12H 11/12/24 11/21/24 Rx spray #30 mL naproxen sodium 220 mg capsule 220 mg PO PRN PRN pain 11/21/24 11/21/24 History (Aleve) Allergies Allergy/AdvReac Type Severity Reaction Status Date / Time No Known Allergies Allergy Verified 11/21/24 14:34 Exam Const: General: healthy appearing; No in distress or confusion Orientation/consciousness: oriented to person, oriented to place, oriented to time and No confusion HENMT: Head: normal to inspection, normocephalic and atraumatic Eyes: Conjunctivae: conjunctivae normal Sclera: sclerae normal Neck: Neck: supple and nontender Chest: Chest palpation & inspection: normal inspection of the chest Resp: Effort & Inspection: normal respiratory effort and no audible wheezes Cardio: Rate: regular rate Rhythm: regular rhythm : General: Yes deferred Skin: General skin exam: no rashes or lesions noted Neuro: General: oriented to person, oriented to place, oriented to time and No confusion Cranial nerves: Yes Normal hearing present Extrem: General: capillary refill normal Right upper extremity: normal to inspection Left upper extremity: normal to inspection Right lower extremity: normal to inspection Left lower extremity: hip/thigh Details: tenderness Location: of the hip Location: laterally and over the great trochanter, swelling Location: of the hip and abnormal ROM Details: pain with passive ROM Details: with flexion, with internal rotation and with external rotation and with range as follows ( Hip flexion 70, abduction 30, adduction 10), ankle (no calf tenderness) Details: normal ROM (Able to flex/ extend ankle) and foot Details: toes with normal ROM (Moves all toes), vascular exam Details: dorsalis pedis pulse present and normal capillary refill and motor-sensory exam light-touch normal; no tenderness Psych: Affect: normal affect Assessment and Plan Assessment and plan (1) Closed intertrochanteric fracture of left femur: Qualifiers: Encounter type: sequela Fracture alignment: displaced Qualified Code(s): S72.142S - Displaced intertrochanteric fracture of left femur, sequela Code(s): S72.142A - Displaced intertrochanteric fracture of left femur, initial encounter for closed fracture Status: Acute (2) Painful orthopaedic hardware: Code(s): T84.84XA - Pain due to internal orthopedic prosthetic devices, implants and grafts, initial encounter Status: Acute Assessment and Plan: 2 years left hip fracture. Radiographs show good healing. She has quite a bit of hip pain and problems with ambulation from the hardware. We discussed removal. Discussed nonoperative and operative treatment options with the patient. Risks and benefits of each as well as alternatives were reviewed. All of the patient's questions were answered. The risks of surgery reviewed including but not limited to: Neurovascular damage, wound complication, infection, blood clot, pulmonary embolus, stroke, myocardial infarction, and anesthetic risks up to and including . Continued pain and possible dysfunction were explained. Specific risks of the procedure including later recurrence of deformity. No guarantees were offered. If hardware used, discussed risk of failure/ breakage and possible need for removal. If complications occur, the patient understands the need for further treatment, possible further surgery. Patient verbalizes understanding and wishes to proceed. PLAN: Removal hardware left hip
[2024-12-04] VITALS (9 sets, daily range): BP systolic 88–133; BP diastolic 41–94; PULSE 82–90; RESP 12–18; TEMP 36.1–36.7; O2SAT 99–100
--- NOTE | ~2024-12-04 | XR_ITS ---
EXAMINATION: XR surgery orthopedic DATE: 12/04/2024 08:29 INDICATION: Left hip orthopedic instrumentation removal TECHNIQUE: 2 fluoroscopic images of the left hip were obtained during procedure performed by Dr. Markham. Radiologist was not present for the imaging or procedure. The amount of fluoroscopy time used during this procedure was 0.5 minutes. Total DAP was 2.118 Gycm^2. COMPARISON: 10/28/2024 FINDINGS: Old healed fracture deformity at the proximal left femur. An antegrade intramedullary pérez remains in place. The femoral neck dynamic compression screws been removed. There are couple residual curvilinear fractured spring fragments from the dynamic compression screw at the right femoral head and neck and an additional tiny fragment in the soft tissues along the lateral margin of the greater trochanter. IMPRESSION: 1. Old healed proximal left femoral fracture with fluoroscopy utilized for removal of the femoral neck dynamic compression screw component of the prior internal fixation instrumentation. The antegrade intramedullary pérez and a few small residual sprain fragments remain unchanged. See procedure note for further detail. Reviewed, dictated and finalized at location A. IMPRESSION: 1. Old healed proximal left femoral fracture with fluoroscopy utilized for lexis june of the femoral neck dynamic compression screw component of the prior international logistics manager al fixation instrumentation. The antegrade intramedullary pérez and a few small r esidual sprain fragments remain unchanged. See procedure note for further amita perkins
--- OUTSIDE RECORDS SUMMARY | 2024-12-04 00:46 | XMS_ITS | Patient Health Record ---
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) Active confirmed Problem Renal osteodystrophy (45532747) Renal osteodystrophy (N25.0) Active confirmed Problem Secondary hyperparathyroidism of renal origin (40890991) Secondary hyperparathyroidism of renal origin (N25.81) Active confirmed Problem Incontinence without sensory awareness (099807111) Incontinence without sensory awareness (N39.42) Active confirmed Problem Proteinuria (64261911) Proteinuria, unspecified (R80.9) Active confirmed Problem Chronic kidney disease stage 3 (disorder) (178989698) Chronic kidney disease, stage 3 unspecified (N18.30) Active confirmed Problem Elevation of lev els of liver transaminase levels (R74.01) Active confirmed Encounters Encounter Location Date Provider Diagnosis [place] [facility] [address] [facility] [address] [place] [address] 04/04/2024 Rony Palacios Chronic kidney disea se, stage 3 unspecified N18.30 ; Essential (primary) hypertension I10 ; Renal osteodystrophy N25.0 ; 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 ; Primary generalized (osteo)arthritis M15.0 and Incontinence without sensory awareness N39.42 [place] [facility] [address] [place] [address] 05/16/2024 Rony Palacios Chronic kidney disea se, stage 3 unspecified N18.30 ; Renal osteodystrophy N25.0 ; Essential (primary) hypertension I10 ; Hyperlipidemia, unspecified E78.5 ; Primary generalized (osteo)arthritis M15.0 ; Incontinence without sensory awareness N39.42 ; Secondary hyperparathyroidism of renal origin N25.81 ; Proteinuria, unspecified R80.9 and Elevation of levels of liver transaminase levels R74.01 [place] [facility] [address] [place] [address] 08/22/2024 Rony Palacios Chronic kidney disea se, stage 3 unspecified N18.30 ; Renal osteodystrophy N25.0 ; Essential (primary) hypertension I10 ; Hyperlipidemia, unspecified E78.5 ; Primary generalized (osteo)arthritis M15.0 ; Incontinence without sensory awareness N39.42 ; Secondary hyperparathyroidism of renal origin N25.81 ; Proteinuria, unspecified R80.9 and Elevation of levels of liver transaminase levels R74.01 [place] [facility] [address] [place] [address] 11/12/2024 Rony Palacios Chronic kidney disea se, stage 3 unspecified N18.30 ; Renal osteodystrophy N25.0 ; Essential (primary) hypertension I10 ; Hyperlipidemia, unspecified E78.5 ; Primary generalized (osteo)arthritis M15.0 ; Incontinence without sensory awareness N39.42 ; Secondary hyperparathyroidism of renal origin N25.81 ; Proteinuria, unspecified R80.9 and Elevation of levels of liver transaminase levels R74.01 Tony [facility] [address] [place] [address] 05/14/2024 Rony Palacios [place] [facility] [address] [address] 05/16/2024 Rony Palacios [facility] [address] [place] [address] 05/19/2024 Rony Palacios Assessments Encounter Date Diagnosis (ICD Code) Assessment Notes Treatment Notes Treatment Clinical Notes Section Notes 04/04/2024 Essential (primary) hypertension (ICD-10 - I10) 04/04/2024 Chronic kidney disea se, stage 3 unspecified (ICD-10 - N18.30) 05/16/2024 Chronic kidney disea se, stage 3 unspecified (ICD-10 - N18.30) 08/22/2024 Chronic kidney disea se, stage 3 unspecified (ICD-10 - N18.30) 11/12/2024 Chronic kidney disea se, stage 3 unspecified (ICD-10 - N18.30) 11/12/2024 Renal osteodystrophy (ICD-10 - N25.0) 08/22/2024 Renal osteodystrophy (ICD-10 - N25.0) 05/16/2024 Renal osteodystrophy (ICD-10 - N25.0) 04/04/2024 Renal osteodystrophy (ICD-10 - N25.0) 04/04/2024 Hyperuricemia withou t signs of inflammatory arthritis and tophaceous disease (ICD-10 - E79.0) 05/16/2024 Essential (primary) hypertension (ICD-10 - I10) 08/22/2024 Essential (primary) hypertension (ICD-10 - I10) 11/12/2024 Essential (primary) hypertension (ICD-10 - I10) 11/12/2024 Hyperlipidemia, unspecified (ICD-10 - E78.5) 08/22/2024 Hyperlipidemia, unspecified (ICD-10 - E78.5) 05/16/2024 Hyperlipidemia, unspecified (ICD-10 - E78.5) 04/04/2024 [...]
--- OUTSIDE RECORDS SUMMARY | 2024-12-04 00:46 | XMS_ITS | Clinical Summary ---
Author Organization [facility] Address [address] [place] [address] Care Team Providers Care Metal Rivet Machine Operator Name Role Phone Justin Salmeron MD Primary Care Provider [phone] Allergies Active Allergy Reactions Criticality Noted Date [...] (Zostavax, PF,) 19,400 unit/0.65 mL injection zostavax 81015 unt/0.65ml solr Active aspirin 81 mg enteric [...] Type Department Care Team Description 10/23/2024 Telephone [facility] [address] [facility] [address] [place] [address] Juliane Burris MD from Last [...] on file Legal Sex Female 6:43 PM INTERIOR DECORATOR Gender Identity Not on file Sexual Orientation Not on file Obstetrics History Last Filed Vital Signs Vital Sign Reading Time Taken Comments Blood Pressure 113/55 03/31/2024 12:30 PM INTERIOR DECORATOR Pulse 86 03/31/2024 12:30 PM INTERIOR DECORATOR Temperature 36.6 C (97.8 F) 03/31/2024 10:25 AM INTERIOR DECORATOR Respiratory Rate 10 03/31/2024 12:00 PM INTERIOR DECORATOR Oxygen Saturation 98% 03/31/2024 12:30 PM INTERIOR DECORATOR Inhaled Oxygen Concentration - - Weight 59.9 kg (132 lb) 04/15/2024 10:25 AM INTERIOR DECORATOR Height 149.9 cm (4' 11) 04/15/2024 10:25 AM INTERIOR DECORATOR Body Mass Index 26.66 04/15/2024 10:25 AM INTERIOR DECORATOR Plan of Treatment Health Maintenance Due Date [...] 03/31/2025 03/31/2024 Medical Devices Implanted Type Area Pump Installer Device Identifier Shelf Expiration Date Model / Serial / Lot Arlene [employer] [id number] Vertaplex Hv Autoplex Without Needle Delivery System Kit Bone - [id number] Implanted:Qty: 1 on 03/31/2019 at [facility] 02/01/2021 [id number] / / [id number] Procedures Procedure Name Priority Date/Time Associated Diagnosis [...] Bone mineral density was performed on a HoloOnaro Discovery Densitometer. Based on machine cross-calibration and [...] by the International Society of Clinical Densitometry. [id number] Juliane Burris MD IMG DXA PROCEDURES Final Resu lt from Last 3 Months or Most Recently Relevant to Health Maintenance [place] [address] MEDICARE brick&mobile [facility] [place] [address] [place] [address] [facility] [place] [address] [facility] MEDICARE ADVANTAGE [facility] MEDICARE Advance Directives For more information, please contact: [phone] * Full Code (Latest Code Status on File) Date Activated Date Inactivated Comments 12/14/2020 10:28 AM 12/14/2020 4:20 PM * Full Code Date Activated Date Inactivated Comments 12/14/2020 10:28 AM 12/14/2020 10:28 AM Care Teams Metal Rivet Machine Operator Relationship Specialty Start Date End Date Justin Salmeron MD PCP - General 12/21/20
--- NOTE | 2024-12-04 06:43 | WPDANESEPPF ---
Anes - Initial Pre Proc Eval Procedure: Operation Date: 12/04/24 07:30 Proposed Procedures p Removal Hardware Left Hip - Matty Markham MD Date/Time: 12/04/24 06:43 Surgeon: Matty Markham MD Pre Op Diagnosis: left hip painful hardware Patient Data Age: 84 Gender: F Height: 1.5 m Weight: 61 kg Allergies Allergy/AdvReac Type Severity Reaction Status Date / Time No Known Allergies Allergy Verified 11/21/24 14:34 Home Medications ?Medication ?Instructions ?Recorded ?Confirmed ?Type allopurinol 100 mg tablet 100 mg PO DAILY #30 tabs 02/13/23 11/21/24 Rx furosemide 40 mg tablet 40 mg PO BID #60 tabs 02/13/23 11/21/24 Rx losartan 25 mg tablet 25 mg PO DAILY #30 tabs 02/13/23 11/21/24 Rx calcitriol 0.25 mcg capsule 0.25 mcg PO DAILY 05/08/23 11/21/24 History ergocalciferol (vitamin D2) 1,250 1,250 mcg PO WEEKLY 05/08/23 11/21/24 History mcg (50,000 unit) capsule nmrnkhfh-unqandm-vibt-lutein tablet 1 tablet PO DAILY 05/08/23 11/21/24 History back brace #1 ea 02/22/24 11/21/24 Rx baclofen 5 mg tablet 5 mg PO Q8H #90 tabs 05/05/24 11/21/24 Rx ropinirole 0.5 mg tablet 0.5 mg PO QHS #90 tabs 05/05/24 11/21/24 Rx azelastine 137 mcg (0.1 %) nasal 137 mcg (0.137 mL) intranasal Q12H 11/12/24 11/21/24 Rx spray #30 mL naproxen sodium 220 mg capsule 220 mg PO PRN PRN pain 11/21/24 11/21/24 History (Aleve) Patient hx anesthesia problems: none Family hx anesthesia problems: none Results Review: All pre-operative results and documents have been reviewed as part of the pre-operative evaluation. [facility] Past Medical History Medical History T10 vertebral fracture Left hip pain DVT (deep venous thrombosis) Trochanteric bursitis, left hip Painful orthopaedic hardware Arthritis of knee, left Dysphagia Chronic kidney disease, stage 3 Gastroesophageal reflux disease Hypertension Osteopenia Hyperlipidemia Closed intertrochanteric fracture of left femur Fall from ladder Surgical History Surgical History History of bilateral carpal tunnel release History of repair of left rotator cuff History of breast biopsy History of lumbar fusion History of vertebroplasty History of cataract extraction History of hysterectomy Family History Family History Other Family history non-contributory Social History Social History Social History: Surrogate medical decision maker: Jose Brooks, spouse. Code status: Modified code, no intubation. Okay with CPR and medication. Smoking status: Never smoker Second hand tobacco smoke exposure: No Alcohol intake: never Substance use: never Substance use type: does not use Do You Feel Safe in your Home?: Yes Lack of Transportation: No Lack of Food: Never True Current Housing: I Have Housing Concerned About Future Housing: No Difficulty Paying Gas/Electric Bills: No Difficulty Paying for Meds: No Currently Unemployed: YES Education: Don't Know Difficulty w/ Childcare or Family Care: No Living arrangements: with family Additional living arrangements comments: Occupation/Education: retired Gender identity (if verbalized by the patient): Female Sexual Orientation (if Verbalized by the Patient): Straight or Heterosexual Spiritual care concerns: No Anes - Eval Final PreProcedure Day of Procedure 12/04/24 06:43 Patient weight: overweight Heart: regular rate and rhythm Lungs: clear to auscultation Airway: Mallampati scale class II Neurological: alert and oriented Last oral intake: >/= 8 hours ASA classification: III Emergent: no Anesthetic plan: proceed Anesthesia type and monitoring: general LMA and standard monitoring Results Review: All pre-operative results and documents have been reviewed as part of the pre-operative evaluation. Informed Consent: The patient's anesthetic plan and its attendant risks and benefits were discussed with the patient/family/POA. Questions were solicited and answers provided to the satisfaction of the patient/family/POA.
[2024-12-04] MEDS: ACETAMINOPHEN 500 MG TABLET 1000 MG PO (07:00)
[2024-12-04] MEDS: KETOROLAC 15 MG/ML VIAL (*BKC) IV PUSH (07:00)
[2024-12-04] MEDS: LACTATED RINGERS 1,000 ML 30 ML IV CONT (07:00)
--- NOTE | 2024-12-04 07:13 | WPDHPUPDATE1 ---
History and Physical Update Update Date/Time: 12/04/24 07:13 History and Physical has been reviewed, including an updated exam of the patient. There are NO changes in the patient's condition. Risks, benefits, and alternatives have been discussed and questions answered. Patient agrees to proceed with procedure.
[2024-12-04] MEDS: ceFAZolin 2 GM in SODIUM CHLORIDE 0.9% IV 50 ML 100 ML IVPB (07:30)
[2024-12-04] MEDS: BUPivacaine HCL 0.5% 10 ML AMP 20 ML INFILTRATE (07:55)
[2024-12-04] MEDS: fentaNYL CITRATE INJ (*CRX) 100 MCG/2 ML VIAL 25 MCG IV PUSH ×2 (08:50→08:53)
--- NOTE | 2024-12-04 08:51 | W.PM.PROC2 ---
Procedure Note - Detailed Date of Procedure 12/04/24 Pre-op Diagnosis left hip painful hardware Post-op Diagnosis Same Procedure Performed Removal of deep hardware left hip Surgeon Matty Markham MD [employer] 1st licensed physical therapist assistant Anesthesia General Indications 84-year-old woman who is 2 years status post left hip fracture fixation. Fixation is now prominent at the hip joint and indicated for removal. Description of Procedure Patient identified in the preoperative holding. Informed consent given. Operative extremity marked. Patient received intravenous antibiotics. Patient brought to the operating room where underwent general anesthetic by anesthesia team. Positioned supine on the fracture table. Time-out performed confirming the patient, site of the surgery and the plan. Left leg placed into the traction boot. Right leg extended out of the field. Left hip prepped and draped usual sterile surgical fashion ChloraPrep skin solution. Local anesthetic with 0.5% Marcaine plain. 15 blade knife used with previous incision over the lateral thigh. Hemostasis controlled electrocautery. The fascia was split in line with the skin incision. Fluoroscopy was then used to guide extraction pin into the hip lag screw. This was fastened. The removal wrench was then placed over this. The locking mechanism was released and the screw was removed. The hardware was able to be removed in 1 unit. Thorough irrigation of the fascia and wound with saline. Fluoroscopy confirmed removal of the hardware. Fascia closed with 2-0 Vicryl interrupted suture. Subcutaneous tissue. With 3-0 Monocryl interrupted suture and skin repaired with 3-0 Monocryl running subcuticular stitch and Dermabond. Sterile dressing applied. The patient was then woken from anesthesia, extubated and taken to the recovery room in stable condition. All sponge, needle, instrument counts were correct at the end of the case. Implants Removed: Left hip trochanteric nail lag screw. Estimated Blood Loss 10 Drains No Packing No Pathology None sent Complications None Condition Stable Disposition PACU [facility] Billing Surgery - Charge Forward: Surgery Billing ([id number])
== END 2024-12-04 09:57 | disposition home or self-care (01) ==
PROVIDERS: PCP Student in an Organized Health Care Education/Training Program; Visit Provider Orthopaedic Surgery
PROC: (CPT 20680; principal; 2024-12-04 07:30)
DX: T84.84XA Pain due to internal orthopedic prosthetic devices, implants and grafts, initial encounter (principal); M25.552 Pain in left hip; Y83.1 Surgical operation with implant of artificial internal device as the cause of abnormal reaction of the patient, or of later complication, without mention of misadventure at the time of the procedure
CPT/HCPCS: 20680; 99199; J0690; A9270; J1596; J1885; J2003; J2371; J2704; J3010; J7120

== ENCOUNTER 2024-12-12 18:12 | Emergency (ER) | payer MEDICARE, OTHER, SELFPAY ==
--- NOTE | ~2024-12-12 | CT_ITS ---
EXAMINATION: CT hip LT wo con DATE: 12/12/2024 23:18 INDICATION: Left hip pain. TECHNIQUE: Computed tomography (CT) of the left hip was performed without intravenous contrast. Automated exposure control and iterative reconstruction technique were employed. The dose-length product was 214.38 mGy-cm. COMPARISON: Pelvis CT 02/22/2024 FINDINGS: There is an old fracture deformity of proximal left femur with internal fixation with antegrade intramedullary pérez. The femoral head/neck screw has been removed. There is an acute subcapital fracture of left femoral neck with impaction. There is moderate left hip osteoarthritis. IMPRESSION: 1. Acute subcapital fracture of left femoral neck. 2. Moderate left hip osteoarthritis. Reviewed, dictated and finalized at location E.
--- NOTE | ~2024-12-12 | XR_ITS ---
EXAMINATION: XR hip LT 2V w AP pelvis DATE: 12/12/2024 18:52 INDICATION: Increasing left hip pain post instrumentation removal TECHNIQUE: Anteroposterior view of the pelvis and anteroposterior and frog-leg lateral views of the left hip were obtained. COMPARISON: 10/28/2024 in 02/22/2024 FINDINGS: Again seen is internal fixation of a chronic intertrochanteric fracture of the proximal left femur. The antegrade intramedullary pérez with distal interlocking screw remains in place. Interval removal of the femoral neck dynamic compression screw with a few residual curvilinear metallic spring fragments at the femoral head and neck. There is new varus angulation suggesting the either nonunion of the prior fracture, failure of incomplete healing or recurrent fracture. Chronic compression fractures in the lumbar spine with change of prior vertebroplasty at L2, L3 and L4. Mild osteoarthritis of the bilateral hips and mild left-sided right-sided sacroiliac osteoarthritis. IMPRESSION: 1. Chronic internally fixed intertrochanteric fracture the proximal left femur with new varus angulation post recent removal of the dynamic femoral neck compression screw portion of the fixation. This could be due to either nonunion of the prior fracture, failure of incomplete healing of a prior fracture or new fracture. Reviewed, dictated and finalized at location A. IMPRESSION: 1. Chronic internally fixed intertrochanteric fracture the proximal left femur with new varus angulation post recent removal of the dynamic femoral neck compr ession screw portion of the fixation. This could be due to either nonunion of t he prior fracture, failure of incomplete healing of a prior fracture or new fra cture.
[2024-12-12 18:17] VITALS: BP 144/51; PULSE 92; RESP 18; TEMP 36.7; O2SAT 98
--- NOTE | 2024-12-12 19:59 | ED_ITS ---
HPI - General Adult General Chief complaint: Extremity Injury, Lower <August Jiang MD - Last Filed: 12/13/24 11:31> Stated complaint: left leg post surgery pain nonweightbearing <August Jiang MD - Last Filed: 12/13/24 11:31> Time Seen by Provider: 12/12/24 18:29 <August Jiang MD - Last Filed: 12/13/24 11:31> History of Present Illness HPI narrative: This is a 84-year-old female presenting with left hip pain. Patient had a hip lag screw removed by Dr. Capellan on 12/04/2024. Since then she has been having increasing pain in her left hip and has been unable to bear weight. She had not been taking any pain medications but called the clinic today because the pain became too much to stand. She took 1/2 of a hydrocodone. It did not help. Patient denies any new falls or injuries. She denies any other physical complaints. <August Jiang MD - Last Filed: 12/13/24 11:31> Related Data Home medications: Home Medications ?Medication ?Instructions ?Recorded ?Confirmed ?Last Taken ?Type calcitriol 0.25 mcg capsule 0.25 mcg PO DAILY 05/08/23 11/21/24 Unknown History ergocalciferol (vitamin D2) 1,250 1,250 mcg PO WEEKLY 05/08/23 11/21/24 Unknown History mcg (50,000 unit) capsule veejhhio-heotfkf-txhc-lutein tablet 1 tablet PO DAILY 05/08/23 11/21/24 Unknown History naproxen sodium 220 mg capsule 220 mg PO PRN PRN pain 11/21/24 11/21/24 Unknown History (Aleve) <August Jiang MD - Last Filed: 12/13/24 11:31> Allergies/adverse reactions: Allergies Allergy/AdvReac Type Severity Reaction Status Date / Time No Known Allergies Allergy Verified 12/04/24 08:03 <August Jiang MD - Last Filed: 12/13/24 11:31> [facility] Past Medical History Medical History: Medical History T10 vertebral fracture Left hip pain DVT (deep venous thrombosis) Trochanteric bursitis, left hip Painful orthopaedic hardware Arthritis of knee, left Dysphagia Chronic kidney disease, stage 3 Gastroesophageal reflux disease Hypertension Osteopenia Hyperlipidemia Closed intertrochanteric fracture of left femur Fall from ladder <August Jiang MD - Last Filed: 12/13/24 11:31> Surgical History Surgical History: Surgical History History of bilateral carpal tunnel release History of repair of left rotator cuff History of breast biopsy History of lumbar fusion History of vertebroplasty History of cataract extraction History of hysterectomy <August Jiang MD - Last Filed: 12/13/24 11:31> Family History Family History: Family History Other Family history non-contributory <August Jiang MD - Last Filed: 12/13/24 11:31> Social History Social History: Social History Social History: Surrogate medical decision maker: Jose Brooks, spouse. Code status: Modified code, no intubation. Okay with CPR and medication. Smoking status: Never smoker Second hand tobacco smoke exposure: No Alcohol intake: never Substance use: never Substance use type: does not use Do You Feel Safe in your Home?: Yes Lack of Transportation: No Lack of Food: Never True Current Housing: I Have Housing Concerned About Future Housing: No Difficulty Paying Gas/Electric Bills: No Difficulty Paying for Meds: No Currently Unemployed: YES Education: Don't Know Difficulty w/ Childcare or Family Care: No Living arrangements: with family Additional living arrangements comments: Occupation/Education: retired Gender identity (if verbalized by the patient): Female Sexual Orientation (if Verbalized by the Patient): Straight or Heterosexual Spiritual care concerns: No <August Jiang MD - Last Filed: 12/13/24 11:31> Exam 2 Narrative: APPEARANCE: No apparent distress. Head: atraumatic. EYES: EOMI, NOSE: Atraumatic NECK: Trachea midline RESPIRATORY: No increased rate of breathing CARDIOVASCULAR: RRR, mild edema left lower extremity, +2 pulses ABDOMINAL: Non-distended MUSCULOSKELETAl: Significant pain on any movement of the left leg NEURO: Alert. Moving 4/4 extremities SKIN:: Incision site is clean dry intact, no cellulitic changes, some surrounding ecchymosis PSYCHIATRIC: Normal affect <August Jiang MD - Last Filed: 12/13/24 11:31> Course Course Emergency Course: 21:00 -patient signed out to me Dr. Rodrigez by doctor Alison at [facility] pending CT left hip. 0700: ALISON: Patient signed out to me in the morning pending discussion with the orthopedic day team at [facility]. Overnight patient required frequent rounds opiates due to significant pain in her hip. She was having episodes of hypoxia although these resolved with repositioning including elevation head of the bed. We suspect that she has undiagnosed obstructive sleep apnea. Given her persistent pain in numerous rounds of opiates I discussed an iliopsoas nerve block with the patient. She was verbally consented for the procedure and the procedure was performed without complication and significant pain relief. After numerous phone calls with their orthopedic surgeon Dr. FLYNN and our own orthopedist the patient was eventually accepted at [facility] and will be transferred for further care. Patient was accepted to ED to ED by Dr. Zazueta. <August Jiang MD - Last Filed: 12/13/24 11:31> 21:00 -patient signed out to me Dr. Rodrigez by doctor Alison at [facility] pending CT left hip. <Josemanuel Rodrigez DO - Last Filed: 12/13/24 07:27> Vital Signs Vital signs: Vital Signs Temperature 98.1 F 12/12/24 18:17 Pulse Rate 92 12/12/24 18:17 Respiratory Rate 18 12/12/24 18:17 Blood Pressure 144/51 H 12/12/24 18:17 Pulse Oximetry 98 12/12/24 18:17 Oxygen Delivery Room Air 12/12/24 18:17 Temperature 98.2 F 12/13/24 07:27 Pulse Rate 74 12/13/24 11:01 Respiratory Rate 14 12/13/24 11:01 Blood Pressure 100/50 L 12/13/24 11:01 Pulse Oximetry 99 12/13/24 11:01 Oxygen Delivery Nasal Cannula 12/13/24 10:25 Oxygen Flow Rate 2 12/13/24 10:25 <August Jiang MD - Last Filed: 12/13/24 11:31> Vital Signs Temperature 98.1 F 12/12/24 18:17 Pulse Rate 92 12/12/24 18:17 Respiratory Rate 18 12/12/24 18:17 Blood Pressure 144/51 H 12/12/24 18:17 Pulse Oximetry 98 12/12/24 18:17 Oxygen Delivery Room Air 12/12/24 18:17 Temperature 98.2 F 12/13/24 07:27 Pulse Rate 74 12/13/24 11:01 Respiratory Rate 14 12/13/24 11:01 Blood Pressure 100/50 L 12/13/24 11:01 Pulse Oximetry 99 12/13/24 11:01 Oxygen Delivery Nasal Cannula 12/13/24 10:25 Oxygen Flow Rate 2 12/13/24 10:25 <Josemanuel Rodrigez DO - Last Filed: 12/13/24 07:27> Procedures Nerve Block Nerve Block 1: Nerve block date: 12/13/24 <August Jiang MD - Last Filed: 12/13/24 11:31> Time out performed: Yes <August Jiang MD - Last Filed: 12/13/24 11:31> Local Anesthetic: bupivacaine 0.25% (30 ml w/ 10 cc sterile water) <August Jiang MD - Last Filed: 12/13/24 11:31> Amount of anesthesia used (mL): 30 <August Jiang MD - Last Filed: 12/13/24 11:31> Side: left <August Jiang MD - Last Filed: 12/13/24 11:31> Nerve Blocks: other (infrainguinal iliopsoas block) <August Jiang MD - Last Filed: 12/13/24 11:31> Procedure Successful: Yes <August Jiang MD - Last Filed: 12/13/24 11:31> Patient Tolerated Procedure: well <August Jiang MD - Last Filed: 12/13/24 11:31> Complications: none <August Jiang MD - Last Filed: 12/13/24 11:31> Additional Comments: Local Anesthetic Dosing Calculator from https://www.emrap.org/corependium/calculator/efqeq-nekjksliil-krnqzr on 12/13/2024, 07:41 AM All calculations should be rechecked by clinician prior to use RESULT SUMMARY: 48 mL For extremes of age and severe comorbidities we recommend decreasing maximum dose by 25% 120 mg INPUTS: Drug -> Bupivacaine Weight -> 60 kg Concentration -> 0.25% Concurrent Epinephrine Use -> No <August Jiang MD - Last Filed: 12/13/24 11:31> Medical Decision Making MDM Narrative Medical decision making narrative: -Course: 84-year-old female presenting with left hip pain following hardware removal. X-rays showed new angulation of hip joint which is concerning for non-union/new fracture/other complication. This was discussed with Dr. Patel. Patient will be admitted to the hospital for pain control and orthopedic evaluation. <August Jiang MD - Last Filed: 12/13/24 11:31> -Course: 84-year-old female presenting with left hip pain following hardware removal. X-rays showed new angulation of hip joint which is concerning for non-union/new fracture/other complication. This was discussed with Dr. Patel. Patient will be admitted to the hospital for pain control and orthopedic evaluation. CT of the left hip reveals preliminary report radiology impression compared to CT examination on 01/29/2023 there has been interval placement of an intramedullary pérez into the femur. There is a tract through the femoral back to the femoral head suggesting previous interlocking cannulated screw which is no longer present. On the axial imaging there is no appreciable osseous bridging of the anterior femoral neck and regions of incomplete osseous bridging involving the posterior aspect of the superior femoral neck. Subtle insufficiency fracture is suspected. The femoral head remains in the acetabulum. Incidental findings include the included left pelvic bones appear intact; included proximal left femoral shaft is otherwise unremarkable; no significant overlying acute traumatic soft tissue abnormality. I spoke with Dr. Jack regarding the results and he is recommending transfer. I spoke with the patient and granddaughter have preference is for the [facility] access line contacted. [facility] notes that this would need [facility] main [facility] given the complexity of the case. Connected with the ER doctor who notes that given the lack of trauma no ER to ER transfer. I was connected with [facility]oped[facility] who notes that will have to call back in the morning time a 8:00 a.m. is unable to accept the patient at this time as they will need collaboration between the reconstructive Ortho and Trauma surgery. Note that we can try other hospital systems as well in the interim. I spoke with family regarding this and did not want to try other facilities at this time, will wait for 8 AM. 07:00 -patient signed out to oncoming physician doctor Alison at shift change. < Josemanuel Rodrigez DO - Last Filed: 12/13/24 07:27> Vital Signs Vital Signs: Vital Signs Temperature 98.1 F 12/12/24 18:17 Pulse Rate 92 12/12/24 18:17 Respiratory Rate 18 12/12/24 18:17 Blood Pressure 144/51 H 12/12/24 18:17 Pulse Oximetry 98 12/12/24 18:17 Oxygen Delivery Room Air 12/12/24 18:17 Temperature 98.2 F 12/13/24 07:27 Pulse Rate 74 12/13/24 11:01 Respiratory Rate 14 12/13/24 11:01 Blood Pressure 100/50 L 12/13/24 11:01 Pulse Oximetry 99 12/13/24 11:01 Oxygen Delivery Nasal Cannula 12/13/24 10:25 Oxygen Flow Rate 2 12/13/24 10:25 <August Jiang MD - Last Filed: 12/13/24 11:31> Vital Signs Temperature 98.1 F 12/12/24 18:17 Pulse Rate 92 12/12/24 18:17 Respiratory Rate 18 12/12/24 18:17 Blood Pressure 144/51 H 12/12/24 18:17 Pulse Oximetry 98 12/12/24 18:17 Oxygen Delivery Room Air 12/12/24 18:17 Temperature 98.2 F 12/13/24 07:27 Pulse Rate 74 12/13/24 11:01 Respiratory Rate 14 12/13/24 11:01 Blood Pressure 100/50 L 12/13/24 11:01 Pulse Oximetry 99 12/13/24 11:01 Oxygen Delivery Nasal Cannula 12/13/24 10:25 Oxygen Flow Rate 2 12/13/24 10:25 <Josemanuel Rodrigez DO - Last Filed: 12/13/24 07:27> Lab Data Result diagrams: 12/12/24 20:59 12/12/24 20:59 <August Jiang MD - Last Filed: 12/13/24 11:31> Labs: Lab Results 12/12/24 Range/Units 20:59 WBC 9.1 (4.5-10.0) K/mm3 RBC 3.74 L (4.2-5.4) M/mm3 Hgb 11.5 L (12.0-15.0) g/dL Hct 34.5 L (37.0-47.0) % MCV 92.2 (80-100) fl MCH 30.7 (26-34) pg MCHC 33.3 (32-36) g/dl RDW 13.6 (11.5-14.5) % Plt Count 183 (150-375) k/mm3 MPV 9.6 (7.4-10.4) fl Immature Gran % (Auto) 0.3 (0-0.5) % Neut % (Auto) 74.4 H (45.5-73.1) % Lymph % (Auto) 14.3 L (18.3-44.2) % [place] % (Auto) 9.7 H (2.6-8.5) % Eos % (Auto) 0.9 (0-4.4) % Baso % (Auto) 0.4 (0.2-1.2) % Lymph # (Auto) 1.30 (0.9-3.2) K/mm3 [place] # (Auto) 0.9 H (0.1-0.6) K/mm3 Eos # (Auto) 0.1 (0-0.3) K/mm3 Baso # (Auto) 0.0 (0.0-0.1) K/mm3 Abs Immat Gran (auto) 0.03 (0.00-0.031) K/mm3 Absolute Neuts (auto) 6.7 (1.3-6.7) K/mm3 Absolute Nucleated RBC 0.000 (0.0-0.012) K/mm3 Nucleated RBC % 0.0 (0.0-0.2) % Sodium 133 L (137-145) mmol/L Potassium 3.7 (3.4-5.0) mmol/L Chloride 98 (98-107) mmol/L Carbon Dioxide 27 (22-30) mmol/L Anion Gap 8 (4-12) mmol/L BUN 39 H (7-17) mg/dL Creatinine 1.01 H (0.7-1.0) mg/dL Estim Creat Clear Calc Not Reportable Estimated GFR 52 L (59 - ) Glucose 121 H (65-110) mg/dL Calcium 9.4 (8.4-10.2) mg/dL Total Bilirubin 1.3 (0.2-1.3) mg/dL AST 47 H (14-36) U/L ALT 31 (6-35) U/L Alkaline Phosphatase 119 (38-126) U/L Total Protein 7.8 (6.3-8.2) g/dL Albumin 3.9 (3.5-5.1) g/dL <August Jiang MD - Last Filed: 12/13/24 11:31> Lab Results 12/12/24 Range/Units 20:59 WBC 9.1 (4.5-10.0) K/mm3 RBC 3.74 L (4.2-5.4) M/mm3 Hgb 11.5 L (12.0-15.0) g/dL Hct 34.5 L (37.0-47.0) % MCV 92.2 (80-100) fl MCH 30.7 (26-34) pg MCHC 33.3 (32-36) g/dl RDW 13.6 (11.5-14.5) % Plt Count 183 (150-375) k/mm3 MPV 9.6 (7.4-10.4) fl Immature Gran % (Auto) 0.3 (0-0.5) % Neut % (Auto) 74.4 H (45.5-73.1) % Lymph % (Auto) 14.3 L (18.3-44.2) % [place] % (Auto) 9.7 H (2.6-8.5) % Eos % (Auto) 0.9 (0-4.4) % Baso % (Auto) 0.4 (0.2-1.2) % Lymph # (Auto) 1.30 (0.9-3.2) K/mm3 [place] # (Auto) 0.9 H (0.1-0.6) K/mm3 Eos # (Auto) 0.1 (0-0.3) K/mm3 Baso # (Auto) 0.0 (0.0-0.1) K/mm3 Abs Immat Gran (auto) 0.03 (0.00-0.031) K/mm3 Absolute Neuts (auto) 6.7 (1.3-6.7) K/mm3 Absolute Nucleated RBC 0.000 (0.0-0.012) K/mm3 Nucleated RBC % 0.0 (0.0-0.2) % Sodium 133 L (137-145) mmol/L Potassium 3.7 (3.4-5.0) mmol/L Chloride 98 (98-107) mmol/L Carbon Dioxide 27 (22-30) mmol/L Anion Gap 8 (4-12) mmol/L BUN 39 H (7-17) mg/dL Creatinine 1.01 H (0.7-1.0) mg/dL Estim Creat Clear Calc Not Reportable Estimated GFR 52 L (59 - ) Glucose 121 H (65-110) mg/dL Calcium 9.4 (8.4-10.2) mg/dL Total Bilirubin 1.3 (0.2-1.3) mg/dL AST 47 H (14-36) U/L ALT 31 (6-35) U/L Alkaline Phosphatase 119 (38-126) U/L Total Protein 7.8 (6.3-8.2) g/dL Albumin 3.9 (3.5-5.1) g/dL <Josemanuel Rodrigez DO - Last Filed: 12/13/24 07:27> Discharge Plan Discharge Clinical Impression: Acute pain of left hip <August Jiang MD - Last Filed: 12/13/24 11:31> Patient Disposition: Acute Care Hospital <August Jiang MD - Last Filed: 12/13/24 11:31> Condition: Stable <August Jiang MD - Last Filed: 12/13/24 11:31> Patient Language: [place] <August Jiang MD - Last Filed: 12/13/24 11:31> Prescriptions: No Action calcitriol 0.25 mcg capsule 0.25 mcg PO DAILY ergocalciferol (vitamin D2) 1,250 mcg (50,000 unit) capsule 1,250 mcg PO WEEKLY twrjhpgo-fhxqist-uocu-lutein Tablet 1 tablet PO DAILY azelastine 137 mcg (0.1 %) spray,non-aerosol 137 mcg intranasal Q12H Qty: 30 0RF Rx Instructions: administer into each nostril ropinirole 0.5 mg tablet 0.5 mg PO QHS Qty: 90 1RF baclofen 5 mg tablet 5 mg PO Q8H Qty: 90 0RF (DME) back brace Misc See Rx Instructions .Route Qty: 1 0RF Rx Instructions: LSO back brace naproxen sodium [Aleve] 220 mg capsule 220 mg PO PRN PRN (Reason: pain) Patient Comments: HOLD FOR 7 days prior hydrocodone-acetaminophen 5-325 mg tablet 1 tablet PO Q6H PRN (Reason: pain) Qty: 14 0RF furosemide 40 mg tablet 40 mg PO BID Qty: 60 0RF allopurinol 100 mg tablet 100 mg PO DAILY Qty: 30 0RF losartan 25 mg tablet 25 mg PO DAILY Qty: 30 0RF <August Jiang MD - Last Filed: 12/13/24 11:31> Follow-up/Referrals: Alfreda Boyce PA-C [Primary Care Provider, Family Practice] <August Jiang MD - Last Filed: 12/13/24 11:31>
[2024-12-12] MEDS: ACETAMINOPHEN 500 MG TABLET 1000 MG PO (20:06)
[2024-12-12] MEDS: oxyCODONE HCL (*CRX) 5 MG TAB IR PO (20:06)
[2024-12-12 21:06] LABS: Hematocrit 34.5 % (37.0-47.0); Hemoglobin 11.5 g/dL (12.0-15.0); Immature Granulocyte Percent A 0.3 % (0-0.5); Lymphocytes Absolute Auto 1.30 K/mm3 (0.9-3.2); Mean Corpuscular HGB Conc 33.3 g/dl (32-36); Mean Corpuscular Hemoglobin 30.7 pg (26-34); Mean Corpuscular Volume 92.2 fl (80-100); Nucleated Red Blood Cells Absolute Auto 0.000 K/mm3 (0.0-0.012); Nucleated Red Blood Cells Perc 0.0 % (0.0-0.2); Platelet Count Result 183 k/mm3 (150-375); Red Blood Count 3.74 M/mm3 (4.2-5.4); White Blood Count 9.1 K/mm3 (4.5-10.0)
[2024-12-12 21:26] LABS: Alanine Aminotransferase 31 U/L (6-35); Albumin Level 3.9 g/dL (3.5-5.1); Alkaline Phosphatase 119 U/L (38-126); Anion Gap 8 mmol/L (4-12); Aspartate Amino Transferase 47 U/L (14-36); Bilirubin,Total 1.3 mg/dL (0.2-1.3); Blood Urea Nitrogen 39 mg/dL (7-17); Calcium 9.4 mg/dL (8.4-10.2); Carbon Dioxide 27 mmol/L (22-30); Chloride 98 mmol/L (98-107); Estimated Glomerular Filt Rate 52; Glucose 121 mg/dL (65-110); Potassium 3.7 mmol/L (3.4-5.0); Sodium 133 mmol/L (137-145); Total Protein 7.8 g/dL (6.3-8.2)
[2024-12-12] MEDS: fentaNYL CITRATE INJ (*CRX) 100 MCG/2 ML VIAL 50 MCG IV PUSH (22:02)
[2024-12-12 22:19] VITALS: BP 120/64; PULSE 86; RESP 18; O2SAT 97
[2024-12-13] VITALS (11 sets, daily range): BP systolic 100–132; BP diastolic 50–67; PULSE 74–94; RESP 14–24; TEMP 36.8; O2SAT 70–100
--- NOTE | 2024-12-13 06:49 | PC.NURSE ---
This RN administered 0.5 ml dilaudid slowly over 2 mins, pt began to desat after 5 mins into the 70s. 3L NC applied to pt, pt sats back into the 90s. EDP made aware
--- NOTE | 2024-12-13 08:45 | PC.NURSE ---
EDP Dr. Jiang performed Fascia Iliaca Nerve Block due to pt pain at 0845. Pt reports 0/10 pain after procedure.
--- NOTE | 2024-12-13 10:19 | PC.NURSE ---
Pt has indwelling garcia catheter in place, draining WNL. Catheter placed yesterday by previous RN.
== END 2024-12-13 11:49 | disposition short-term general hospital (02) ==
PROVIDERS: Emergency Medicine; Emergency Provider Student in an Organized Health Care Education/Training Program; PCP Student in an Organized Health Care Education/Training Program
DX: M25.552 Pain in left hip (principal); I12.9 Hypertensive chronic kidney disease with stage 1 through stage 4 chronic kidney disease, or unspecified chronic kidney disease; N18.30 Chronic kidney disease, stage 3 unspecified; E78.5 Hyperlipidemia, unspecified; M17.12 Unilateral primary osteoarthritis, left knee; M85.80 Other specified disorders of bone density and structure, unspecified site; Z98.1 Arthrodesis status; Z86.718 Personal history of other venous thrombosis and embolism; Z98.49 Cataract extraction status, unspecified eye; Z90.710 Acquired absence of both cervix and uterus; Z79.899 Other long term (current) drug therapy; M16.12 Unilateral primary osteoarthritis, left hip; R93.6 Abnormal findings on diagnostic imaging of limbs
CPT/HCPCS: 36415; 51702; 64421; 64450; 73502; 73700; 80053; 85025; 96374; 96375; 99285; A9270; J2312; J3010